=== PATIENT | male | born 1960 | race Caucasian/White ===

== ENCOUNTER 2017-01-03 15:52 | Inpatient (IN) | payer BC ==
[~2017-01-03] VITALS: Ht 182.9 cm; Wt 108.5 kg
[~2017-01-03 15:52] MED LIST: LORT5TAB PO; PHEN12.5 PO; TAMS0.4C67 PO; VITAMINS
[2017-01-03 15:54] VITALS: BP 134/86; PULSE 118; RESP 20; TEMP 98.6; O2SAT 96
--- NOTE | 2017-01-03 16:21 | PD ---
Physical Exam Date Seen by Provider: Jan 03, 2017 Time Seen by Provider: 16:19 Narrative 56 y/o male with Hx anxiety and panic attacks with Hx of severe attack today with reported Syncopy with hitting back of head after passing out. Patient has mild SPENCER and feels fine otherwise now. Vital signs reviewed. Patient stable. Awaiting Bed placement. Data Data Last Documented VS Vital Signs Date Time Temp Pulse Resp B/P Pulse Ox O2 Delivery O2 Flow Rate FiO2 01/03/17 15:54 98.6 118 20 134/86 96 MDM Medical Record Reviewed: Yes Supervised Visit with MIRIAM: Yes Condition: Stable Gavin Smith Jan 03, 2017 16:21
--- NOTE | 2017-01-03 20:49 | PD ---
HPI Chief Complaint: Syncope/Near-Syncope Time Seen by Provider: 20:46 Travel History International Travel<30 days: No Contact w/Intl Traveler<30days: No Traveled to known affect area: No History of Present Illness HPI 56-year-old male with history of anxiety presents to the ED for evaluation of syncopal episode. This occurred 8 hours ago. Patient states that he was coming back from taking out the trash when he had an episode of dizziness and palpitations of the heart. He bent over and took a few deep breaths and woke up an unknown period of time later on the ground. On presentation he denies headache, dizziness, vision changes, speech difficulties, weakness. He denies chest pain, shortness of breath, nausea, vomiting, diaphoresis. He endorses history of similar episodes of palpitations and dizziness which she associates with his anxiety. He sees Dr. Mora regularly, last visit that within the last month. He is never had a cardiac workup. He is an active smoker since the age of 14. PFSH Past Medical History Diminished Hearing: No Past Surgical History Appendectomy: Yes Tonsillectomy: Yes Tympanostomy Tube: Yes Social History Alcohol Use: Yes (2-3 vodka daily) Tobacco Use: Yes Substance Use: No Allergies-Medications (Allergen,Severity, Reaction): Coded Allergies: No Known Allergies (Verified , 01/03/17) Reported Meds & Prescriptions Reported Meds & Active Scripts Active Reported Alprazolam 0.25 Mg Tab 0 PO Q4H PRN [Vitamins] DAILY Review of Systems Except as stated in HPI: all other systems reviewed are Neg Physical Exam Narrative GENERAL: Well-nourished, well-developed white male in no acute distress. SKIN: Focused skin assessment warm/dry. Tender ecchymosis on the right occiput. HEAD: Normocephalic. No tenderness to palpation of the skull bones. EYES: No scleral icterus. No injection or drainage. NECK: Supple, trachea midline. No JVD or lymphadenopathy. CARDIOVASCULAR: Regular rate and rhythm without murmurs, gallops, or rubs. RESPIRATORY: Breath sounds there and I'll sounds. Equal bilaterally. No accessory muscle use. GASTROINTESTINAL: Abdomen soft, non-tender, nondistended. MUSCULOSKELETAL: No cyanosis, or edema. NEUROLOGICAL: Awake and alert. Cranial nerves II through XII intact. Motor and sensory grossly within normal limits. 5/5 muscle strength in all muscle groups. Normal speech. BACK: Nontender without obvious deformity. No CVA tenderness. Data Data Last Documented VS Vital Signs Date Time Temp Pulse Resp B/P Pulse Ox O2 Delivery O2 Flow Rate FiO2 01/03/17 22:50 75 18 111/74 99 Room Air 01/03/17 15:54 98.6 Orders Electrocardiogram (01/03/17 ) Complete Blood Count With Diff (01/03/17 20:48) Comprehensive Metabolic Panel (01/03/17 20:48) Troponin I (01/03/17 20:48) Chest, Single Ap (01/03/17 ) Admit Order (Ed Use Only) (01/03/17 ) Labs Laboratory Tests Test 01/03/17 21:05 White Blood Count 11.5 TH/MM3 Red Blood Count 4.71 MIL/MM3 Hemoglobin 14.8 GM/DL Hematocrit 45.0 % Mean Corpuscular Volume 95.4 FL Mean Corpuscular Hemoglobin 31.5 PG Mean Corpuscular Hemoglobin 33.0 % Concent Red Cell Distribution Width 14.0 % Platelet Count 207 TH/MM3 Mean Platelet Volume 8.7 FL Neutrophils (%) (Auto) 62.5 % Lymphocytes (%) (Auto) 27.0 % Monocytes (%) (Auto) 6.5 % Eosinophils (%) (Auto) 3.4 % Basophils (%) (Auto) 0.6 % Neutrophils # (Auto) 7.2 TH/MM3 Lymphocytes # (Auto) 3.1 TH/MM3 Monocytes # (Auto) 0.7 TH/MM3 Eosinophils # (Auto) 0.4 TH/MM3 Basophils # (Auto) 0.1 TH/MM3 CBC Comment DIFF FINAL Differential Comment Sodium Level 138 MEQ/L Potassium Level 4.1 MEQ/L Chloride Level 106 MEQ/L Carbon Dioxide Level 24.7 MEQ/L Anion Gap 7 MEQ/L Blood Urea Nitrogen 17 MG/DL Creatinine 1.11 MG/DL Estimat Glomerular Filtration 68 ML/MIN Rate Random Glucose 89 MG/DL Calcium Level 8.4 MG/DL Total Bilirubin 1.1 MG/DL Aspartate Amino Transf 27 U/L (AST/SGOT) Alanine Aminotransferase 52 U/L (ALT/SGPT) Alkaline Phosphatase 66 U/L Troponin I 0.03 NG/ML Total Protein 6.8 GM/DL Albumin 3.7 GM/DL Magnesium Level 2.3 MG/DL MDM Medical Decision Making Medical Screen Exam Complete: Yes Emergency Medical Condition: Yes Differential Diagnosis Cardiogenic syncope versus arrhythmia versus anxiety versus contusion versus less likely skull fracture versus less likely ICH versus other Narrative Course 56-year-old male with PMH of anxiety presents to the ED 8 hours after an episode of syncope. Patient states he was taking out the garbage, had a few seconds of palpitations and shortness of breath, woke up on the ground. Reports history of similar episodes of palpitations and SOB which she attributes to anxiety. He's never had a cardiac workup. Asymptomatic on presentation. Physical exam is unremarkable. No focal neuro deficits. Lab work is pending. Disposition per Dr. Maxwell. Condition: Stable Dania Cordero Jan 03, 2017 20:49
[2017-01-03] MEDS ORDERED: ALPR0.25 PO (20:52)
[2017-01-03 20:53] VITALS: BP 116/86; PULSE 84; RESP 20
--- NOTE | 2017-01-03 21:02 | RADRPT ---
EXAM DATE/TIME: 01/03/2017 20:59 [facility] COMPARISON: No previous studies available for comparison. INDICATIONS : Syncope MEDICAL HISTORY : None. SURGICAL HISTORY : None. ENCOUNTER: Initial ACUITY: 1 day PAIN SCORE: 0/10 LOCATION: chest FINDINGS: Lungs are focally clear. Cardiac silhouette is mildly enlarged. Pulmonary vascularity is satisfactory . There is nothing to suggest effusion. CONCLUSION: Mild cardiomegaly Jorge Bucio MD on January 03, 2017 at 21:00 Board Certified Radiologist. This report was verified electronically.
[2017-01-03 21:30] LABS: AUTOMATED NEUTROPHIL # 7.2 TH/MM3 (1.8-7.7); BASOPHIL # 0.1 TH/MM3 (0-0.2); BASOPHIL % 0.6 % (0.0-2.0); EOSINOPHIL # 0.4 TH/MM3 (0-0.4); EOSINOPHIL % 3.4 % (0.0-4.0); HEMO FLAGS DIFF FINAL; LYMPHOCYTE # 3.1 TH/MM3 (1.0-4.8); MEAN CELL VOLUME 95.4 FL (80.0-100.0); MEAN CORPUSCULAR HEMOGLOBIN 31.5 PG (27.0-34.0); MONO % 6.5 % (0.0-8.0); NEUT % 62.5 % (16.0-70.0); PLATELET COUNT 207 TH/MM3 (150-450); RED BLOOD COUNT 4.71 MIL/MM3 (4.50-5.90); WHITE BLOOD COUNT 11.5 TH/MM3 (4.0-11.0)
[2017-01-03 21:43] LABS: ALT (GPT) 52 U/L (12-78)
[2017-01-03 21:47] LABS: ALKALINE PHOSPHATASE 66 U/L (45-117); TOTAL BILIRUBIN ADULT 1.1 MG/DL (0.2-1.0)
[2017-01-03 21:54] LABS: ANION GAP 7 MEQ/L (5-15); AST (GOT) 27 U/L (15-37); BICARBONATE 24.7 MEQ/L (21.0-32.0); BLOOD UREA NITROGEN 17 MG/DL (7-18); CHLORIDE 106 MEQ/L (98-107); GLOMERULAR FILTRATION RATE 68 ML/MIN (>89); POTASSIUM 4.1 MEQ/L (3.5-5.1); SODIUM (NA) 138 MEQ/L (136-145)
--- NOTE | 2017-01-03 22:35 | PD ---
Data Data Last Documented VS Vital Signs Date Time Temp Pulse Resp B/P Pulse Ox O2 Delivery O2 Flow Rate FiO2 01/03/17 22:50 75 18 111/74 99 Room Air 01/03/17 15:54 98.6 Orders Electrocardiogram (01/03/17 ) Complete Blood Count With Diff (01/03/17 20:48) Comprehensive Metabolic Panel (01/03/17 20:48) Troponin I (01/03/17 20:48) Chest, Single Ap (01/03/17 ) Admit Order (Ed Use Only) (01/03/17 ) Labs Laboratory Tests Test 01/03/17 21:05 White Blood Count 11.5 TH/MM3 Red Blood Count 4.71 MIL/MM3 Hemoglobin 14.8 GM/DL Hematocrit 45.0 % Mean Corpuscular Volume 95.4 FL Mean Corpuscular Hemoglobin 31.5 PG Mean Corpuscular Hemoglobin 33.0 % Concent Red Cell Distribution Width 14.0 % Platelet Count 207 TH/MM3 Mean Platelet Volume 8.7 FL Neutrophils (%) (Auto) 62.5 % Lymphocytes (%) (Auto) 27.0 % Monocytes (%) (Auto) 6.5 % Eosinophils (%) (Auto) 3.4 % Basophils (%) (Auto) 0.6 % Neutrophils # (Auto) 7.2 TH/MM3 Lymphocytes # (Auto) 3.1 TH/MM3 Monocytes # (Auto) 0.7 TH/MM3 Eosinophils # (Auto) 0.4 TH/MM3 Basophils # (Auto) 0.1 TH/MM3 CBC Comment DIFF FINAL Differential Comment Sodium Level 138 MEQ/L Potassium Level 4.1 MEQ/L Chloride Level 106 MEQ/L Carbon Dioxide Level 24.7 MEQ/L Anion Gap 7 MEQ/L Blood Urea Nitrogen 17 MG/DL Creatinine 1.11 MG/DL Estimat Glomerular Filtration 68 ML/MIN Rate Random Glucose 89 MG/DL Calcium Level 8.4 MG/DL Total Bilirubin 1.1 MG/DL Aspartate Amino Transf 27 U/L (AST/SGOT) Alanine Aminotransferase 52 U/L (ALT/SGPT) Alkaline Phosphatase 66 U/L Troponin I 0.03 NG/ML Total Protein 6.8 GM/DL Albumin 3.7 GM/DL MDM Supervised Visit with MIRIAM: Yes Narrative Course The history, exam, and medical decision-making in the associated mid-level provider note were completed with my assistance. I reviewed and agree with the findings presented. I attest that I had a [id number] encounter with the patient on the same day, and personally performed and documented my assessment and findings in the medical record. *My assessment and Findings: 56 year-old woman who presents emergency department complaining of palpitations and a syncopal episode. He's had multiple episodes of palpitations in the past , ongoing for the past year or 2, usually once every month or 2. He is a so she with exertion outside, and exposure to heat. Today he had similar episode, squatted down to deep breath secondary normal he does but then woke up on the ground. His a bump on the back of his head. This happened about 8 hours ago or so. He has had some long flights recently but no other risk factors for DVT or PE. He looks well. EKG shows right bundle branch block with a left posterior fascicular block. No old for comparison. He looks well. He's been asymptomatic since the episode. He has a history of tobacco use. Labs and chest x-ray with mild cardiomegaly. Taken altogether, history is a little bit suspicious for arrhythmia, he has an abnormal EKG, he is multiple risk factors, he also some cardiomegaly on his chest x-ray that could predispose him to a dangerous arrhythmia, given this, we' ll plan on admission for observation for cardiac monitoring. Diagnosis Primary Impression: Syncope Admitting Information Admitting Physician Requests: Observation Condition: Stable Nate Maxwell MD Jan 03, 2017 22:35
[2017-01-03 22:50] VITALS: BP_SYST 11; BP_SYST 111; BP_DIAS 74; PULSE 70; PULSE 75; RESP 18; O2SAT 99
[2017-01-03] MEDS ORDERED: NALOXONE HCL 0.4 MG/ML AMP IV PRN (23:15)
[2017-01-03] MEDS ORDERED: SODIUM CHLORIDE 0.9% FLUSH 10 ML FLUSH IV FLUSH PRN (23:15)
--- NOTE | 2017-01-03 23:54 | HHI.HP ---
[facility] Unknown Admission Diagnosis syncope Diagnoses: (1) Syncope Chief Complaint: "I passed out and hit my head" Travel History International Travel<30 Days: No Contact w/Intl Traveler <30 Da: No Traveled to Known Affected Are: No History of Present Illness Written by aRdha Wang, acting as scribe for Dr. Ashford on 01/03/17 at 23:54. Walked out from office to [employer]; felt palpitations and dizziness and then passed out and hit his head on concrete when he fell. The next thing he remembers is waking up and looking at the prudence. The patient reports diaphoresis but states it was hot outside. Denies paresthesias; denies any unilateral weakness. He has had similar episodes that are nearly syncopal in nature - palpitations and dizziness - sits down and relaxes, drinks water and this relieves the symptoms. Last episode of near syncope occurred 2 months ago. Reports some accompanying shortness of breath. Symptoms (near syncope) have been going on intermittently for the past 2 - 3 years. Reports shortness of breath during hotter days. Reports bilateral knee pains and reports left calf "cramps". - 25 of December, he traveled to [place]. Denies nausea, vomiting, or diarrhea. Denies black or red stool, hematuria, dysuria. Denies cough or fever. Had a colonoscopy 6 months ago - polyps found. Review of Systems Except as stated in HPI: all other systems reviewed are Neg Past Family Social History Past Medical History Colon polyps Nephrolithiasis Denies hypertension, diabetes, CAD, CHF, breathing problems, liver problems, kidney problems, DVT, PE, CVA, seizures, or cancer . Past Surgical History Hernia repair as child Tympanostomy tubes as a child Appendectomy Colonoscopy 6 months ago Reported Medications takes several otc meds and supplements prescribed by his chiropractor . Allergies: Coded Allergies: No Known Allergies (Verified , 01/03/17) Active Ordered Medications Current Medications Sodium Chloride (NS Flush) 2 ml UNSCH PRN IV FLUSH FLUSH AFTER USING IV ACCESS ; Start 01/03/17 at 23:15 Sodium Chloride (NS Flush) 2 ml BID IV FLUSH ; Start 01/04/17 at 09:00 Naloxone HCl (Narcan Inj) 0.4 mg UNSCH PRN IV SEE LABEL COMMENTS; Start at 23:15 . Family History Mother with atrial fibrillation and lung problems (had only one lung) Brother with lactose intolerance . Social History Tobacco: smokes cigarettes 1 to 2 PPD Alcohol: drinks a couple of mixed drinks mostly on weekends Illicit Drugs: denies IVD use, denies cocaine Originally from [place] . Physical Exam Vital Signs Vital Signs Date Time Temp Pulse Resp B/P Pulse Ox O2 Delivery O2 Flow Rate FiO2 01/03/17 22:50 75 18 111/74 99 Room Air 01/03/17 20:53 84 20 116/86 Room Air 01/03/17 20:45 Room Air 01/03/17 15:54 98.6 118 20 134/86 96 Physical Exam GENERAL: This is a well-nourished, well-developed patient, in no apparent distress. SKIN: No rashes, ecchymoses or lesions. Cool and dry. HEAD: Atraumatic. Normocephalic. EYES: No scleral icterus. No injection or drainage. ENT: Nose without bleeding, purulent drainage. NECK: Trachea midline. No JVD. CARDIOVASCULAR: Irregular rate and rhythm without murmurs, gallops, or rubs. RESPIRATORY: Clear to auscultation. Breath sounds equal bilaterally. No wheezes , rales, or rhonchi. GASTROINTESTINAL: Abdomen soft, non-tender, nondistended. No guarding. MUSCULOSKELETAL: Extremities without clubbing, cyanosis, or edema. No calf tenderness. NEUROLOGICAL: Awake and alert. Motor and sensory grossly within normal limits. Normal speech. . Laboratory Laboratory Tests Test 01/03/17 21:05 White Blood Count 11.5 Red Blood Count 4.71 Hemoglobin 14.8 Hematocrit 45.0 Mean Corpuscular Volume 95.4 Mean Corpuscular Hemoglobin 31.5 Mean Corpuscular Hemoglobin 33.0 Concent Red Cell Distribution Width 14.0 Platelet Count 207 Mean Platelet Volume 8.7 Neutrophils (%) (Auto) 62.5 Lymphocytes (%) (Auto) 27.0 Monocytes (%) (Auto) 6.5 Eosinophils (%) (Auto) 3.4 Basophils (%) (Auto) 0.6 Neutrophils # (Auto) 7.2 Lymphocytes # (Auto) 3.1 Monocytes # (Auto) 0.7 Eosinophils # (Auto) 0.4 Basophils # (Auto) 0.1 CBC Comment DIFF FINAL Differential Comment Sodium Level 138 Potassium Level 4.1 Chloride Level 106 Carbon Dioxide Level 24.7 Anion Gap 7 Blood Urea Nitrogen 17 Creatinine 1.11 Estimat Glomerular Filtration 68 Rate Random Glucose 89 Calcium Level 8.4 Total Bilirubin 1.1 Aspartate Amino Transf 27 (AST/SGOT) Alanine Aminotransferase 52 (ALT/SGPT) Alkaline Phosphatase 66 Troponin I 0.03 Total Protein 6.8 Albumin 3.7 Result Diagram: 01/03/17210401/03/172104 Imaging Last Impressions Chest X-Ray 01/03/17 0000 Signed Impressions: Service Date/Time: Tuesday, January 03, 2017 20:59 - CONCLUSION: Mild cardiomegaly Jorge Bucio MD . Assessment and Plan Problem List: (1) Syncope ICD Code: R55 Status: Acute Assessment and Plan Syncope - 12 lead EKG personally reviewed and shows first-degree AV block, right bundle branch block, left anterior fascicular block along with frequent PVCs - no prior EKGs are available for comparison - check 2D echocardiogram to evaluate cardiac structure and function - carotid ultrasound to evaluate for carotid stenosis - check D-dimer - serial EKGs and cardiac enzymes to r/o ACS - continuous cardiac telemetry to monitor for cardiac arrhythmia - Cardiology consultation - given that pt has had few episodes of near syncope- and today's episode of true syncope preceded by palpitations, and EKG showing RBBB with LAFB (ppm indication vs loop recorder?) - Check magnesium level to r/o hypomagnesemia as contributing factor to cardiac irritability DVT prophylaxis - Lovenox 40 mg subq [id number] This note was transcribed by [email or web address] [Radha Wang]. I, Dr. Casandra Ashford personally performed the history, physical exam, and medical decision making; and confirmed the accuracy of the information in the transcribed note. Authenticated by Dr. Casandra Ashford on 01/03/17 at 23:54. Discussed Condition With ER physician, patient . Radha Wang Jan 03, 2017 23:54 Casandra Ashford MD Jan 04, 2017 03:16
[2017-01-03 23:55] VITALS: BP 103/67; PULSE 75; RESP 18; O2SAT 97
[2017-01-04] VITALS (8 sets, daily range): BP systolic 89–135; BP diastolic 58–79; PULSE 65–86; RESP 14–19; TEMP 97.8–98.6; O2SAT 94–99
[2017-01-04] MEDS: ENOXAPARIN SODIUM 40 MG/0.4 ML SYRINGE SQ SCH (01:07)
[2017-01-04] MEDS: SODIUM CHLORIDE 0.9% FLUSH 10 ML FLUSH IV FLUSH SCH ×2 (08:01→19:45)
--- NOTE | 2017-01-04 08:45 | PD.CONS ---
HPI Service CV Consult Requested By Reason for Consult syncope Primary Care Physician Unknown History of Present Illness Here with a syncopal episode. He does not have any significant past medical history. He has had afternoon episodes of near syncope. These he has been able to recognize symptoms, lightheadedness and tachycardia, and then calm himself and the symptoms abort. This episode happened in the morning. He was taking office trash out to a dumpster and on the way back began having lightheadedness and tachycardia. He bent over to try to stop it and the next thing he knew he was staring up at the prudence. He states he drinks 4 to 5 bottles of water per day. He smoke one to two packs of cigarettes per day. Review of telemetry shows multiple PVC's in singlets and triplets and they are multifocal. (Clem Aranda) Review of Systems Consitutional: DENIES: Fatigue, Fever, Chills, Weight gain, Weight loss Eyes: DENIES: Amaurosis Fugax, Change in vision HEENT: COMPLAINS OF: Lightheadedness Respiratory: DENIES: See HPI, Cough, Snoring, Shortness of breath, Wheezing, Sputum production Cardiovascular: COMPLAINS OF: Tachycardia Gastrointestinal: DENIES: Nausea, Vomiting, Change in bowel habits, Reflux, Bloody stools, Melena Genitourinary: DENIES: Urinary incontinence, Difficulty voiding Integumentary: DENIES: Rash Neurologic: DENIES: Tingling or numbness, Memory problems, Poor Balance, Stroke symptoms Musculoskeletal: DENIES: Joint pain, Muscle pain, Limited range of motion, Back pain Psychiatric: COMPLAINS OF: Anxiety, Depression, Sleep disturbances Hematologic: DENIES: Bruising tendencies, Bleeding tendencies Endocrine: DENIES: Weight gain, Weight loss, Thyroid disease (Clem Aranda ) Past Family Social History Allergies: Coded Allergies: No Known Allergies (Verified , 01/03/17) Past Medical History Colon polyps Nephrolithiasis Reported Medications Reported Meds & Active Scripts Active Reported Alprazolam 0.25 Mg Tab 0 PO Q4H PRN [Vitamins] DAILY Active Ordered Medications Current Medications Medications (Trade) Dose Ordered Sig/Mohan Route Start Time Stop Time Status Last Admin (NS Flush) 2 ml UNSCH PRN IV FLUSH 01/03/17 23:15 (NS Flush) 2 ml BID IV FLUSH 01/04/17 09:00 01/04/17 08:01 (Narcan Inj) 0.4 mg UNSCH PRN IV 01/03/17 23:15 (Lovenox Inj) 40 mg Q24H SQ 01/04/17 01:00 01/04/17 01:07 Family History Mother with atrial fibrillation and lung problems (had only one lung) Social History see HPI occasional EtOH denies substance abuse (Clem Aranda) Physical Exam Vital Signs Vital Signs Date Time Temp Pulse Resp B/P Pulse Ox O2 Delivery O2 Flow Rate FiO2 01/04/17 07:24 97.8 84 14 89/58 95 106/67 108/68 01/04/17 03:23 98.6 76 19 135/67 94 01/04/17 02:16 65 01/04/17 00:58 97.9 86 18 108/70 99 01/03/17 23:55 75 18 103/67 97 Room Air 01/03/17 22:50 75 18 111/74 99 Room Air 01/03/17 20:53 84 20 116/86 Room Air 01/03/17 20:45 Room Air 01/03/17 15:54 98.6 118 20 134/86 96 Physical Exam GENERAL: Well-nourished, well-developed patient in no apparent distress. NECK: No JVD. No carotid bruit. CARDIOVASCULAR: Regular rate and rhythm. S1/S2 no murmur, rub, or gallop. RESPIRATORY: No accessory muscle use. Clear to auscultation. Breath sounds equal bilaterally. GASTROINTESTINAL: Abdomen soft, non-tender, nondistended. MUSCULOSKELETAL: Extremities without clubbing, cyanosis, or edema. Laboratory Laboratory Tests Test 01/03/17 01/04/17 01/04/17 21:05 00:40 03:54 White Blood Count 11.5 Red Blood Count 4.71 Hemoglobin 14.8 Hematocrit 45.0 Mean Corpuscular Volume 95.4 Mean Corpuscular Hemoglobin 31.5 Mean Corpuscular Hemoglobin 33.0 Concent Red Cell Distribution Width 14.0 Platelet Count 207 Mean Platelet Volume 8.7 Neutrophils (%) (Auto) 62.5 Lymphocytes (%) (Auto) 27.0 Monocytes (%) (Auto) 6.5 Eosinophils (%) (Auto) 3.4 Basophils (%) (Auto) 0.6 Neutrophils # (Auto) 7.2 Lymphocytes # (Auto) 3.1 Monocytes # (Auto) 0.7 Eosinophils # (Auto) 0.4 Basophils # (Auto) 0.1 CBC Comment DIFF FINAL Differential Comment Sodium Level 138 Potassium Level 4.1 Chloride Level 106 Carbon Dioxide Level 24.7 Anion Gap 7 Blood Urea Nitrogen 17 Creatinine 1.11 Estimat Glomerular Filtration 68 Rate Random Glucose 89 Calcium Level 8.4 Total Bilirubin 1.1 Aspartate Amino Transf 27 (AST/SGOT) Alanine Aminotransferase 52 (ALT/SGPT) Alkaline Phosphatase 66 Troponin I 0.03 0.02 Total Protein 6.8 Albumin 3.7 Magnesium Level 2.3 D-Dimer Quantitative (PE/DVT) 0.29 Total Creatine Kinase 75 (Clem Aranda) Result Diagram: 01/03/17210401/03/172104 Assessment and Plan Problem List: (1) Syncope Assessment and Plan multiple ectopy on telemetry is concerning. Cardiac workup shows negative troponin and RBBB on ECG. Will await 2D results. Will plan Lexiscan SPECT to r/ o ischemia. Continue telemetry monitoring (Clem Aranda) Assessment and Plan I suspect syncope was orthostatic secondary to positional change, but he is having PVCs and 3 beat NSVT, asymptomatic. no CP. trop neg. + systolic murmur, prob MR or TR plan 2d echo lexiscan if EF normal and no ischemia, plan for BB and outpatient holter. if EF abn, valve dz, or ischemia, will need admission and further workup. (Nate Trujillo MD) Clem Aranda Jan 04, 2017 8:45 am Nate Trujillo MD Jan 04, 2017 10:00 am
[2017-01-04 10:06] LABS: AUTOMATED NEUTROPHIL # 5.6 TH/MM3 (1.8-7.7); BASOPHIL # 0.1 TH/MM3 (0-0.2); BASOPHIL % 0.6 % (0.0-2.0); EOSINOPHIL # 0.2 TH/MM3 (0-0.4); EOSINOPHIL % 2.6 % (0.0-4.0); HEMO FLAGS DIFF FINAL; LYMPH % 22.5 % (9.0-44.0); LYMPHOCYTE # 1.9 TH/MM3 (1.0-4.8); MEAN CELL VOLUME 94.1 FL (80.0-100.0); MEAN CORPUSCULAR HEMOGLOBIN 32.1 PG (27.0-34.0); MEAN CORPUSCULAR HGB CONC 34.1 % (32.0-36.0); MONO % 6.9 % (0.0-8.0); NEUT % 67.4 % (16.0-70.0); PLATELET COUNT 196 TH/MM3 (150-450); RED BLOOD COUNT 4.35 MIL/MM3 (4.50-5.90); RED CELL DISTRIBUTION WIDTH 13.8 % (11.6-17.2); WHITE BLOOD COUNT 8.3 TH/MM3 (4.0-11.0)
[2017-01-04 10:39] LABS: BICARBONATE 28.2 MEQ/L (21.0-32.0); POTASSIUM 4.9 MEQ/L (3.5-5.1)
--- NOTE | 2017-01-04 11:59 | RADRPT ---
EXAM DATE/TIME: 01/04/2017 11:21 [facility] COMPARISON: No previous studies available for comparison. INDICATIONS : Syncope. MEDICAL HISTORY : Kidney stones. SURGICAL HISTORY : Tonsillectomy. Tympanostomy tube. Appendectomy. ENCOUNTER: Initial ACUITY: 1 day PAIN SCORE: 0/10 LOCATION: Bilateral neck PEAK SYSTOLIC VELOCITIES (cm/sec): ICA/CCA RATIO: Right: 0.6 Left: 1.0 ICA: Right: 67 Left: 91 CCA: Right: 108 Left: 95 ECA: Right: 102 Left: 82 VERTEBRAL: Right: 39 antegrade Left: 37 antegrade Elevated flow velocities and ICA/CCA ratios have been found to correlate with increased degrees of vessel stenosis, calculated as percentage of diameter relative to a normal segment of distal ICA/CCA FINDINGS: RIGHT CAROTID: No significant stenosis is visualized. The waveforms are within normal limits. LEFT CAROTID: There is focal mild atherosclerotic plaquing at the origin of the left internal carotid artery. No si gnificant stenosis is visualized. The waveforms are within normal limits. VERTEBRAL ARTERIES: Antegrade flow is seen in both vertebral arteries. MISCELLANEOUS: None. CONCLUSION: 1. Mild atherosclerotic plaquing at the origin of the left internal carotid artery. 2. Otherwise, unremarkable examination. No focal high grade or hemodynamically significant stenosis i s demonstrated. Caesar Kaiser MD on January 04, 2017 at 11:57 Board Certified Radiologist. This report was verified electronically.
--- NOTE | 2017-01-04 12:19 | HHI.PR ---
Subjective Remarks Follow-up for syncope. Patient with SO at bedside. No further palpitations, dizziness, or feelings like he cannot pass out overnight. Going for stress test at this time. No other acute complaints or concerns at this time, just wants to find out what is causing these episodes. Objective Vitals Vital Signs Date Time Temp Pulse Resp B/P Pulse Ox O2 Delivery O2 Flow Rate FiO2 01/04/17 07:24 97.8 84 14 89/58 95 106/67 108/68 01/04/17 03:23 98.6 76 19 135/67 94 01/04/17 02:16 65 01/04/17 00:58 97.9 86 18 108/70 99 01/03/17 23:55 75 18 103/67 97 Room Air 01/03/17 22:50 75 18 111/74 99 Room Air 01/03/17 20:53 84 20 116/86 Room Air 01/03/17 20:45 Room Air 01/03/17 15:54 98.6 118 20 134/86 96 Result Diagram: 01/04/17 0929 01/04/17 0929 Imaging Last Impressions Chest X-Ray 01/03/17 0000 Signed Impressions: Service Date/Time: Tuesday, January 03, 2017 20:59 - CONCLUSION: Mild cardiomegaly Jorge Bucio MD Objective Remarks GENERAL: Well-developed well-nourished. In no acute distress. SKIN: Warm and dry. No lesions noted. HEENT: Normocephalic. Pupils equal and round. Mucous membranes pink and moist. CARDIOVASCULAR: Regular rate and rhythm. No murmur appreciated. RESPIRATORY: No accessory muscle use. Clear to auscultation. Breath sounds equal bilaterally. GASTROINTESTINAL: Abdomen soft, non-tender, nondistended. Bowel sounds x4. MUSCULOSKELETAL: No obvious deformities. No clubbing or cyanosis. No edema. NEUROLOGICAL: Awake and alert. No focal neurological deficits. Moves upper and lower extremities spontaneously. Normal speech. PSYCHIATRIC: Appropriate mood and affect; insight and judgment normal. A/P Problem List: (1) Syncope ICD Code: R55 Status: Acute Assessment and Plan 56-year-old male who presented for palpitations, dizziness, and syncope Syncope Reviewed: EKG showed first-degree AV block, right bundle branch block, left anterior fascicular block along with frequent PVCs - no prior EKGs available for comparison. Carotid ultrasound with no focal or hemodynamically significant stenosis. D-dimer within normal limits. Troponin within normal limits 3. Non-orthostatic. Labs essentially within normal limits. - check 2D echocardiogram to evaluate cardiac structure and function - continuous cardiac telemetry to monitor for cardiac arrhythmia - Cardiology consulted, planning on stress test and agree with echocardiogram - IVF - Follow up BMP and TSH DVT prophylaxis - Lovenox 40 mg subq [id number] Discharge Planning Follow-up results with syncope workup as well as cardiology recommendations. Arturo Lao Jan 04, 2017 12:19
[2017-01-04] MEDS ORDERED: SODIUM CHLOR 0.9% 1000 ML INJ 1,000 ML IV SCH (13:00)
[2017-01-04] MEDS ORDERED: REGADENOSON INJ 0.4 MG/5 ML SYR ONE (13:06)
--- NOTE | 2017-01-04 14:45 | RADRPT ---
EXAM DATE/TIME: 01/04/2017 12:25 [facility] COMPARISON: No previous studies available for comparison. INDICATIONS : Syncope episode. Right bundle branch block. DOSE: 30.7 mCi Tc99m Myoview at stress. 10.0 mCi Tc99m Myoview at rest. 0.4 mg Lexiscan STRESS SYMPTOMS: Stomach pressure. EJECTION FRACTION: 32% MEDICAL HISTORY : None SURGICAL HISTORY : Appendectomy. ENCOUNTER: Initial ACUITY: 1 day PAIN SCALE: 0/10 LOCATION: Bilateral chest TECHNIQUE: The patient underwent pharmacologic stress with infusion of prescribed dose. Continuous ECG tracing was monitored during stress. Gated SPECT imaging was performed after stress and conventional SPECT i maging was performed at rest. The examination was performed on a SPECT/CT scanner, both attenuation and non-corrected datasets were reviewed. FINDINGS: DISTRIBUTION: The maximum perfused segment at stress is in the septal wall. PERFUSION STUDY: There is some diminished perfusion along the inferior wall. However, this remains fixed on the rest i mages. Otherwise there is good uptake of tracer activity throughout the rest of the left ventricle GATED STUDY: There is diffuse global hypokinesis. CONCLUSION: 1. Fixed defect along the inferior wall on the stress and rest images. 2. No evidence to suggest ischemic myocardial changes are seen on today's exam. 3. Diffuse global hypokinesis with an ejection fraction of 32%. RISK CATEGORY: low Caesar Kaiser MD on January 04, 2017 at 14:41 Board Certified Radiologist. This report was verified electronically.
--- NOTE | 2017-01-04 15:37 | EKG ---
Date Performed: 01/03/2017 Time Performed: 21:26:18 PTAGE: 56 years EKG: Sinus rhythm WITH FIRST DEGREE AV BLOCK WITH FREQUENT VENTRICULAR PREMATURE COMPLEXES RIGHT BUNDLE BRANCH BLOCK L EFT POSTERIOR FASCICULAR BLOCK ABNORMAL ECG NO PREVIOUS TRACING DOCTOR: Polina Morgan Interpretating Date/Time 01/04/2017 15:36:12
[2017-01-04] MEDS ORDERED: DEFIB EXTERNAL (16:45)
--- NOTE | 2017-01-04 16:52 | ECHRPT ---
Indication: SYNCOPE CONCLUSIONS Moderately to severelywall thickness is normal. The left ventricular systolic function is severely reduced with an estimated ejection fraction in th e range of 20-25%. There is diffuse global hypokinesis with distinct regional wall motion abnormalities. dilated left ventricle. The right ventricle is moderately dilated. The right ventricular systoilc function is mildly decreased. The right atrial size is moderately dilated. Moderate mitral valve regurgitation. Aortic valve sclerosis is present. Mild aortic valve regurgitation. Mild aortic valve stenosis. There is moderate tricuspid regurgitation. Normal estimated pulmonary pressures. The pulmonary valve is not well visualized. Trivial pulmonary valve regurgitation. BP: 108 / 68 HR: 84 Rhythm: Sinus, PVCs, PACs MEASUREMENTS (Male / Female) Normal Values Technical Quality:Fair 2D ECHO LV Diastolic Diameter PLAX 7.0 cm 4.2 - 5.9 / 3.9 - 5.3 cm LV Systolic Diameter PLAX 6.4 cm IVS Diastolic Thickness 1.0 cm 0.6 - 1.0 / 0.6 - 0.9 cm LVPW Diastolic Thickness 1.0 cm 0.6 - 1.0 / 0.6 - 0.9 cm LV Relative Wall Thickness 0.3 LVOT Diameter 2.9 cm Aortic Root Diameter 3.8 cm LA Systolic Diameter LX 3.8 cm 3.0 - 4.0 / 2.7 - 3.8 cm M-MODE AV Cusp Separation MM 1.7 cm DOPPLER AV Peak Velocity 210.0 cm/s AV Peak Gradient 17.6 mmHg AV Mean Gradient 12.0 mmHg AV Velocity Time Integral 43.3 cm LVOT Peak Velocity 62.4 cm/s LVOT Peak Gradient 1.6 mmHg LVOT Velocity Time Integral 13.1 cm LVOT Cardiac Index 3036.5 cm/minm AV Area Cont Eq vti 2.0 cm AV Area Cont Eq pk 2.0 cm Mitral E Point Velocity 112.0 cm/s Mitral A Point Velocity 79.5 cm/s Mitral E to A Ratio 1.4 LV E' Lateral Velocity 5.9 cm/s Mitral E to LV E' Lateral Ratio 18.8 LV E' Septal Velocity 5.9 cm/s Mitral E to LV E' Septal Ratio 18.8 TR Peak Velocity 265.0 cm/s TR Peak Gradient 28.1 mmHg PV Peak Velocity 43.6 cm/s PV Peak Gradient 0.8 mmHg FINDINGS LEFT VENTRICLE Moderately to severelywall thickness is normal. The left ventricular systolic function is severely reduced with an estimated ejection fraction in th e range of 20-25%. There is diffuse global hypokinesis with distinct regional wall motion abnormalities. dilated left ventricle. RIGHT VENTRICLE The right ventricle is moderately dilated. The right ventricular systoilc function is mildly decreased. LEFT ATRIUM The left atrial size is normal. RIGHT ATRIUM The right atrial size is moderately dilated. ATRIAL SEPTUM Normal atrial septal thickness without atrial level shunting by limited color doppler interrogation. AORTA The aortic root and proximal ascending aorta are normal in size on limited imaging. MITRAL VALVE Structurally normal mitral valve. Moderate mitral valve regurgitation. AORTIC VALVE Trileaflet aortic valve. Aortic valve sclerosis is present. Mild aortic valve regurgitation. Mild aortic valve stenosis. TRICUSPID VALVE Structurally normal tricuspid valve. There is moderate tricuspid regurgitation. Normal estimated pulmonary pressures. PULMONARY VALVE The pulmonary valve is not well visualized. Trivial pulmonary valve regurgitation. VESSELS The inferior vena cava is normal in size. PERICARDIUM No pericardial effusion. Nate Trujillo MD, FACC (Electronically Signed) Final Date:04 January 2017 16:52
[2017-01-05] VITALS (14 sets, daily range): BP systolic 101–118; BP diastolic 61–78; PULSE 67–103; RESP 14–21; TEMP 97.4–98.1; O2SAT 95–100
[2017-01-05] MEDS: ENOXAPARIN SODIUM 40 MG/0.4 ML SYRINGE SQ SCH (02:04)
[2017-01-05] MEDS: SODIUM CHLORIDE 0.9% FLUSH 10 ML FLUSH IV FLUSH SCH ×2 (08:10→22:01)
--- NOTE | 2017-01-05 08:15 | PD.CARD.PN ---
Subjective Subjective Remarks SOB improved + PVCs on tele Objective Medications Active Medications Regadenoson (Lexiscan Inj) 0.4 mg STK-MED ONCE .ROUTE Last administered on 13:06; Admin Dose 0.4 MG; Start 01/04/17 at 13:06; Stop 01/04/17 at 13:07; Status DC Sodium Chloride (NS 1000 ml Inj) 1,000 ml @ 84 mls/hr [id number] IV Last administered on 01/04/17 14:37; Admin Dose 84 MLS/HR; Start 01/04/17 at 13:00; Stop 01/04/17 at 19:58; Status DC Sodium Chloride 2 ml 2 ml BID IV FLUSH Last administered on 01/05/17 08:10; Admin Dose 2 ML; Start 01/04/17 at 09:00 Vital Signs / I&O Vital Signs Date Time Temp Pulse Resp B/P Pulse Ox O2 Delivery O2 Flow Rate FiO2 01/05/17 05:23 98.1 74 18 101/65 98 01/05/17 00:59 98.1 73 21 106/61 100 01/04/17 20:40 98.4 80 18 104/67 95 01/04/17 16:28 97.8 79 16 115/79 95 Physical Exam GENERAL: SKIN: Warm and dry. HEAD: Normocephalic. EYES: No scleral icterus. No injection or drainage. NECK: Supple, trachea midline. No JVD or lymphadenopathy. CARDIOVASCULAR: Regular rate and rhythm 2/6 SM. RESPIRATORY: Breath sounds equal bilaterally. No accessory muscle use. GASTROINTESTINAL: Abdomen soft, non-tender, nondistended. MUSCULOSKELETAL: No cyanosis, or edema. BACK: Nontender without obvious deformity. No CVA tenderness. Laboratory Laboratory Tests Test 01/04/17 09:29 White Blood Count 8.3 TH/MM3 Red Blood Count 4.35 MIL/MM3 Hemoglobin 14.0 GM/DL Hematocrit 41.0 % Mean Corpuscular Volume 94.1 FL Mean Corpuscular Hemoglobin 32.1 PG Mean Corpuscular Hemoglobin 34.1 % Concent Red Cell Distribution Width 13.8 % Platelet Count 196 TH/MM3 Mean Platelet Volume 9.0 FL Neutrophils (%) (Auto) 67.4 % Lymphocytes (%) (Auto) 22.5 % Monocytes (%) (Auto) 6.9 % Eosinophils (%) (Auto) 2.6 % Basophils (%) (Auto) 0.6 % Neutrophils # (Auto) 5.6 TH/MM3 Lymphocytes # (Auto) 1.9 TH/MM3 Monocytes # (Auto) 0.6 TH/MM3 Eosinophils # (Auto) 0.2 TH/MM3 Basophils # (Auto) 0.1 TH/MM3 CBC Comment DIFF FINAL Differential Comment Sodium Level 141 MEQ/L Potassium Level 4.9 MEQ/L Chloride Level 107 MEQ/L Carbon Dioxide Level 28.2 MEQ/L Anion Gap 6 MEQ/L Blood Urea Nitrogen 17 MG/DL Creatinine 1.13 MG/DL Estimat Glomerular Filtration 67 ML/MIN Rate Random Glucose 99 MG/DL Calcium Level 8.6 MG/DL Total Creatine Kinase 71 U/L Troponin I 0.03 NG/ML Imaging Last Impressions Myocardial Perfusion Scan Nuc Med 01/04/17 0000 Signed Impressions: Service Date/Time: Wednesday, January 04, 2017 12:25 - CONCLUSION: 1. Fixed defect along the inferior wall on the stress and rest images. 2. No evidence to suggest ischemic myocardial changes are seen on today's exam. 3. Diffuse global hypokinesis with an ejection fraction of 32%%. RISK CATEGORY: low Caesar Kaiser MD Carotid Artery Ultrasound 01/04/17 0000 Signed Impressions: Service Date/Time: Wednesday, January 04, 2017 11:21 - CONCLUSION: 1. Mild atherosclerotic plaquing at the origin of the left internal carotid artery. 2. Otherwise, unremarkable examination. No focal high grade or hemodynamically significant stenosis is demonstrated. Caesar Kaiser MD Chest X-Ray 01/03/17 0000 Signed Impressions: Service Date/Time: Tuesday, January 03, 2017 20:59 - CONCLUSION: Mild cardiomegaly Jorge Bucio MD Assessment and Plan Problem List: (1) Syncope Assessment and Plan syncope - concern for arrhythmia given tele with NSVT and cardiomyopathy EF 25%. lexiscan high risk needs C needs probable lifevest vs eps will ask EP opinion bp unable to tolerate BB or ACEi. Nate Trujillo MD Jan 05, 2017 08:15
[2017-01-05 09:11] LABS: BICARBONATE 27.7 MEQ/L (21.0-32.0); POTASSIUM 4.2 MEQ/L (3.5-5.1)
--- NOTE | 2017-01-05 09:25 | HHI.PR ---
Subjective Remarks Follow up for syncope, new CHF. The patient reports feeling well today. Denies any specific medical complaints including no headache, lightheadedness, dizziness, chest pain, palpitations, shortness of breath, or abdominal complaints. He is going for cardiac catheterization today. Objective Vitals Vital Signs Date Time Temp Pulse Resp B/P Pulse Ox O2 Delivery O2 Flow Rate FiO2 01/05/17 08:27 97.8 82 16 102/73 98 01/05/17 05:23 98.1 74 18 101/65 98 01/05/17 04:05 68 01/05/17 00:59 98.1 73 21 106/61 100 01/05/17 00:00 69 01/04/17 20:40 98.4 80 18 104/67 95 01/04/17 20:09 77 01/04/17 16:28 97.8 79 16 115/79 95 Result Diagram: 01/04/17 0929 01/05/17 0804 Imaging Last Impressions Myocardial Perfusion Scan Nuc Med 01/04/17 0000 Signed Impressions: Service Date/Time: Wednesday, January 04, 2017 12:25 - CONCLUSION: 1. Fixed defect along the inferior wall on the stress and rest images. 2. No evidence to suggest ischemic myocardial changes are seen on today's exam. 3. Diffuse global hypokinesis with an ejection fraction of 32%%. RISK CATEGORY: low Caesar Kaiser MD Carotid Artery Ultrasound 01/04/17 0000 Signed Impressions: Service Date/Time: Wednesday, January 04, 2017 11:21 - CONCLUSION: 1. Mild atherosclerotic plaquing at the origin of the left internal carotid artery. 2. Otherwise, unremarkable examination. No focal high grade or hemodynamically significant stenosis is demonstrated. Caesar Kaiser MD Chest X-Ray 01/03/17 0000 Signed Impressions: Service Date/Time: Tuesday, January 03, 2017 20:59 - CONCLUSION: Mild cardiomegaly Jorge Bucio MD Objective Remarks GENERAL: Well-nourished, well-developed middle aged male patient in [facility]. SKIN: Warm and dry. No rash. HEENT: Normocephalic. Atraumatic.Pupils equal and round. Mucous membranes pink and moist. NECK: Supple. Trachea midline. CARDIOVASCULAR: Regular rate and rhythm. S1, S2 noted. 2/6 systolic murmur noted. RESPIRATORY: No accessory muscle use. Clear to auscultation. Breath sounds equal bilaterally. GASTROINTESTINAL: Abdomen soft, non-tender, nondistended. Normoactive bowel sounds x4. MUSCULOSKELETAL: No obvious deformities. Extremities without clubbing, cyanosis , or edema. NEUROLOGICAL: Awake and alert. No obvious cranial nerve deficits. Motor grossly within normal limits. Normal speech. PSYCHIATRIC: Appropriate mood and affect; insight and judgment normal. Medications and IVs Current Medications Medications (Trade) Dose Ordered Sig/Mohan Route Start Time Stop Time Status Last Admin (NS Flush) 2 ml UNSCH PRN IV FLUSH 01/03/17 23:15 (NS Flush) 2 ml BID IV FLUSH 01/04/17 09:00 01/05/17 08:10 (Narcan Inj) 0.4 mg UNSCH PRN IV 01/03/17 23:15 (Lovenox Inj) 40 mg Q24H SQ 01/04/17 01:00 01/05/17 02:04 A/P Problem List: (1) Syncope ICD Code: R55 Status: Acute Assessment and Plan 56-year-old male with no significant PMH, presents with palpitations, dizziness , and syncope Syncope: suspect arrhythmia, telemetry with NSVT and new diagnosis of cardiomyopathy Reviewed: EKG showed first-degree AV block, RBBB, LAFB along with frequent PVCs - no prior EKGs available for comparison. Carotid ultrasound with no focal or hemodynamically significant stenosis. D-dimer wnl. ACS ruled out with negative serial cardiac enzymes x3. Non-orthostatic. Labs essentially wnl. - Nuclear stress test shows fixed defect inferior wall; no ishcmic myocardial changes; diffuse global hypokinesis with EF 32% - Echocardiogram with EF 20-25% and mod MR, mod TR - continuous cardiac telemetry to monitor for arrhythmia - Cardiology consulted, plan for cardiac catheterization today - Given IVF, now discontinued with diagnosis of cardiomyopathy Cardiomyopathy/Systolic CHF: diagnosed this admission on echo as above - undergoing C today - Unable to start BB or ACEi secondary to low BP with episodes of hypotension - Check lipid profile, no diabetes with glucose < 100 - Dr. Morgan consulted to consider life vest vs EPS DVT prophylaxis- Lovenox 40 mg subq [id number] Discharge Planning Not yet ready for discharge. Pending [facility] today by Dr. Trujillo and evaluation by Dr. Morgan. Belen Solano PA-C Jan 05, 2017 9:25 am Not yet ready for discharge. Pending [facility] today by Dr. Trujillo and evaluation by Dr. Morgan. Belen Solano PA-C Jan 05, 2017 9:25 am
[2017-01-05 10:38] LABS: HDL CHOLESTEROL 42.9 MG/DL (40.0-60.0)
[2017-01-05] MEDS ORDERED: MIDAZOLAM HCL 2 MG/2 ML VIAL ONE (13:26)
[2017-01-05] MEDS ORDERED: HEPARIN-NS/PF INJ 500 ML ONE (13:26)
[2017-01-05] MEDS ORDERED: HEPARIN SODIUM - IV 10,000 UNITS/10 ML VIAL ONE (13:27)
[2017-01-05] MEDS ORDERED: IOHEXOL 350 MG/ML 50 ML BTL (for Cath Lab) OTHER ONE (13:33)
[2017-01-05] MEDS ORDERED: BACITRACIN OINT 0.9 GM PKT TOP ONE (14:30)
[2017-01-05] MEDS ORDERED: MISC INFORMATION XX ONE (14:30)
--- NOTE | 2017-01-05 14:32 | CATHPROC ---
[facility] HIS Report Study Information Study Number Admission Scheduled Start Study Start [id number] Jan 03 2017 11:11PM 01/05/2017 Jan 05 2017 1:31PM [place] Service Cardiac Catheterization Admit Source Facility Department Emergency department [facility] - Design Quality Engineer Physician and Clinical Staff Initial Nate Cannon [facility] Naheed Oconnell,RN [facility] Kenna Cox,BREANN Recorder Celestine Harrison RCIS(BS) Scrub Zana Mendez RCIS(BS) Procedures Performed Procedure Location (Site) Vessel Name Coronary Angiograms LCA Left Coronary Coronary Angiograms RCA Right Coronary L Heart Cath Equipment Time Second Operator Description Size Mfg Part Number Used/Scraped TRANSDUCER, TRUWAVE [id number] 13:58 MURPHY COX * Used W/STOCKCOCK *[id number] *[id number] *[id number] 13:58 [employer] INDUSTRIES PACK, CCL CUSTOM * Used *[id number] 13:58 [email or web address] SUPPORT, ARTERIAL ADULT [id number] Used [id number] 13:58 [employer] PACER PEN, SKIN DUAL W/ RULER * Used *[id number] BAND, RADIAL COMPRESSION TR [id number] 14:09 [employer] (Former[employer] MEDICAL 29CM Used LARGE 29 *[id number] SHEATH, FR6 RADIAL PRELUDE 13:58 Linguastat FR 6 [id number] Used EASE 11CM [id number] 13:58 Linguastat WIRE, EXCHANGE 260CM 3MMJ 260CM Used *[id number] 13:58 [employer] OMNIPAQUE, 350 MG, 150ML 150ML [id number] Used [id number] 13:58 [employer] MEDICAL BLANKET,WARM AIR CCL * Used *[id number] Equipment Model, Serial, Lot Number and Expiration Data Description Model Number Serial Number Lot Number Expiration Date BAND, RADIAL COMPRESSION TR [id number] 08-28-2019 LARGE 29 History: Allergies Allergy Reaction No Known Allergies History: Risk Factors Family History of Hypertension Dyslipidemia Previous [place] Previous Heart Failure Premature CAD No No No No No Prior Valve Prior PCI Prior CABG Surgery No No No Cerebrovascular Peripheral Artery Chronic Lung On Dialysis Diabetes Disease Disease Disease No No No No No History: Stress Tests Stress or Imaging Studies Performed Yes Standard Exercise Stress Test No Stress Echo No Stress Test SPECT Stress Test SPECT Result Stress Test SPECT Ischemia Risk/Extent Yes Positive High Stress Test CMR No Cardiac CTA Coronary Calcium Score No No History: Other Current Smoker Method Packs a Day Years Used Pack Years Yes Cigarettes 1 40 40 Labs Hgb (g/dl) Hct (%) WBC (l/cumm) Platelets (thousands) 11.60-17.00 35.00-51.00 4.00-11.00 150.00-450.00 14.0 41 8.3 196 Glucose (mg/dl) BUN (mg/dl) Creatinine (mg/dl) BUN:Creatinine (1:x) 74.00-106.00 7.00-18.00 0.50-1.30 10.00-20.00 99 17 1.1 15.5 Na (meq/l) K (meq/l) 136.00-145.00 3.50-5.10 141 4.9 Troponin I (ng/ml) 0.02-0.05 0.03 Medication Medication Total Dose (Bolus/Oral) Medication Total Dosage/Unit 1% XYLOCAINE 20 mL FENTANYL 50 mcg HEPARIN 2000 units RADIAL COCKTAIL 5 mL (Bolus) VERSED 1 mg Medications (Bolus/Oral) Medication Time Given Dosage/Unit Administered By Reason VERSED 01/05/2017 1:53:00 PM 1 mg Naheed Oconnell 1 mg VERSED given in lab by Naheed Oconnell RN in Left Wrist via Peripheral IV. Ordered by St jun Trujillo. FENTANYL 01/05/2017 1:53:00 PM 50 mcg Naheed Oconnell 50 mcg FENTANYL given in lab by Naheed Oconnell RN in Left Wrist via Peripheral IV. Ordered by Nate Trujillo. 1% XYLOCAINE 01/05/2017 2:00:56 PM 20 mL Patient arrived on 20 mL 1% XYLOCAINE via Subcutaneous. Ordered by Nate Trujillo. Ntg 200mcg Verapamil 2.5mg Heparin RADIAL COCKTAIL 01/05/2017 2:04:43 PM 5 mL (Bolus) Nate Trujillo 2000U 5 mL (Bolus) RADIAL COCKTAIL given via Radial. Using [Solution Name]. Reason: Ntg 200mcg. HEPARIN 01/05/2017 2:06:00 PM 2000 units Naheed Oconnell 2000 units HEPARIN given in lab by Naheed Oconnell RN in Left Wrist via Peripheral IV. Ordered by Nate Ferraro. Medication (Drip) Medication Time Given Dosage/Unit Concentration/Unit Diluent (ml) Solution IV Solutions 01/05/2017 1:42:29 PM 0 mL (IV) 500 NaCl .9 Patient arrived on IV Solutions in Left Wrist via Peripheral IV. Pump/Drip Flow = 20 ml/hr using NaCl .9. Ordered by Nate Trujillo. Initial Case Assessment Cardiovascular HR Rhythm NIBP Chest Pain 62 SR W TRIGEMINY 122/73 0 Edema Present Skin color Skin None Normal Warm Dry Circulatory - Right Pulses Dorsalis Pedis Femoral Radial 1 1 1 Scale (0,1,2,3,4,d) Circulatory - Left Pulses Dorsalis Pedis Femoral Radial 1 1 Scale (0,1,2,3,4,d) Circulatory - Lower Extremities Color Lower Right Color Lower Left Normal Normal Neurological State Oriented to time-place- Alert Moves all extremities person Respiration - General Respiration Rate SpO2 (%) (B/min) 14 97 Final Case Assessment Cardiovascular HR Rhythm NIBP Chest Pain 62 SR W TRIGEMINY 122/73 0 Edema Present Skin color Skin None Normal Warm Dry Circulatory - Right Pulses Dorsalis Pedis Femoral Radial 1 1 1 Scale (0,1,2,3,4,d) Circulatory - Left Pulses Dorsalis Pedis Femoral Radial 1 1 Scale (0,1,2,3,4,d) Circulatory - Lower Extremities Color Lower Right Color Lower Left Normal Normal Neurological State Oriented to time-place- Alert Moves all extremities person Respiration - General Respiration Rate SpO2 (%) (B/min) 14 97 Chronological Log Time Study Chronological Log 13:33:55 Patient arrived via Bed. 13:33:56 Patient Name, D.O.B, / Armband Verified By R.N. 13:33:56 Consent signed by the physician and the patient and verified by the Design Quality Engineer staff. 13:33:57 Pre-op and post- op instructions given; patient acknowledges understanding of instructions. 13:33:59 Verbal Stimulation=2 Physical Stimulation=2 Airway=2 Respiration=2 TOTAL=8. (0=absent, 1=li mited, 2=present) 13:34:10 Allens test performed on the right radial and ulnar artery. 13:34:13 Patient has been NPO for Less than 6Hrs. 13:34:13 Skin Breakdown- 13:34:16 Patient Warmer Placed on the Table. 13:42:28 A # 20 IV was noted in the Wrist (left). Grade = 0 Patient arrived on IV Solutions in Left Wrist via Peripheral IV. Pump/Drip Flow = 20 ml/hr usin g NaCl .9. Ordered by 13:42:29 Nate Trujillo. 13:42:30 History and physical on the chart or being dictated. Assessment: Initial Case, HR=62 BPM, Rhythm=SR W TRIGEMINY, ENOA=123/73 mmhg, Chest Pain=0, Johan ma=None, Color=Normal, Skin = Warm, Dry Right Pulses: Brent Ped=1, Femoral=1, Radial=1 Left Pulses: Brent Ped=1, Femoral=1 13:42:31 Lower Right Extremities: Color=Normal Lower Left Extremities: Color=Normal Neurological: State=Alert, Ox3, PORTER Respiration: Resp=14 B/min, SpO2=97 % 13:42:56 Disposable Defibrillator Pads Placed On Patient. Vitals capture started with the following parameters, Patient=Adult, Interval=5 min, Initial Pr piqsjq=092 mmHg, 13:43:40 Deflation Rate=5 mmHg, Cuff placed on Right Arm 13:44:19 HR=71 bpm, XORN=599/73 mmhg, SpO2=95.0 %, Resp=18 B/min, Pain=0, Ferdinand=10, Sweet=2 13:49:13 HR=68 bpm, ZLFH=034/83 mmhg, SpO2=96 %, Resp=18 B/min, Pain=0, Ferdinand=10, Sweet=2 13:49:34 MD arrived. 13:53:00 1 mg VERSED given in lab by Naheed Oconnell, RN in Left Wrist via Peripheral IV. Ordered by Nate Trujillo. 13:53:00 50 mcg FENTANYL given in lab by Naheed Oconnell, BREANN in Left Wrist via Peripheral IV. Ordere d by Nate Trujillo. 13:54:13 HR=79 bpm, BXGK=210/79 mmhg, Resp=14 B/min, Pain=0, Ferdinand=10, Sweet=2 13:56:00 Pressure channel 1 zeroed. 13:59:12 HR=64 bpm, JDIV=845/81 mmhg, SpO2=97 %, Resp=11 B/min, Pain=0, Ferdinand=10, Sweet=2 Time Out. Correct patient, correct procedure,correct physician, power injector not loaded with contrast with surgical 14:00:48 team present. Time Out Concurred by , individual staff in procedure 14:00:53 Case Start 14:00:56 Patient arrived on 20 mL 1% XYLOCAINE via Subcutaneous. Ordered by Nate Trujillo. 14:02:02 Access site was RIGHT Radial Artery. A SHEATH, FR6 RADIAL PRELUDE EASE 11CM FR 6 was advanced into the Radial (right) using the Perc utaneous 14:03:38 technique. 14:04:13 HR=57 bpm, OCCE=602/83 mmhg, Resp=15 B/min, Pain=0, Ferdinand=10, Sweet=2 14:04:43 5 mL (Bolus) RADIAL COCKTAIL given via Radial. Using [Solution Name]. Reason: Ntg 200mcg. A JR 5.0 INFINITI CATHETER FR 6 was advanced over a wire. OMNIPAQUE, 350 MG, 150ML 150ML was us ed for 14:04:50 injections. Recorded Pressure: LV, HR=75, Condition=Condition 1 14:05:24 (Left Ventricle) LV 115/16/26 Recorded Pressure: LV, Ao, HR=76, Condition=Condition 1 14:05:29 (Left Ventricle) LV 111/18/25, (Aorta) Ao 103/71/87 14:06:00 2000 units HEPARIN given in lab by Naheed Oconnell RN in Left Wrist via Peripheral IV. Ord ered by Nate Trujillo. 14:07:33 The RCA was injected and visualized at various angles. OMNIPAQUE, 350 MG, 150ML 150ML used . After removing the current catheter a JL 3.5 INFINITI CATHETER FR 6 was advanced over a WIRE, E XCHANGE 260CM 14:08:02 3MMJ 260CM. 14:08:15 The LCA was injected and visualized at various angles. OMNIPAQUE, 350 MG, 150ML 150ML used . 14:08:34 Catheter was removed 14:09:00 Case End 14:09:14 HR=56 bpm, AWKM=142/84 mmhg, SpO2=92.0 %, Resp=14 B/min, Pain=0, Ferdinand=10, Sweet=2 Assessment: Final Case, HR=62 BPM, Rhythm=SR W TRIGEMINY, WPYI=038/73 mmhg, Chest Pain=0, Edema =None, Color=Normal, Skin = Warm, Dry Right Pulses: Brent Ped=1, Femoral=1, Radial=1 Left Pulses: Brent Ped=1, Femoral=1 14:10:27 Lower Right Extremities: Color=Normal Lower Left Extremities: Color=Normal Neurological: State=Alert, Ox3, PORTER Respiration: Resp=14 B/min, SpO2=97 % Radial Compression Device Used. 13 mLs of air placed in BAND, RADIAL COMPRESSION TR LARGE 29 2 9CM. Affected 14:11:14 hand 97 % O2 saturation. 14:12:19 No case complications noted. 14:12:20 Cine recording checked. 14:21:56 Bedside Report will be given. 14:21:59 Contrast Scanned 14:22:02 Defibrillator and ground pads removed. Skin intact. 14:22:04 A Left Heart Cath was performed. 14:22:05 Patient moved to stretcher End Study - Contrast Media Used In Study Contrast Total Opened (mL) Total Used (mL) Total Wasted (mL) Omnipaque 40 40 0 End Study - Maximum Contrast Load Max Contrast Load (mL) 500.0 End Study - Radiation Exposure Fluoro Time (minutes) 0.9 End Study - Patient Disposition Complications Transferred To Telemetry Bed
[2017-01-05] MEDS ORDERED: NITROGLYCERIN INJ 5 ML ONE (14:36)
--- NOTE | 2017-01-05 15:01 | MA ---
cc: IGOR WALTER MD DATE 01/05/17 INDICATION Cardiomyopathy. PROCEDURE PERFORMED 1. Fluoroscopy with interpretation. 2. Coronary angiography. 3. Left heart catheterization. METHOD The risks, benefits and alternatives discussed with the patient. The patient understood and consented for the procedure. The patient brought to the catheterization lab and placed on the catheterization table. Right wrist was prepped and draped in sterile fashion. The right wrist was anesthetized with 2% lidocaine. Right radial artery is cannulated and a 6-Belizean 7 cm sheath was placed without difficulty. 200 micrograms ___ nitroglycerin and 2000 units of intravenous heparin was administered. LEFT HEART CATHETERIZATION 6-Belizean JR-5 catheter advanced across the aortic valve without difficulty. Intraoperative hemodynamics measured 111/__ mmHg. CORONARY ANGIOGRAPHY 1. Left main coronary is angiographically normal. 2. Left anterior descending coronary is a large caliber size, angiographically normal. 3. Left circumflex is a large caliber size, angiographically normal. 4. The right coronary is a dominant vessel. Giving rise to a posterior descending coronary. Right coronary is angiographically normal. CONCLUSION 1. Angiographically normal coronary arteries. 2. Normal left-sided filling pressures. PLAN Discussed the case with Dr. Morgan. He is going to see the patient in consultation for consideration of possible EP study given syncope and cardiomyopathy. MD RYDER Lauren/LAURY /2:22 PM /2:43 PM
[2017-01-05] MEDS: CARVEDILOL 3.125 MG TAB PO SCH (22:01)
--- NOTE | 2017-01-05 23:06 | MB ---
cc: ERAN GARCIA M.D. DATE OF CONSULTATION: 01/05/2017 REASON FOR CONSULTATION: Syncopal episode. HISTORY OF PRESENT ILLNESS: Mr. Guevara is a 56 year-old gentleman with cardiomyopathy, ejection fraction around 20%, admitted to the emergency room due to syncopal episode. Left heart catheterization by Dr. Trujillo indicated nonocclusive disease, severe left ventricular dysfunction. I was consulted for further evaluation and management. The chart was reviewed. The patient was evaluated. ALLERGIES None. SOCIAL HISTORY The patient smokes a pack to two packs of cigarettes a day. FAMILY HISTORY Noncontributory to his current medical condition. MEDICATIONS He is currently on: 1. Lovenox subcu. 2. Heparin. At home, the gentleman was only on alprazolam. REVIEW OF SYSTEMS The gentleman refers no chest pain, no chest discomfort, no shortness of breath, no fever. PHYSICAL EXAMINATION: Alert, fully oriented. VITAL SIGNS: Blood pressure 112/74. Pulse 89, respiratory rate around 18. LUNGS: Ventilated. CARDIOVASCULAR: S1-S2, regular, no gallop, no murmur. ABDOMEN: Soft, obese. No masses, no bruits. EXTREMITIES: No edema. EKG: Sinus rhythm, right axis, long first degree A-V block. intraventricular conduction delay, right bundle-branch block, recurrent PVCs. LABORATORY DATA Hemoglobin 14, white blood cell 8.3, potassium 4.2, creatinine 1.08, HDL 42, total cholesterol 166, troponin 0.03, D-dimer 0.29. ASSESSMENT AND RECOMMENDATIONS Mr. Guevara has congestive heart failure. He has an ejection fraction around 20%. He had multiple PVCs. He had syncopal episode. Tachyarrhythmia should be suspected as the primary cause. Apparently a defibrillatory vest was ordered by Dr. Trujillo. I am going to perform electrophysiology study to evaluate possible tachyarrhythmia. Even if ventricular tachyarrhythmia is not induced, he is suspicious of ventricular tachyarrhythmia as the main reason for the syncopal episode. The case discussed extensively with the patient and his family. I will keep him n.p.o. after midnight for the procedure in the morning. Beta-kennedy will be initiated as well as MOHAN inhibitor. MD AMANDA Partida/ALBERTO /7:55 PM /10:48 PM
[2017-01-06] VITALS (16 sets, daily range): BP systolic 95–115; BP diastolic 47–78; PULSE 60–95; RESP 14–20; TEMP 97.4–98.5; O2SAT 91–96
[2017-01-06 06:57] LABS: AUTOMATED NEUTROPHIL # 5.5 TH/MM3 (1.8-7.7); BASOPHIL % 0.4 % (0.0-2.0); EOSINOPHIL # 0.3 TH/MM3 (0-0.4); EOSINOPHIL % 3.3 % (0.0-4.0); HEMATOCRIT 38.8 % (39.0-51.0); HEMO FLAGS DIFF FINAL; MEAN CELL VOLUME 94.4 FL (80.0-100.0); MEAN CORPUSCULAR HEMOGLOBIN 32.4 PG (27.0-34.0); MEAN CORPUSCULAR HGB CONC 34.3 % (32.0-36.0); MONO % 7.3 % (0.0-8.0); PLATELET COUNT 170 TH/MM3 (150-450); RED BLOOD COUNT 4.11 MIL/MM3 (4.50-5.90); RED CELL DISTRIBUTION WIDTH 13.8 % (11.6-17.2); WHITE BLOOD COUNT 8.5 TH/MM3 (4.0-11.0)
[2017-01-06 07:29] LABS: POTASSIUM 4.1 MEQ/L (3.5-5.1)
--- NOTE | 2017-01-06 08:12 | PD.CARD.PN ---
Subjective Subjective Remarks denies any CV complaints Objective Vital Signs / I&O Vital Signs Date Time Temp Pulse Resp B/P Pulse Ox O2 Delivery O2 Flow Rate FiO2 01/06/17 06:00 72 01/06/17 05:00 60 01/06/17 04:00 97.5 63 14 105/70 91 01/06/17 04:00 70 01/06/17 03:00 68 01/06/17 02:00 68 01/06/17 01:00 68 01/06/17 00:00 98.5 79 14 105/64 92 01/06/17 00:00 77 01/05/17 23:00 76 01/05/17 22:00 90 01/05/17 21:00 86 01/05/17 20:00 97.7 95 14 118/78 95 01/05/17 20:00 103 01/05/17 19:45 99 Nasal Cannula 4.00 01/05/17 18:22 89 01/05/17 18:00 97.4 89 18 112/74 96 01/05/17 16:29 98 Room Air 01/05/17 12:00 97.8 81 18 105/72 98 01/05/17 08:27 97.8 82 16 102/73 98 I/O 01/05/17 01/05/17 01/05/17 01/06/17 01/06/17 01/06/17 07:00 15:00 23:00 07:00 15:00 23:00 Intake Total 240 ml Balance 240 ml Intake Oral 240 ml # Voids 3 Physical Exam GENERAL: Well-nourished, well-developed patient in no apparent distress. NECK: No JVD. No carotid bruit. CARDIOVASCULAR: Regular rate and rhythm. S1/S2 no murmur, rub, or gallop. RESPIRATORY: No accessory muscle use. Clear to auscultation. Breath sounds equal bilaterally. GASTROINTESTINAL: Abdomen soft, non-tender, nondistended. MUSCULOSKELETAL: Extremities without clubbing, cyanosis, or edema. Laboratory Laboratory Tests Test 01/06/17 05:35 White Blood Count 8.5 TH/MM3 Red Blood Count 4.11 MIL/MM3 Hemoglobin 13.3 GM/DL Hematocrit 38.8 % Mean Corpuscular Volume 94.4 FL Mean Corpuscular Hemoglobin 32.4 PG Mean Corpuscular Hemoglobin 34.3 % Concent Red Cell Distribution Width 13.8 % Platelet Count 170 TH/MM3 Mean Platelet Volume 9.2 FL Neutrophils (%) (Auto) 65.0 % Lymphocytes (%) (Auto) 24.0 % Monocytes (%) (Auto) 7.3 % Eosinophils (%) (Auto) 3.3 % Basophils (%) (Auto) 0.4 % Neutrophils # (Auto) 5.5 TH/MM3 Lymphocytes # (Auto) 2.0 TH/MM3 Monocytes # (Auto) 0.6 TH/MM3 Eosinophils # (Auto) 0.3 TH/MM3 Basophils # (Auto) 0.0 TH/MM3 CBC Comment DIFF FINAL Differential Comment Sodium Level 140 MEQ/L Potassium Level 4.1 MEQ/L Chloride Level 106 MEQ/L Carbon Dioxide Level 27.0 MEQ/L Anion Gap 7 MEQ/L Blood Urea Nitrogen 18 MG/DL Creatinine 1.07 MG/DL Estimat Glomerular Filtration 71 ML/MIN Rate Random Glucose 90 MG/DL Calcium Level 8.2 MG/DL Assessment and Plan Problem List: (1) Syncope (2) NICM (nonischemic cardiomyopathy) Assessment and Plan Pt with Life Vest now and is scheduled fo EP study. Further recommendation will depend on that outcome. Continue MOHAN-I and BB Cholesterol is well controlled Blood pressure is well controlled Clem Aranda Jan 06, 2017 08:12
[2017-01-06] MEDS: CARVEDILOL 3.125 MG TAB PO SCH ×2 (08:51→21:01)
[2017-01-06] MEDS: SODIUM CHLORIDE 0.9% FLUSH 10 ML FLUSH IV FLUSH SCH ×2 (08:51→21:03)
[2017-01-06] MEDS: RAMIPRIL 1.25 MG CAP PO SCH (08:51)
[2017-01-06] MEDS ORDERED: VANCOMYCIN 500 MG VIAL ONE (11:55)
[2017-01-06] MEDS ORDERED: ceFAZolin INJ 1,000 MG VIAL ONE (11:56)
[2017-01-06] MEDS ORDERED: LIDOCAINE HCL 2% 50 ML VIAL ONE (11:56)
[2017-01-06] MEDS ORDERED: VANCOMYCIN HCL 1000 MG VIAL ONE (11:56)
[2017-01-06] MEDS ORDERED: PROPOFOL 200 MG/20 ML AMP IV ONE (11:58)
[2017-01-06] MEDS ORDERED: ISOPROTERENOL HCL 1 MG/5 ML AMP ONE (12:37)
[2017-01-06] MEDS ORDERED: MIDAZOLAM HCL 2 MG/2 ML VIAL ONE (12:37)
[2017-01-06] MEDS ORDERED: KETAMINE HCL 500 MG/5 ML VIAL ONE (12:37)
--- NOTE | 2017-01-06 13:29 | HHI.PR ---
Subjective Remarks patient back from procedure- tolerated well Objective Vitals Vital Signs Date Time Temp Pulse Resp B/P Pulse Ox O2 Delivery O2 Flow Rate FiO2 01/06/17 11:00 74 01/06/17 10:19 74 01/06/17 08:00 97.4 71 18 95/47 95 01/06/17 07:00 73 01/06/17 06:00 72 01/06/17 05:00 60 01/06/17 04:00 97.5 63 14 105/70 91 01/06/17 04:00 70 01/06/17 03:00 68 01/06/17 02:00 68 01/06/17 01:00 68 01/06/17 00:00 98.5 79 14 105/64 92 01/06/17 00:00 77 01/05/17 23:00 76 01/05/17 22:00 90 01/05/17 21:00 86 01/05/17 20:00 97.7 95 14 118/78 95 01/05/17 20:00 103 01/05/17 19:45 99 Nasal Cannula 4.00 01/05/17 18:22 89 01/05/17 18:00 97.4 89 18 112/74 96 01/05/17 16:29 98 Room Air I/O 01/05/17 01/05/17 01/05/17 01/06/17 01/06/17 01/06/17 07:00 15:00 23:00 07:00 15:00 23:00 Intake Total 240 ml Balance 240 ml Intake Oral 240 ml # Voids 3 Result Diagram: 01/06/17 0535 01/06/17 0535 Imaging Last Impressions Myocardial Perfusion Scan Nuc Med 01/04/17 0000 Signed Impressions: Service Date/Time: Wednesday, January 04, 2017 12:25 - CONCLUSION: 1. Fixed defect along the inferior wall on the stress and rest images. 2. No evidence to suggest ischemic myocardial changes are seen on today's exam. 3. Diffuse global hypokinesis with an ejection fraction of 32%%. RISK CATEGORY: low Caesar Kaiser MD Carotid Artery Ultrasound 01/04/17 0000 Signed Impressions: Service Date/Time: Wednesday, January 04, 2017 11:21 - CONCLUSION: 1. Mild atherosclerotic plaquing at the origin of the left internal carotid artery. 2. Otherwise, unremarkable examination. No focal high grade or hemodynamically significant stenosis is demonstrated. Caesar Kaiser MD Chest X-Ray 01/03/17 0000 Signed Impressions: Service Date/Time: Tuesday, January 03, 2017 20:59 - CONCLUSION: Mild cardiomegaly Jorge Bucio MD Objective Remarks awake and alert, oriented x 3 anicteric lungs no rales or wheezes irregular rhythm abdomen soft, nontender extremities no edema Procedures 01/05- cardiac cath- normal coronaries 01/06- AICD A/P Problem List: (1) Syncope ICD Code: R55 Status: Acute Assessment and Plan 56-year-old male with no significant PMH, presents with palpitations, dizziness , and syncope Syncope: secondary to arrhythmia, telemetry with NSVT, Cardiomyopathy S/P AICD Reviewed: EKG showed first-degree AV block, RBBB, LAFB along with frequent PVCs - no prior EKGs available for comparison. Carotid ultrasound with no focal or hemodynamically significant stenosis. D-dimer wnl. ACS ruled out with negative serial cardiac enzymes x3. Non-orthostatic. Labs essentially wnl. - Nuclear stress test shows fixed defect inferior wall; no ischemic myocardial changes; diffuse global hypokinesis with EF 32% - Echocardiogram with EF 20-25% and mod MR, mod TR - continuous cardiac telemetry to monitor for arrhythmia Cardiomyopathy/Systolic CHF: S/P cath- normal coronaries S/P AICD 01/06 - Unable to start BB or ACEi secondary to low BP with episodes of hypotension - Check lipid profile, no diabetes with glucose < 100 - for AICD DVT prophylaxis- Lovenox 40 mg subq [id number] David Moore MD Jan 06, 2017 13:29
--- NOTE | 2017-01-06 13:34 | CATHPROC ---
591wed HIS Report Study Information Study Number Admission Scheduled Start Study Start [id number] Jan 03 2017 11:11PM 01/06/2017 Jan 06 2017 11:47AM [place] Service Cardiac Pacer/ICD Admit Source Facility Department Other [facility] - Residential Property Tax Appraiser Physician and Clinical Staff Initial Polina Christianson Fine Wire Drawer Bing Calvo,RT(R) TECH2 Other Anesthesia, PIECE JOBBER Recorder Charlene Avery,RN Recorder Emily Adler,BSRN Scrub Geri Mendez,PALM AND BACK FORGER TECH2 Equipment Time Flooring Professional Description Size Mfg Part Number Used/Scraped [id number] 12:06 [employer] PACK, CCL CUSTOM * Used *[id number] 12:06 [employer] PACER NGUYEN, LIMB * 2530 *[id number] Used [id number] 12:06 [employer] BLANKET,WARM AIR CCL * Used *[id number] 12:07 [employer] CATHE[employer], JSN, QUAD FR 5 Used *[id number] 12:07 [employer] CAT[employer], JSN, QUAD FR 5 Used *[id number] 12:08 [employer] CAT[employer], JSN, QUAD FR 5 Used *[id number] 12:08 [employer] CAT[employer]TER, JSN, QUAD FR 5 Used *[id number] 12:07 [employer] SHEATH, EPS, FR5 FAST CATH FR 5 Used *[id number] 12:07 [employer], EPS, FR5 FAST CATH FR 5 Used *[id number] 12:07 [employer], EPS, FR5 FAST CATH FR 5 Used *[id number] 12:07 [employer], EPS, FR6 FAST CATH FR 6 [id number] Used History: Allergies Allergy Reaction No Known Allergies NKDA History: Risk Factors Family History of Hypertension Dyslipidemia Previous GA Previous Heart Failure Premature CAD No No No No Yes Prior Valve Prior PCI Prior CABG Surgery No No No Cerebrovascular Peripheral Artery Chronic Lung On Dialysis Diabetes Disease Disease Disease No No No Yes No History: Symptoms/Diagnosis Selection Items Syncope History: CV Disease Selection Items Cardiomyopathy nonischemic History: Other Disease Selection Items CHF COPD Labs Hgb (g/dl) Hct (%) RBC (MIL/MM3) WBC (l/cumm) Platelets (thousands) 11.60-17.00 35.00-51.00 4.00-5.90 4.00-11.00 150.00-450.00 13.3 38.8 4.1 8.5 170 Glucose (mg/dl) BUN (mg/dl) Creatinine (mg/dl) BUN:Creatinine (1:x) 74.00-106.00 7.00-18.00 0.50-1.30 10.00-20.00 90 18 1.0 18 Na (meq/l) K (meq/l) Cl (meq/l) CO2 (mmol/L) Ca (mg/dl) 136.00-145.00 3.50-5.10 98.00-107.00 21.00-32.00 8.50-10.10 140 4.1 106 27 8.2 Medication Medication Total Dose (Bolus/Oral) Medication Total Dosage/Unit 1% XYLOCAINE 20 mL Medications (Bolus/Oral) Medication Time Given Dosage/Unit Administered By Reason 1% XYLOCAINE 01/06/2017 12:55:32 PM 20 mL Polina Morgan For pain 20 mL 1% XYLOCAINE given in lab by Polina Morgan in Left Groin via Subcutaneous. Ordered by [employer] Morgan. Reason: For pain. Medication (Drip) Medication Time Given Dosage/Unit Concentration/Unit Diluent (ml) Solution ISUPREL 01/06/2017 1:15:48 PM 4 mcg/min 1 mg 250 NaCl .9 4 mcg/min ISUPREL given in lab by SUSIE Drake in Left Wrist via Peripheral IV. Pump/Drip Flow = 60 ml/hr using NaCl .9 with a concentration of 1 mg in 250 ml. Ordered by Polina Morgan. Reason: As per physicians verbal order. IV Solutions 01/06/2017 12:01:55 PM 0 mL (IV) NaCl .9 IV Solutions given in lab by Charlene Avery RN in Left Wrist via Peripheral IV. Pump/Drip Flow = 5 0 ml/hr using NaCl .9. Ordered by Polina Morgan. Initial Case Assessment Cardiovascular HR NIBP Chest Pain 76 113/75 0 Edema Present Skin color Skin None Normal Warm Dry Neurological State Oriented to time-place- Alert Moves all extremities person Respiration - General Respiration Rate SpO2 (%) (B/min) 18 98 Chronological Log Time Study Chronological Log 11:58:43 Patient arrived via Bed. 11:58:45 Patient Name, D.O.B, / Armband Verified By R.N. 11:58:47 Consent signed by the physician and the patient and verified by the Residential Property Tax Appraiser staff. 12:00:10 Pre-op and post- op instructions given; patient acknowledges understanding of instruction s. 12:00:13 Verbal Stimulation=2 Physical Stimulation=2 Airway=2 Respiration=2 TOTAL=10. (0=absent, 1 =limited, 2=present) 12:00:30 Patient has been NPO for More than 6Hrs. 12:00:34 Skin Breakdown- none 12:00:44 Patient Warmer Placed on the Table. 12:00:48 Disposable Defibrillator Pads Placed On Patient. 12:00:51 Adrianne Prominences Protected 12:00:55 A # 20 IV was noted in the Wrist (left). Grade = ~GRADE~ IV Solutions given in lab by Charlene Avery RN in Left Wrist via Peripheral IV. Pump/Drip Flow = 50 ml/hr using NaCl 12:01:55 .9. Ordered by Polina Morgan. 12:01:56 IV right wrist non functioning . No infiltration or swelling at site. 12:02:00 Right groin prepped with 2% chlorhexidine, and with a 3 min. waiting time. 12:02:10 Left groin prepped with 2% chlorhexidine, and with a 3 min. waiting time. 12:02:17 History and physical on the chart or being dictated. 12:02:21 Table restraints applied according to hospital policy 12:02:26 Left Upper Chest Prepped Times Two. Assessment: Initial Case, HR=76 BPM, MNTS=743/75 mmhg, Chest Pain=0, Edema=None, Color=Normal, Skin = Warm, Dry 12:05:00 Neurological: State=Alert, Ox3, PORTER Respiration: Resp=18 B/min, SpO2=98 % 12:25:00 Anesthesia at bedside. Assumes care of patient. Mookie RICHARDS 12:40:18 Reference ECG taken 12:52:03 MD arrived. 12:54:02 Immediate Presedation assesment performed by physician. Time Out. Correct patient, procedure, procedure equipment, site and side verified with physicia n present. Time 12:54:04 concurred by MD, individual staff and PIECE JOBBER. Time Out #2 - Consents verified, patient in correct position, all results are labled and displa yed, safety precautions 12:54:43 taken, antibiotics administered. Time out concurred by MD, individual staff and PIECE JOBBER in procedu re 12:54:46 Case Start 20 mL 1% XYLOCAINE given in lab by Polina Morgan in Left Groin via Subcutaneous. Ordered by Polina Hunter. 12:55:32 Reason: For pain. 12:55:46 Vascular access was obtained in the Fem Vein (left). 12:55:50 Vascular access was obtained in the Fem Vein (left). 12:55:51 Vascular access was obtained in the Fem Vein (left). 12:55:52 Vascular access was obtained in the Fem Vein (left). 12:55:58 A SHEATH, EPS, FR5 FAST CATH FR 5 was advanced into the Fem Vein (left) using the Percutane ous technique. 12:56:11 A SHEATH, EPS, FR5 FAST CATH FR 5 was advanced into the Fem Vein (left) using the Percutane ous technique. 12:56:12 A SHEATH, EPS, FR5 FAST CATH FR 5 was advanced into the Fem Vein (left) using the Percutane ous technique. 12:56:15 A SHEATH, EPS, FR6 FAST CATH FR 6 was advanced into the Fem Vein (left) using the Percutane ous technique. A CATHETER, JSN, QUAD FR 5 was advanced vis Fem Vein (left) and placed in the HRA. Placement wa s visually 12:56:26 confirmed under fluoroscopy. A CATHETER, JSN, QUAD FR 5 was advanced vis Fem Vein (left) and placed in the HIS. Placement wa s visually 12:56:35 confirmed under fluoroscopy. A CATHETER, JSN, QUAD FR 5 was advanced vis Fem Vein (left) and placed in the RVA. Placement wa s visually 12:56:45 confirmed under fluoroscopy. A CATHETER, JSN, QUAD FR 5 was advanced vis Fem Vein (left) and placed in the CS. Placement was visually 12:56:56 confirmed under fluoroscopy. 12:57:12 EP study in progress. 13:05:33 EP Procedure was performed. 4 mcg/min ISUPREL given in lab by Anesthesia, PIECE JOBBER in Left Wrist via Peripheral IV. Pump/Drip F low = 60 ml/hr using 13:15:48 NaCl .9 with a concentration of 1 mg in 250 ml. Ordered by Polina Morgan. Reason: As per physic ians verbal order. 13:24:56 Isuprel gtt dcd 13:25:24 EP study completed. 13:27:24 Catheter(s) removed without difficulty 13:27:27 Sheaths removed; pressure applied to access site by Emily Mendez. Hemostasis achieved. 13:28:13 Sterile dressing applied to site 13:28:16 No case complications noted. 13:28:18 Cine recording checked. 13:28:21 Holding Area notified of successful intervention. 13:28:25 Bedside Report will be given. 13:28:27 Defibrillator and ground pads removed. Skin intact. 13:29:00 Right wrist IV removed. 13:30:00 Case End 13:33:52 Patient moved to stretcher and transported to [facility] in stable condition. End Study - Contrast Media Used In Study Contrast Total Opened (mL) Total Used (mL) Total Wasted (mL) Unspecified 0 0 0 End Study - Maximum Contrast Load Max Contrast Load (mL) 540.0 End Study - Radiation Exposure Fluoro Time (minutes) 0.8 End Study - Patient Disposition Complications Transferred To Interventional Outcome No Telemetry Bed successful
--- NOTE | 2017-01-06 15:58 | MA ---
cc: ERAN GARCIA M.D. DATE: 01/06/2017 PROCEDURES PERFORMED: Electrophysiology study, CS cannulation, repeat electrophysiology study, Isuprel infusion. INDICATIONS FOR THE PROCEDURE: Mr. Guevara is a 56-year-old gentleman with syncopal episode, cardiomyopathy, has a defibrillator that was ordered yesterday by Dr. Trujillo referred for electrophysiology study and possible device insertion. The risks, the nature and the benefits of the procedure were clearly stated to him and his family. The risks include pneumothorax, cardiac perforation, stroke, need for at bedtime and even . The patient understood and agreed to proceed. DESCRIPTION OF THE PROCEDURE IN DETAIL: After written informed consent was obtained, the patient was brought to the EP lab where he was prepped and draped in the usual sterile fashion. Conscious sedation was initiated and throughout the procedure by anesthesiologist. Once sedation verified, the right inguinal area was anesthetized with 2% Xylocaine. Using modified Seldinger technique, the right femoral vein was cannulated on four occasion and four guidewires were advanced. Over the wire, a 3.5 and a 6-Northern Irish Hemaquet were advanced. Then under fluoroscopic guidance, using a 5-[place] Hemaquet, a 4.5-Northern Irish Rolando curved quadripolar electrophysiology catheter advanced and placed along the His, upper right atrium, coronary sinus and right ventricular apex. Basic intervals were measured and they were all within normal limits. At this point atrial pacing protocol was performed atrial pacing protocol course of incremental atrial pacing as well as program stimulation with 110 cycle length and up to one extra stimuli delivered. No tachyarrhythmia was induced. Then ventricular pacing protocol was performed. There was VA conduction. Ventricular pacing protocol course of incremental ventricular pacing as well as program stimulation with 110 cycle length and up to three extra stimuli delivered. No tachyarrhythmia was induced. Isuprel infusion was initiated. Ventricular pacing protocol was repeated and again no tachyarrhythmia was induced. At that point procedure was complete. All catheters were removed. The patient is going to be transferred to the recovery room. Continue the defibrillatory vest. No incident report. The patient tolerated the procedure. Blood loss minimal. FINDINGS: I. ELECTROCARDIOGRAM: At baseline, the patient was in sinus electrocardiogram . II: BASIC INTERVAL: Base cycle length was around 680 milliseconds. AH was 90. HV was around 50 milliseconds. III. ATRIAL PACING PROTOCOL: Wenckebach of the node was around was 300. ERP of 600-100 milliseconds. No tachyarrhythmia was induced ventricular pacing protocol there was VA conduction. No tachyarrhythmia was induced. CONCLUSION: Negative electrophysiology study for supraventricular tachyarrhythmia. COMMENTS AND RECOMMENDATIONS: This is a gentleman with low ejection fraction and syncopal episodes, malignant arrhythmia is highly suspected but the patient has a defibrillatory vest that was placed by Dr. Trujillo and there is no ventricular tachycardia on the electrophysiology study. At this point, I advised him to continue the defibrillatory rest and initiate beta kennedy and MOHAN inhibitor and repeat the echocardiogram in three months. The patient is going to be discharged home whenever it is okay with the managing team. MD AMANDA Partida/RAIMUNDO /2:30 PM /3:30 PM
[2017-01-07] VITALS (11 sets, daily range): BP systolic 82–122; BP diastolic 51–77; PULSE 44–96; RESP 18–20; TEMP 98.2–98.6; O2SAT 94–97
--- NOTE | 2017-01-07 08:07 | PD.CARD.PN ---
Subjective Subjective Remarks feeling well. No chest pain, SOB or palpitations. No lightheadedness. Objective Medications Current Medications Medications (Trade) Dose Ordered Sig/Mohan Route Start Time Stop Time Status Last Admin (NS Flush) 2 ml UNSCH PRN IV FLUSH 01/03/17 23:15 (NS Flush) 2 ml BID IV FLUSH 01/04/17 09:00 01/06/17 21:03 (Narcan Inj) 0.4 mg UNSCH PRN IV 01/03/17 23:15 (Coreg) 3.125 mg Q12HR PO 01/05/17 21:00 01/06/17 21:01 (Altace) 1.25 mg DAILY PO 01/06/17 09:00 01/06/17 08:51 Vital Signs / I&O Vital Signs Date Time Temp Pulse Resp B/P Pulse Ox O2 Delivery O2 Flow Rate FiO2 01/07/17 05:10 72 01/07/17 04:00 98.4 72 20 84/57 94 01/07/17 04:00 72 01/07/17 02:00 72 01/07/17 00:00 98.2 96 20 82/51 95 01/06/17 20:00 98.0 90 20 115/77 94 01/06/17 20:00 98.0 90 20 115/77 94 01/06/17 18:04 95 01/06/17 17:00 74 01/06/17 16:00 62 01/06/17 16:00 98.3 70 18 109/78 96 01/06/17 15:00 69 01/06/17 15:00 77 01/06/17 11:00 74 01/06/17 10:19 74 I/O 01/06/17 01/06/17 01/06/17 01/07/17 01/07/17 01/07/17 06:59 14:59 22:59 06:59 14:59 22:59 Intake Total 240 ml 610 ml 420 ml Output Total 450 ml 500 ml Balance 240 ml 160 ml -80 ml Intake Oral 240 ml 260 ml 420 ml IV Total 350 ml Output Urine Total 450 ml 500 ml # Voids 3 Physical Exam EYES: Pupils equal and round. No scleral icterus. ENT: No nasal bleeding or discharge. Mucous membranes pink and moist. NECK: Trachea midline. No JVD. CARDIOVASCULAR: Regular rate and rhythm. systolic murmur RESPIRATORY: No accessory muscle use. Clear to auscultation. Breath sounds equal bilaterally. GASTROINTESTINAL: Abdomen soft, non-tender, nondistended. Hepatic and splenic margins not palpable. MUSCULOSKELETAL: Extremities without clubbing, cyanosis, or edema. No obvious deformities. NEUROLOGICAL: Awake and alert. No obvious cranial nerve deficits. Normal speech. PSYCHIATRIC: Appropriate mood and affect; insight and judgment normal. Assessment and Plan Problem List: (1) Syncope (2) NICM (nonischemic cardiomyopathy) Assessment and Plan 56 yo WM with no prior cardiac history admitted for syncope found to have cardiomyopathy, no obstructive CAD seen on cardiac catheterization, neg EPS study. cardiomyopathy- non-ischemic, EF 20-25%, wearing LifeVest. EPS study yesterday negative. he has been initiated on ACEi and bb; SBP low overnight but improving , patient feeling well. Will need repeat echo in 3 months, consideration for ICD. Arianna Tapia Jan 07, 2017 08:07
[2017-01-07] MEDS: CARVEDILOL 3.125 MG TAB PO SCH (08:59)
[2017-01-07] MEDS: RAMIPRIL 1.25 MG CAP PO SCH (08:59)
[2017-01-07] MEDS: SODIUM CHLORIDE 0.9% FLUSH 10 ML FLUSH IV FLUSH SCH (09:01)
--- NOTE | 2017-01-07 12:56 | HHI.PR ---
Subjective Remarks doing very well, up and ambulating no dizziness Objective Vitals Vital Signs Date Time Temp Pulse Resp B/P Pulse Ox O2 Delivery O2 Flow Rate FiO2 01/07/17 11:19 98.6 69 18 122/77 97 01/07/17 11:11 69 01/07/17 09:00 44 01/07/17 08:00 80 01/07/17 07:00 80 01/07/17 07:00 98.3 62 18 101/66 97 01/07/17 05:10 72 01/07/17 04:00 98.4 72 20 84/57 94 01/07/17 04:00 72 01/07/17 02:00 72 01/07/17 00:00 98.2 96 20 82/51 95 01/06/17 20:00 98.0 90 20 115/77 94 01/06/17 20:00 98.0 90 20 115/77 94 01/06/17 18:04 95 01/06/17 17:00 74 01/06/17 16:00 62 01/06/17 16:00 98.3 70 18 109/78 96 01/06/17 15:00 69 01/06/17 15:00 77 I/O 01/06/17 01/06/17 01/06/17 01/07/17 01/07/17 01/07/17 07:00 15:00 23:00 07:00 15:00 23:00 Intake Total 240 ml 610 ml 420 ml Output Total 450 ml 500 ml Balance 240 ml 160 ml -80 ml Intake Oral 240 ml 260 ml 420 ml IV Total 350 ml Output Urine Total 450 ml 500 ml # Voids 3 Result Diagram: 01/06/17 0535 01/06/17 0535 Imaging Last Impressions Myocardial Perfusion Scan Nuc Med 01/04/17 0000 Signed Impressions: Service Date/Time: Wednesday, January 04, 2017 12:25 - CONCLUSION: 1. Fixed defect along the inferior wall on the stress and rest images. 2. No evidence to suggest ischemic myocardial changes are seen on today's exam. 3. Diffuse global hypokinesis with an ejection fraction of 32%%. RISK CATEGORY: low Caesar Kaiser MD Carotid Artery Ultrasound 01/04/17 0000 Signed Impressions: Service Date/Time: Wednesday, January 04, 2017 11:21 - CONCLUSION: 1. Mild atherosclerotic plaquing at the origin of the left internal carotid artery. 2. Otherwise, unremarkable examination. No focal high grade or hemodynamically significant stenosis is demonstrated. Caesar Kaiser MD Chest X-Ray 01/03/17 0000 Signed Impressions: Service Date/Time: Tuesday, January 03, 2017 20:59 - CONCLUSION: Mild cardiomegaly Jorge Bucio MD Objective Remarks awake and alert, oriented x 3 anicteric lungs no rales or wheezes irregular rhythm abdomen soft, nontender extremities no edema Procedures 01/05- cardiac cath- normal coronaries 01/06- AICD- EPs study negative A/P Problem List: (1) Syncope ICD Code: R55 Status: Acute Assessment and Plan 56-year-old male with no significant PMH, presents with palpitations, dizziness , and syncope Syncope: secondary to arrhythmia, telemetry with NSVT, Cardiomyopathy S/P AICD Reviewed: EKG showed first-degree AV block, RBBB, LAFB along with frequent PVCs - no prior EKGs available for comparison. Carotid ultrasound with no focal or hemodynamically significant stenosis. D-dimer wnl. ACS ruled out with negative serial cardiac enzymes x3. Non-orthostatic. Labs essentially wnl. - Nuclear stress test shows fixed defect inferior wall; no ischemic myocardial changes; diffuse global hypokinesis with EF 32% - Echocardiogram with EF 20-25% and mod MR, mod TR - continuous cardiac telemetry to monitor for arrhythmia Cardiomyopathy/Systolic CHF: S/P cath- normal coronaries S/P AICD 01/06 continue on coreg 3.125 mg po bid and Ramipril 1.25 mg po daily -life vest in place - repeat Echo as OP in 3 months DChome today FF up with cardiology as OP CM to arrange for home health care nursing visits David Moore MD Jan 07, 2017 12:56
[2017-01-07] MEDS ORDERED: CARV3.125 PO (13:01)
[2017-01-07] MEDS ORDERED: ALTA1.256 PO (13:01)
--- NOTE | 2017-01-07 13:02 | HHI.FF ---
Face to Face Verification Diagnosis: (1) NICM (nonischemic cardiomyopathy) Home Health Nursing Order: Medical education Signs/symptoms of disease process CHF education Nursing assessment with vital signs I have seen patient Zain Guevara on 01/07/17. My clinical findings support the need for the requested home health care services because: Ltd mobility - disease progression I certify that my clinical findings support that this patient is homebound because: Poor cardiac reserve David Moore MD Jan 07, 2017 13:02
== END 2017-01-07 13:33 | disposition home or self-care (01) | DRG 274 ==
LOC: NEPD 15:52 → NEDA 23:11 → NEPFCDU 01-04 00:46 → HCIS 01-05 14:05 → OBSVTOIN 01-06 11:05
PROVIDERS: ADMIT Internal Medicine; ATTEND Internal Medicine
PROC: 4A023N7 Measurement of Cardiac Sampling and Pressure, Left Heart, Percutaneous Approach (ICD-10-PCS; 2017-01-05)
PROC: B2111ZZ Fluoroscopy of Multiple Coronary Arteries using Low Osmolar Contrast (ICD-10-PCS; 2017-01-05)
PROC: 4A0234Z Measurement of Cardiac Electrical Activity, Percutaneous Approach (ICD-10-PCS; 2017-01-06)
PROC: 4A023FZ Measurement of Cardiac Rhythm, Percutaneous Approach (ICD-10-PCS; principal; 2017-01-06 12:00)
DX: I47.2 Ventricular tachycardia (principal); I42.9 Cardiomyopathy, unspecified; I50.20 Unspecified systolic (congestive) heart failure; I45.2 Bifascicular block; I44.0 Atrioventricular block, first degree; R55 Syncope and collapse; F17.210 Nicotine dependence, cigarettes, uncomplicated; F41.0 Panic disorder [episodic paroxysmal anxiety]; F41.9 Anxiety disorder, unspecified
CPT/HCPCS: 71010; 78452; 80048; 80053; 80061; 82550; 83735; 84443; 84484; 85025; 85379; 93005; 93017; 93306; 93454; 93620; 93623; 93880; 96360; 96361; 96372; A9502; C1730; C1769; C1893; G0378; J0690; J1644; J1650; J2250; J2785; J3010; J3370; J7030; Q9967

== ENCOUNTER 2017-01-10 22:58 | Observation (INO) | payer BC ==
[~2017-01-10] VITALS: Ht 182.9 cm; Wt 85.6 kg
[~2017-01-10 22:58] MED LIST changes: +ALPR0.25 PO; +ALTA1.256 PO; +CARV3.125 PO; +DEFIB EXTERNAL; -LORT5TAB PO; -PHEN12.5 PO; -TAMS0.4C67 PO
[2017-01-10 23:00] VITALS: BP 131/64; PULSE 112; RESP 17; TEMP 97.8; O2SAT 97
[2017-01-10] MEDS ORDERED: SODIUM CHLORIDE 0.9% FLUSH 10 ML FLUSH IVF PRN (23:30)
[2017-01-10] MEDS ORDERED: ASPIRIN 81 MG CHEW TAB PO ONE (23:30)
[2017-01-10] MEDS ORDERED: SODIUM CHLORID 0.9% 500 ML INJ 500 ML IV ONE (23:30)
[2017-01-10 23:32] VITALS: RESP 18
[2017-01-10 23:52] LABS: BASOPHIL # 0.1 TH/MM3 (0-0.2); BASOPHIL % 0.7 % (0.0-2.0); EOSINOPHIL # 0.4 TH/MM3 (0-0.4); EOSINOPHIL % 3.4 % (0.0-4.0); HEMATOCRIT 45.2 % (39.0-51.0); HEMO FLAGS DIFF FINAL; LYMPH % 20.7 % (9.0-44.0); LYMPHOCYTE # 2.2 TH/MM3 (1.0-4.8); MEAN CELL VOLUME 94.1 FL (80.0-100.0); MEAN CORPUSCULAR HEMOGLOBIN 31.5 PG (27.0-34.0); MEAN CORPUSCULAR HGB CONC 33.5 % (32.0-36.0); MONO % 8.1 % (0.0-8.0); NEUT % 67.1 % (16.0-70.0); PLATELET COUNT 228 TH/MM3 (150-450); RED BLOOD COUNT 4.81 MIL/MM3 (4.50-5.90); RED CELL DISTRIBUTION WIDTH 13.3 % (11.6-17.2); WHITE BLOOD COUNT 10.5 TH/MM3 (4.0-11.0)
--- NOTE | 2017-01-10 23:54 | PD ---
HPI Chief Complaint: Cardiac Complaint Time Seen by Provider: 23:04 Travel History International Travel<30 days: No Contact w/Intl Traveler<30days: No Traveled to known affect area: No History of Present Illness HPI The patient is a 56 year old male who presents to the [facility] emergency department with a history of reportedly having his life vest go off this afternoon when he was attempting to wash his dog and the dog ran out of the shower. The patient reports that he was just discharged on Tuesday after being diagnosed with a nonischemic cardiomyopathy with episodes of nonsustained V. tach. The patient underwent EPS studies as well as a cardiac catheterization. The patient was noted to have an ejection fraction that was 20-25%. The EPS study was reportedly negative. The patient was started on Ramipril and Coreg. When he was discharged she was able to continue on the Coreg, however he was not able to fill the prescription for the ramipril up until today. The patient reports that after the LifeVest went off he had no chest pain or shortness of breath. He reports that he felt well. He ate and drank. He reports that he also checked his pulse. He noted his pulse was elevated in the 1 teens. He repeatedly checked it throughout the evening and noted that it was sustained up into the 130s. The patient then decided to call ambulance services. The patient was last admitted to the hospital related to palpitations and dizziness with a syncopal event thus prompting a workup and identification of the nonischemic cardiomyopathy, right bundle branch block with a left anterior fascicular block and frequent PVCs. The patient arrives in atrial fibrillation with RVR, heart rate in the 1 teens. He reports that he is taking low-dose aspirin daily. The patient did take his nighttime Coreg. On review of systems , the patient denies any recent fevers, cough, congestion, neck pain, chest pain , shortness of breath, abdominal pain, vomiting, diarrhea, urinary symptoms, or neurologic symptoms. [facility], [facility] Past Medical History Narrative Medical The patient's past medical history is significant for nonischemic cardiomyopathy , history of colon polyps, history of nephrolithiasis, history of anxiety and depression, hyperlipidemia, right bundle branch block with a left anterior fascicular block with frequent PVCs. Hx Anticoagulant Therapy: Yes (ASPIRIN 81MG) Blood Disorders: No Anxiety: Yes Depression: No Heart Rhythm Problems: No Cancer: No Cardiovascular Problems: Yes High Cholesterol: No Chest Pain: No Congestive Heart Failure: No Diminished Hearing: No Gastrointestinal Disorders: No Genitourinary: No Hypertension: No Immune Disorder: No Implanted Vascular Access Dvce: No Kidney Stones: Yes (KIDNEY STONES REMOVED) Musculoskeletal: No Neurologic: No Psychiatric: Yes Reproductive: No Respiratory: No Immunizations Current: Yes Sleep Apnea: No Tetanus Vaccination: > 5 Years Influenza Vaccination: Yes Past Surgical History Narrative Surgical The patient's past surgical history is significant for cardiac catheterization recently without any stent placement, EPS study recently that was reportedly negative, history of hernia repair, tympanostomy tubes as a child, appendectomy , colonoscopy. Appendectomy: Yes Tonsillectomy: Yes Tympanostomy Tube: Yes Other Surgery: No (APPENDECTOMY) Social History Alcohol Use: Yes (2-3 A drinks usually on Tuesday and Tuesday. No alcohol over the last week) Tobacco Use: Yes (quit smoking approximately a week ago when he was admitted. He is using Nicorette) Substance Use: No Allergies-Medications (Allergen,Severity, Reaction): Coded Allergies: No Known Allergies (Verified , 01/10/17) Reported Meds & Prescriptions Reported Meds & Active Scripts Active Altace (Ramipril) 1.25 Mg Cap 1.25 Mg PO DAILY 30 Days Coreg (Carvedilol) 3.125 Mg Tab 3.125 Mg PO Q12HR 30 Days Defibrillator Jacket (Device) 1 Ea Device 1 Ea EXTERNAL ONCE Energy = 150 Joules; VT Threshold = 150 BPM; VF Threshold = 200 BPM Use up to 90 days only Reported Alprazolam 0.25 Mg Tab 0 PO Q4H PRN [Vitamins] DAILY Review of Systems Except as stated in HPI: all other systems reviewed are Neg General / Constitutional: No: Fever Eyes: No: Visual changes HENT: No: Headaches Cardiovascular: Positive: Palpitations, Tachycardia, No: Chest Pain or Discomfort Respiratory: No: Shortness of Breath Gastrointestinal: No: Abdominal Pain Genitourinary: No: Dysuria Musculoskeletal: No: Pain Skin: No Rash Neurologic: No: Weakness Psychiatric: No: Depression Endocrine: No: Polydipsia Hematologic/Lymphatic: No: Easy Bruising Physical Exam Narrative General: The patient is a well-developed well-nourished male in no acute distress. Head and Neck exam: Head is normocephalic atraumatic. Eyes: EOMI, pupils are equal round and reactive to light. Nose: Midline septum with pink mucous membranes Mouth: Dentition unremarkable. Moist mucus membranes. Posterior oropharynx is not erythematous. No tonsillar hypertrophy. Uvula midline. Airway patent. Neck: No palpable lymphadenopathy. No nuchal rigidity. No thyromegaly. Cardiovascular: Irregularly irregular with a rate in the low 100s without murmurs, gallops, or rubs. Lungs: Clear to auscultation bilaterally. No wheezes, rhonchi, or rales. Abdomen: Soft, without tenderness to palpation in all 4 quadrants of the abdomen. No guarding, rebound, or rigidity. Normal bowel sounds are audible. No tenderness on palpation of McBurney's point. Extremities: No clubbing, cyanosis, or edema. 2+ pulses in all 4 extremities. No calf tenderness on palpation. Back: No costovertebral angle tenderness to palpation. Neurologic Exam: Grossly nonfocal. Skin Exam: No rash noted. Intact skin that is warm and dry. Data Data Last Documented VS Vital Signs Date Time Temp Pulse Resp B/P Pulse Ox O2 Delivery O2 Flow Rate FiO2 01/11/17 00:51 87 18 115/68 99 Nasal Cannula 2 01/10/17 23:00 97.8 Orders Electrocardiogram (01/10/17 23:30) Basic Metabolic Panel (Bmp) (01/10/17 23:30) B-Type Natriuretic Peptide (01/10/17 23:30) Ckmb (Isoenzyme) Profile (01/10/17 23:30) Complete Blood Count With Diff (01/10/17 23:30) Magnesium (Mg) (01/10/17 23:30) Prothrombin Time / Inr (Pt) (01/10/17 23:30) Act Partial Throm Time (Ptt) (01/10/17 23:30) Troponin I (01/10/17 23:30) Chest, Single Ap (01/10/17 23:30) Ecg Monitoring (01/10/17 23:30) Bilateral Bp Monitoring (01/10/17 23:30) Iv Access Insert/Monitor (01/10/17 23:30) Oximetry (01/10/17 23:30) Oxygen Administration (01/10/17 23:30) Aspirin Chew (Aspirin Chew) (01/10/17 23:30) Sodium Chloride 0.9% Flush (Ns Flush) (01/10/17 23:30) Sodium Chlorid 0.9% 500 Ml Inj (Ns 500 M (01/10/17 23:30) Place In Observation (01/11/17 ) Vital Signs (Adult) Q4H (01/11/17 01:09) Activity Oob With Assistance (01/11/17 01:09) Middle [employer] Counselor / Telemetry .CONTINUOUS (01/11/17 01:09) Diet Heart Healthy (01/11/17 Breakfast) Sodium Chloride 0.9% Flush (Ns Flush) (01/11/17 01:15) Sodium Chloride 0.9% Flush (Ns Flush) (01/11/17 09:00) Creatine Kinase (Cpk) (01/11/17 05:40) Creatine Kinase (Cpk) (01/11/17 11:40) Troponin I (01/11/17 05:40) Troponin I (01/11/17 11:40) Electrocardiogram (01/11/17 05:40) Electrocardiogram (01/11/17 11:40) Case Management Consult (01/11/17 01:09) Naloxone Inj (Narcan Inj) (01/11/17 01:15) Enoxaparin Inj (Lovenox Inj) (01/11/17 09:00) Admit Order (Ed Use Only) (01/11/17 01:18) Labs Laboratory Tests Test 01/10/17 23:40 White Blood Count 10.5 TH/MM3 Red Blood Count 4.81 MIL/MM3 Hemoglobin 15.2 GM/DL Hematocrit 45.2 % Mean Corpuscular Volume 94.1 FL Mean Corpuscular Hemoglobin 31.5 PG Mean Corpuscular Hemoglobin 33.5 % Concent Red Cell Distribution Width 13.3 % Platelet Count 228 TH/MM3 Mean Platelet Volume 8.5 FL Neutrophils (%) (Auto) 67.1 % Lymphocytes (%) (Auto) 20.7 % Monocytes (%) (Auto) 8.1 % Eosinophils (%) (Auto) 3.4 % Basophils (%) (Auto) 0.7 % Neutrophils # (Auto) 7.0 TH/MM3 Lymphocytes # (Auto) 2.2 TH/MM3 Monocytes # (Auto) 0.8 TH/MM3 Eosinophils # (Auto) 0.4 TH/MM3 Basophils # (Auto) 0.1 TH/MM3 CBC Comment DIFF FINAL Differential Comment Prothrombin Time 11.1 SEC Prothromb Time International 1.0 RATIO Ratio Activated Partial 27.8 SEC Thromboplast Time Sodium Level 140 MEQ/L Potassium Level 4.5 MEQ/L Chloride Level 107 MEQ/L Carbon Dioxide Level 25.1 MEQ/L Anion Gap 8 MEQ/L Blood Urea Nitrogen 26 MG/DL Creatinine 1.29 MG/DL Estimat Glomerular Filtration 57 ML/MIN Rate Random Glucose 95 MG/DL Calcium Level 8.2 MG/DL Magnesium Level 2.2 MG/DL Total Creatine Kinase 62 U/L Troponin I 0.02 NG/ML B-Type Natriuretic Peptide 199 PG/ML MDM Medical Decision Making Medical Screen Exam Complete: Yes Emergency Medical Condition: Yes Medical Record Reviewed: Yes Interpretation(s) Last Impressions Chest X-Ray 01/10/17 2330 Signed Impressions: Service Date/Time: Tuesday, January 10, 2017 23:56 - CONCLUSION: No acute findings. Cardiomegaly with. Jose Angel Alcazar MD Differential Diagnosis New-onset atrial fibrillation with RVR, versus SVT, versus other cardiac arrhythmia Narrative Course During the course of the patients emergency department visit, the patients history, examination, and differential diagnosis were reviewed with the patient. The patient had IV access obtained and blood work sent for analysis. The patient was placed on a instructor flying with oximetry and blood pressure monitoring. An ECG was done on arrival. The patient's ECG reveals atrial fibrillation with RVR, heart rate of 103, right bundle branch noted with a left posterior fascicular block which the patient does have a history of from prior notes in our electronic medical record. The patient has no acute ST segment elevation. QRS duration is 166 ms, QTC 447 ms. The patient was initially provided aspirin 243 mg by mouth 1, as he reports that he did take low-dose aspirin earlier today. The patients laboratory studies were reviewed and remarkable for a white count of 10.5, hemoglobin 15.2, platelets 228 with 8.1 monocytes. Basic metabolic profile is remarkable for a BUN of 26, GFR 57, calcium 8.2, CPK 62, troponin I 0.02, BNP is 199, PT 11.1, PTT 27.8 Radiology studies were reviewed and remarkable for a chest x-ray that shows no acute cardiopulmonary disease, cardiomegaly is noted which is stable. The patients results were discussed with the patient, including the plan of care. I explained that further testing and/ or monitoring is indicated based on the patients history, examination, and/ or laboratory findings. Therefore, I recommended admission for additional evaluation. The patient expressed understanding and was agreeable with this plan. The patient was admitted to the hospital in stable condition and [facility] Physician Communication Physician Communication The patient's case was discussed with Dr. Ashford who did agree to admit the patient for further evaluation and treatment at this time. Diagnosis Primary Impression: Atrial fibrillation with RVR Admitting Information Admitting Physician Requests: Admit Roxie Bautista MD Jan 10, 2017 23:54
[2017-01-11] VITALS (10 sets, daily range): BP systolic 94–130; BP diastolic 59–84; PULSE 65–94; RESP 16–20; TEMP 97.4–97.7; O2SAT 95–99
[2017-01-11 00:11] LABS: APTT (PATIENT) 27.8 SEC (24.3-30.1); PROTHROMBIN TIME - PATIENT 11.1 SEC (9.8-11.6)
--- NOTE | 2017-01-11 00:25 | RADRPT ---
EXAM DATE/TIME: 01/10/2017 23:56 [facility] COMPARISON: CHEST SINGLE AP, January 03, 2017, 20:59. INDICATIONS : Chest pain. MEDICAL HISTORY : None. SURGICAL HISTORY : Appendectomy. ENCOUNTER: Initial ACUITY: 1 day PAIN SCORE: 6/10 LOCATION: Bilateral chest FINDINGS: The heart is enlarged, similar to prior exam. The central bronchopulmonary markings well delineated. Mild elevation left hemidiaphragm, stable. The lungs are symmetrically aerated and clear. No infi ltrate seen. CONCLUSION: No acute findings. Cardiomegaly with. Jose Angel Alcazar MD on January 11, 2017 at 0:22 Board Certified Radiologist. This report was verified electronically.
[2017-01-11 00:46] LABS: BICARBONATE 25.1 MEQ/L (21.0-32.0); MAGNESIUM 2.2 MG/DL (1.5-2.5); POTASSIUM 4.5 MEQ/L (3.5-5.1)
[2017-01-11] MEDS ORDERED: NALOXONE HCL 0.4 MG/ML AMP IV PRN (01:15)
[2017-01-11] MEDS ORDERED: SODIUM CHLORIDE 0.9% FLUSH 10 ML FLUSH IV FLUSH PRN (01:15)
--- NOTE | 2017-01-11 04:36 | HHI.HP ---
HPI Service [facility] Primary [facility] Physician No Primary Care Physician Admission Diagnosis New onset afib with RVR Diagnoses: Chief Complaint: heart palpitations Travel History International Travel<30 Days: No Contact w/Intl Traveler <30 Da: No Traveled to Known Affected Are: No History of Present Illness Written by KINGA Foster acting as scribe for [Dejon] on 01/11/17 at 04: 33. 56 y/o male with a history of CHF and nephrolithiasis presented to the ED via EVAC because he was wearing his life vest and it fired. He states he was washing his dog when the life vest fired, but no shock delivered. He states he checked his blood pressure and it was 140/115 and he had palpitations and HR was in the 130s. Patient was recently discharged 01/07/2017 with the life vest and was going to be followed out patient with cardiology. Dr. Morgan wanted to medically manage the patient and recheck echo in 3 months. Denies any chest pain , sob, bloody or black stools, nausea or vomiting. Review of Systems Except as stated in HPI: all other systems reviewed are Neg Past Family Social History Past Medical History Colon polyps Nephrolithiasis Past Surgical History Hernia repair as child Tympanostomy tubes as a child Appendectomy Colonoscopy 6 months ago Reported Medications Reported Meds & Active Scripts Active Altace (Ramipril) 1.25 Mg Cap 1.25 Mg PO DAILY 30 Days Coreg (Carvedilol) 3.125 Mg Tab 3.125 Mg PO Q12HR 30 Days Defibrillator Jacket (Device) 1 Ea Device 1 Ea EXTERNAL ONCE Energy = 150 Joules; VT Threshold = 150 BPM; VF Threshold = 200 BPM Use up to 90 days only Reported Alprazolam 0.25 Mg Tab 0 PO Q4H PRN [Vitamins] DAILY Allergies: Coded Allergies: No Known Allergies (Verified , 01/10/17) Active Ordered Medications Current Medications Medications (Trade) Dose Ordered Sig/Mohan Route Start Time Stop Time Status Last Admin (NS Flush) 2 ml UNSCH PRN IVF 01/10/17 23:30 (NS Flush) 2 ml UNSCH PRN IV FLUSH 01/11/17 01:15 (NS Flush) 2 ml BID IV FLUSH 01/11/17 09:00 (Narcan Inj) 0.4 mg UNSCH PRN IV 01/11/17 01:15 (Lovenox Inj) 100 mg Q12HR SQ 01/11/17 09:00 Family History Mother with atrial fibrillation and lung problems (had only one lung) Brother with lactose intolerance Social History Tobacco: smokes cigarettes 1 to 2 PPD Alcohol: drinks a couple of mixed drinks mostly on weekends Illicit Drugs: denies IVD use, denies cocaine Originally from [place] Physical Exam Vital Signs Vital Signs Date Time Temp Pulse Resp B/P Pulse Ox O2 Delivery O2 Flow Rate FiO2 01/11/17 04:04 68 16 130/84 99 Nasal Cannula 2 01/11/17 02:07 79 18 122/64 99 Nasal Cannula 2 01/11/17 00:51 87 18 115/68 99 Nasal Cannula 2 01/10/17 23:32 99 Nasal Cannula 2 01/10/17 23:32 18 01/10/17 23:00 97.8 112 17 131/64 97 Physical Exam GENERAL: This is a well-nourished, well-developed patient, in no apparent distress. SKIN: No rashes, ecchymoses or lesions. Cool and dry. HEAD: Atraumatic. Normocephalic. EYES: Pupils equal round and reactive. ENT: Nose without bleeding, purulent drainage or septal hematoma. Airway patent. NECK: Trachea midline. No JVD or lymphadenopathy. CARDIOVASCULAR: Regular rate and rhythm without murmurs, gallops, or rubs. RESPIRATORY: Clear to auscultation. Breath sounds equal bilaterally. No wheezes , rales, or rhonchi. GASTROINTESTINAL: Abdomen soft, non-tender, nondistended. No hepato-splenomegaly , or palpable masses. No guarding. MUSCULOSKELETAL: Extremities without clubbing, cyanosis, or edema. No joint tenderness, effusion, or edema noted. No calf tenderness. NEUROLOGICAL: Awake and alert. Motor and sensory grossly within normal limits. Normal speech. Laboratory Laboratory Tests Test 01/10/17 23:40 White Blood Count 10.5 Red Blood Count 4.81 Hemoglobin 15.2 Hematocrit 45.2 Mean Corpuscular Volume 94.1 Mean Corpuscular Hemoglobin 31.5 Mean Corpuscular Hemoglobin 33.5 Concent Red Cell Distribution Width 13.3 Platelet Count 228 Mean Platelet Volume 8.5 Neutrophils (%) (Auto) 67.1 Lymphocytes (%) (Auto) 20.7 Monocytes (%) (Auto) 8.1 Eosinophils (%) (Auto) 3.4 Basophils (%) (Auto) 0.7 Neutrophils # (Auto) 7.0 Lymphocytes # (Auto) 2.2 Monocytes # (Auto) 0.8 Eosinophils # (Auto) 0.4 Basophils # (Auto) 0.1 CBC Comment DIFF FINAL Differential Comment Prothrombin Time 11.1 Prothromb Time International 1.0 Ratio Activated Partial 27.8 Thromboplast Time Sodium Level 140 Potassium Level 4.5 Chloride Level 107 Carbon Dioxide Level 25.1 Anion Gap 8 Blood Urea Nitrogen 26 Creatinine 1.29 Estimat Glomerular Filtration 57 Rate Random Glucose 95 Calcium Level 8.2 Magnesium Level 2.2 Total Creatine Kinase 62 Troponin I 0.02 B-Type Natriuretic Peptide 199 Result Diagram: 01/10/17 2340 01/10/17 2340 Imaging Last Impressions Chest X-Ray 01/10/17 2330 Signed Impressions: Service Date/Time: Tuesday, January 10, 2017 23:56 - CONCLUSION: No acute findings. Cardiomegaly with. Jose Angel Alcazar MD Assessment and Plan Problem List: (1) Atrial fibrillation with RVR ICD Code: I48.91 Status: Acute (2) CHF (congestive heart failure) ICD Code: I50.9 Status: Chronic Assessment and Plan 56 y/o male with a history of CHF and nephrolithiasis presented to the ED via EVAC because he was wearing his life vest and it fired. A. fib with RVR, new onset EKG reviewed shows A. fib with RVR -Start Lovenox every 12h -Serial troponin and EKGs -Consult cardiology for recommendations CHF, chronic, recent diagnosis, BNP 199 Recent echocardiogram shows EF 20-25% -Await cardiology recommendations -Monitor fluid intake -Patient states a new life vest is supposed to be delivered today by the [employer] rep DVT prophylaxis: Lovenox This note was transcribed by leana []. I, Dr. Casandra Ashford personally performed the history, physical exam, and medical decision making; and confirmed the accuracy of the information in the transcribed note. Authenticated by Dr. Casandra Ashford on 01/11/17 at 04:33. Problem Qualifiers (1) CHF (congestive heart failure): Qualified Code: I50.22 - Chronic systolic congestive heart failure Patt Maria Jan 11, 2017 04:36 Casandra Ashford MD Jan 11, 2017 06:30
[2017-01-11 06:38] LABS: CREATINE KINASE 53 U/L (39-308)
--- NOTE | 2017-01-11 07:37 | EKG ---
Date Performed: 01/10/2017 Time Performed: 23:02:13 PTAGE: 56 years EKG: ATRIAL FIBRILLATION WITH RAPID VENTRICULAR RESPONSE WITH ABERRANT CONDUCTION OR VENTRICULAR PREMATURE COMPLEXES RIGHT BUNDLE BRANCH BLOCK LEFT POSTERIOR FASCICULAR BLOCK ABNORMAL ECG Compared to the PREVIOUS TRACING Rapid atrial fibrillation is now present. DOCTOR: Tucker Mccord Interpretating Date/Time 01/11/2017 07:35:07
[2017-01-11] MEDS ORDERED: AMIODARONE INJ 150 MG in DEXTROSE 5% IN WATER 100ML INJ 97 ML IV ONE ×2 (07:45)
[2017-01-11] MEDS: SODIUM CHLORIDE 0.9% FLUSH 10 ML FLUSH IV FLUSH SCH ×2 (07:50→21:00)
--- NOTE | 2017-01-11 07:54 | PD.CONS ---
HPI Service CV Consult Requested By Reason for Consult a-fib Primary Care Physician No Primary Care Physician History of Present Illness Here with nonischemic cardiomyopathy EF 20% to 25%, h/o CHF and NSVT admitted now for new onset a-fib. He states yesterday afternoon his Life Vest began to alarm and he called the company. They told him that it was functioning normally / Later that day it alarmed again for tachycardia. He then began to monitor his pulse and it went up to 160 at one time. He denies chest pain or shortness of breath. Review of Systems Consitutional: DENIES: Fatigue, Fever, Chills, Weight gain, Weight loss Eyes: DENIES: Amaurosis Fugax, Change in vision HEENT: DENIES: Lightheadedness, Change in hearing Respiratory: DENIES: See HPI, Cough, Snoring, Shortness of breath, Wheezing, Sputum production Cardiovascular: COMPLAINS OF: See HPI Gastrointestinal: DENIES: Nausea, Vomiting, Change in bowel habits, Reflux, Bloody stools, Melena Genitourinary: DENIES: Urinary incontinence, Difficulty voiding Integumentary: COMPLAINS OF: Rash Neurologic: DENIES: Tingling or numbness, Memory problems, Poor Balance, Stroke symptoms Musculoskeletal: DENIES: Joint pain, Muscle pain, Limited range of motion, Back pain Psychiatric: DENIES: Anxiety, Depression, Sleep disturbances Hematologic: DENIES: Bruising tendencies, Bleeding tendencies Endocrine: DENIES: Weight gain, Weight loss, Thyroid disease Past Family Social History Allergies: Coded Allergies: No Known Allergies (Verified , 01/10/17) Past Medical History see HPI Colon polyps Nephrolithiasis Past Surgical History coronary angiogram Reported Medications Reported Meds & Active Scripts Active Altace (Ramipril) 1.25 Mg Cap 1.25 Mg PO DAILY 30 Days Coreg (Carvedilol) 3.125 Mg Tab 3.125 Mg PO Q12HR 30 Days Defibrillator Jacket (Device) 1 Ea Device 1 Ea EXTERNAL ONCE Energy = 150 Joules; VT Threshold = 150 BPM; VF Threshold = 200 BPM Use up to 90 days only Reported Alprazolam 0.25 Mg Tab 0 PO Q4H PRN [Vitamins] DAILY Active Ordered Medications Current Medications Medications (Trade) Dose Ordered Sig/Mohan Route Start Time Stop Time Status Last Admin (NS Flush) 2 ml UNSCH PRN IVF 01/10/17 23:30 (NS Flush) 2 ml UNSCH PRN IV FLUSH 01/11/17 01:15 (NS Flush) 2 ml BID IV FLUSH 01/11/17 09:00 (Narcan Inj) 0.4 mg UNSCH PRN IV 01/11/17 01:15 (Lovenox Inj) 100 mg Q12HR SQ 01/11/17 09:00 Family History noncontributory Social History 2 PPD smoker occasional EtOH denies substance abuse Physical Exam Vital Signs Vital Signs Date Time Temp Pulse Resp B/P Pulse Ox O2 Delivery O2 Flow Rate FiO2 01/11/17 05:30 97.4 66 16 107/64 97 01/11/17 04:04 68 16 130/84 99 Nasal Cannula 2 01/11/17 02:07 79 18 122/64 99 Nasal Cannula 2 01/11/17 00:51 87 18 115/68 99 Nasal Cannula 2 01/10/17 23:32 99 Nasal Cannula 2 01/10/17 23:32 18 01/10/17 23:00 97.8 112 17 131/64 97 Physical Exam GENERAL: Well-nourished, well-developed patient in no apparent distress. NECK: No JVD. No carotid bruit. CARDIOVASCULAR: IR IR S1/S2 no murmur, rub, or gallop. RESPIRATORY: No accessory muscle use. Clear to auscultation. Breath sounds equal bilaterally. GASTROINTESTINAL: Abdomen soft, non-tender, nondistended. MUSCULOSKELETAL: Extremities without clubbing, cyanosis, or edema. Laboratory Laboratory Tests Test 01/10/17 01/11/17 23:40 06:05 White Blood Count 10.5 Red Blood Count 4.81 Hemoglobin 15.2 Hematocrit 45.2 Mean Corpuscular Volume 94.1 Mean Corpuscular Hemoglobin 31.5 Mean Corpuscular Hemoglobin 33.5 Concent Red Cell Distribution Width 13.3 Platelet Count 228 Mean Platelet Volume 8.5 Neutrophils (%) (Auto) 67.1 Lymphocytes (%) (Auto) 20.7 Monocytes (%) (Auto) 8.1 Eosinophils (%) (Auto) 3.4 Basophils (%) (Auto) 0.7 Neutrophils # (Auto) 7.0 Lymphocytes # (Auto) 2.2 Monocytes # (Auto) 0.8 Eosinophils # (Auto) 0.4 Basophils # (Auto) 0.1 CBC Comment DIFF FINAL Differential Comment Prothrombin Time 11.1 Prothromb Time International 1.0 Ratio Activated Partial 27.8 Thromboplast Time Sodium Level 140 Potassium Level 4.5 Chloride Level 107 Carbon Dioxide Level 25.1 Anion Gap 8 Blood Urea Nitrogen 26 Creatinine 1.29 Estimat Glomerular Filtration 57 Rate Random Glucose 95 Calcium Level 8.2 Magnesium Level 2.2 Total Creatine Kinase 62 53 Troponin I 0.02 LESS THAN 0.02 B-Type Natriuretic Peptide 199 Result Diagram: 01/10/17233901/10/172339 Assessment and Plan Problem List: (1) NICM (nonischemic cardiomyopathy) (2) Atrial fibrillation with RVR Assessment and Plan A-fib now rate controlled, will initiate amiodarone protocol to try to medically convert to SR. Due to hypotension we will hold MOHAN-I and BB and anticipate restarting when he returns to SR. We will also initiate digoxin 125 mcg. We will also plan 30 days of anticoagulation as outpatient There is no clinical evidence for CHF Clem Aranda Jan 11, 2017 07:54
[2017-01-11] MEDS: DIGOXIN 0.125 MG TAB PO SCH (08:41)
[2017-01-11] MEDS ORDERED: ENOXAPARIN SODIUM 100 MG/ML SYRINGE SQ SCH (09:00)
--- NOTE | 2017-01-11 09:49 | EKG ---
Date Performed: 01/11/2017 Time Performed: 05:43:52 PTAGE: 56 years EKG: Atrial fibrillation with frequent PVCs or aberrant ventricular conduction Right axis deviat ion Right bundle branch block Abnormal ECG Compared to the PREVIOUS TRACING Rate has slowed and PVCs are now present. PREVIOUS TRACIN01/10/2017 23.02 DOCTOR: Tucker Mccord Interpretating Date/Time 01/11/2017 09:48:14
[2017-01-11] MEDS: AMIODARONE INJ 450 MG in DEXTROSE 5% IN WATE(EXCEL) INJ 250 ML IV SCH ×2 (11:17)
[2017-01-11] MEDS: DABIGATRAN ETEXILATE 150 MG CAP PO SCH ×2 (12:19→22:00)
--- NOTE | 2017-01-11 13:34 | EKG ---
Date Performed: 01/11/2017 Time Performed: 11:04:38 PTAGE: 56 years EKG: ATRIAL FIBRILLATION WITH ABERRANT CONDUCTION OR VENTRICULAR PREMATURE COMPLEXES RIGHT BUNDL E BRANCH BLOCK LEFT POSTERIOR FASCICULAR BLOCK ABNORMAL ECG Compared to prior tracing no significant change PREVIOUS TRACING : 01/11/2017 05.43 DOCTOR: Tucker Mccord Interpretating Date/Time 01/11/2017 13:33:54
[2017-01-11 18:08] LABS: CREATINE KINASE 44 U/L (39-308)
[2017-01-12 04:20] VITALS: BP_SYST 92; BP_DIAS 54; BP_DIAS 72; PULSE 64; RESP 16; TEMP 97.5; O2SAT 97
[2017-01-12 07:35] VITALS: PULSE 64
[2017-01-12 08:00] VITALS: BP 91/78; PULSE 66; RESP 16; TEMP 97.4; O2SAT 96
[2017-01-12] MEDS: SODIUM CHLORIDE 0.9% FLUSH 10 ML FLUSH IV FLUSH SCH (08:15)
[2017-01-12] MEDS: DABIGATRAN ETEXILATE 150 MG CAP PO SCH (08:15)
[2017-01-12] MEDS: DIGOXIN 0.125 MG TAB PO SCH (08:15)
[2017-01-12] MEDS: AMIODARONE INJ 450 MG in DEXTROSE 5% IN WATE(EXCEL) INJ 250 ML IV SCH ×2 (09:46)
--- NOTE | 2017-01-12 09:54 | HHI.PR ---
Subjective Remarks up and ambulating slowly around room- no chest pains or shortness of breath telemetry- in SR with occasional PVCs Objective Vitals Vital Signs Date Time Temp Pulse Resp B/P Pulse Ox O2 Delivery O2 Flow Rate FiO2 01/12/17 08:18 Nasal Cannula 2.00 01/12/17 08:00 97.4 66 16 91/78 96 01/12/17 07:35 64 01/12/17 04:20 97.5 64 16 92/54 97 92/72 01/11/17 23:32 97.7 72 16 94/64 97 01/11/17 20:00 Nasal Cannula 2.00 01/11/17 20:00 94 01/11/17 19:53 97.6 65 16 94/66 97 01/11/17 16:00 97.6 75 20 102/64 95 01/11/17 12:00 97.4 80 20 103/59 98 I/O 01/11/17 01/11/17 01/11/17 01/12/17 01/12/17 01/12/17 06:59 14:59 22:59 06:59 14:59 22:59 Intake Total 0 ml 895 ml 0 ml Output Total 0 ml 625 ml 800 ml 750 ml Balance 0 ml -625 ml 95 ml -750 ml Intake Oral 0 ml 480 ml 0 ml IV Total 415 ml Output Urine Total 0 ml 625 ml 800 ml 750 ml # Bowel Movements 0 0 0 Result Diagram: 01/10/17 2340 01/10/17 2340 Imaging Last Impressions Chest X-Ray 01/10/17 2330 Signed Impressions: Service Date/Time: Tuesday, January 10, 2017 23:56 - CONCLUSION: No acute findings. Cardiomegaly with. Jose Angel Alcazar MD Objective Remarks awake and alert, NAD anicteric lungs no rales or wheezes regular rhythm, occasional PVcs abdomen- globularly soft, nontender extremiteis no edema, no calf tenderness or swelling A/P Problem List: (1) Atrial fibrillation with RVR ICD Code: I48.91 Status: Acute (2) CHF (congestive heart failure) ICD Code: I50.9 Status: Chronic Assessment and Plan 56 y/o male with a history of CMP S/P AICD- came in because he was wearing his life vest and it fired. A. fib with RVR, new onset- now in SR - on amiodarone drip per Dr. Trujillo - started on digoxiin 0,125 mg po daily- check level - started on Pradaxa Non ischemic Cardiomyopathy- not in clinical failure S/P AICD 01/06 EF 32%, normal coronaries -cardiology ff - BB and MOHAN held due to relatively low SBP- in the 90s 6 pm - cleared by cardiology for DC seen with at bedside Life vest placed Diet- heart healthy Activity- no strenuous activity Medication. Pradaxa 150 mg po bid Amiodarone 200 mg po daily Digoxin 0,125 mg po daily HOld MOHAN because of low borderline SBP- patient will be reevaluated and ff by Dr. Trujillo on Tuesday d/w patient and at bedside Problem Qualifiers (1) CHF (congestive heart failure): Qualified Code: I50.22 - Chronic systolic congestive heart failure David Moore MD Jan 12, 2017 09:54
[2017-01-12 12:00] VITALS: BP 104/70; PULSE 79; RESP 16; TEMP 97.5; O2SAT 95
[2017-01-12 12:27] LABS: POTASSIUM 4.3 MEQ/L (3.5-5.1)
[2017-01-12 16:00] VITALS: BP 98/62; PULSE 87; RESP 18; TEMP 97.6; O2SAT 95
[2017-01-12] MEDS ORDERED: PRAD150C PO (18:30)
[2017-01-12] MEDS ORDERED: AMIO200T PO (18:30)
[2017-01-12] MEDS ORDERED: DIGO0.12 PO (18:30)
[2017-01-13] MEDS ORDERED: AMIODARONE 200 MG TAB PO SCH (09:00)
== END 2017-01-12 19:09 | disposition home or self-care (01) ==
LOC: NEPC 22:58 → INTOOBSV 01-11 01:20 → NEDA 01-11 01:20 → N04B 01-11 05:25
PROVIDERS: ADMIT Family Medicine; ATTEND Family Medicine
DX: I48.91 Unspecified atrial fibrillation (principal); I47.2 Ventricular tachycardia; I44.5 Left posterior fascicular block; I50.22 Chronic systolic (congestive) heart failure; I42.9 Cardiomyopathy, unspecified; E78.5 Hyperlipidemia, unspecified; F17.210 Nicotine dependence, cigarettes, uncomplicated; Z79.01 Long term (current) use of anticoagulants; Z79.82 Long term (current) use of aspirin; Z86.010 Personal history of colon polyps; Z87.442 Personal history of urinary calculi; Z95.810 Presence of automatic (implantable) cardiac defibrillator
CPT/HCPCS: 71010; 80048; 80162; 82550; 83735; 83880; 84484; 85025; 85610; 85730; 93005; 96361; 96365; 96366; 99285; G0378; J0282; J7040; J7060

== ENCOUNTER 2017-02-03 10:57 | Day surgery (SDC) | payer BC ==
[2017-02-03] VITALS (8 sets, daily range): BP systolic 96–120; BP diastolic 62–72; PULSE 67–79; RESP 16; TEMP 97.5–97.9; O2SAT 94–95
[~2017-02-03] VITALS: Ht 182.9 cm; Wt 104.1 kg
[~2017-02-03 10:57] MED LIST changes: -ALPR0.25 PO; -ALTA1.256 PO; +AMIO200T PO; -CARV3.125 PO; +DIGO0.12 PO; +PRAD150C PO
[2017-02-03] MEDS ORDERED: SODIUM CHLORID 0.9% 500 ML IV PRN (11:30)
[2017-02-03] MEDS ORDERED: LACTATED RINGER'S 1000 ML IV PRN (11:30)
[2017-02-03] MEDS ORDERED: INSULIN HUMAN REGULAR 1,000 UNITS/10 ML VIAL SQ PRN (11:30)
[2017-02-03] MEDS ORDERED: POVIDONE IODINE 5% (ANTISEPSIS KIT) 4 APPLICATIONS EACH NARE PRN (11:30)
[2017-02-03] MEDS ORDERED: CHLORHEXIDINE GLUCONATE 2 % 1 PACK (2 CLOTHS) TOPICAL PRN (11:30)
[2017-02-03] MEDS ORDERED: METOPROLOL TARTRATE 25 MG TAB PO PRN (11:30)
[2017-02-03] MEDS ORDERED: LORazepam 1 MG TAB SL SCH (11:30)
[2017-02-03] MEDS ORDERED: SODIUM CHLORID 0.9% 500 ML INJ 500 ML IV SCH (12:00)
[2017-02-03 12:08] LABS: AUTOMATED NEUTROPHIL # 7.5 TH/MM3 (1.8-7.7); BASOPHIL # 0.1 TH/MM3 (0-0.2); BASOPHIL % 0.8 % (0.0-2.0); EOSINOPHIL # 0.2 TH/MM3 (0-0.4); EOSINOPHIL % 2.2 % (0.0-4.0); HEMATOCRIT 42.6 % (39.0-51.0); HEMO FLAGS DIFF FINAL; LYMPH % 23.3 % (9.0-44.0); LYMPHOCYTE # 2.6 TH/MM3 (1.0-4.8); MEAN CELL VOLUME 92.3 FL (80.0-100.0); MEAN CORPUSCULAR HGB CONC 33.6 % (32.0-36.0); MONO % 7.4 % (0.0-8.0); NEUT % 66.3 % (16.0-70.0); PLATELET COUNT 274 TH/MM3 (150-450); RED BLOOD COUNT 4.62 MIL/MM3 (4.50-5.90); RED CELL DISTRIBUTION WIDTH 12.9 % (11.6-17.2); WHITE BLOOD COUNT 11.3 TH/MM3 (4.0-11.0)
[2017-02-03 12:13] LABS: APTT (PATIENT) 33.7 SEC (24.3-30.1); INTERNATIONAL NORMALIZED RATIO 1.1 RATIO; PROTHROMBIN TIME - PATIENT 11.9 SEC (9.8-11.6)
[2017-02-03 12:28] LABS: BICARBONATE 23.9 MEQ/L (21.0-32.0); POTASSIUM 4.8 MEQ/L (3.5-5.1)
[2017-02-03] MEDS ORDERED: MIDAZOLAM HCL 5 MG/5 ML VIAL ONE (15:11)
[2017-02-03] MEDS ORDERED: ISOPROTERENOL HCL 1 MG/5 ML AMP ONE (15:11)
[2017-02-03] MEDS ORDERED: KETAMINE HCL 500 MG/5 ML VIAL ONE (15:11)
[2017-02-03] MEDS ORDERED: HEPARIN SODIUM - IV 10,000 UNITS/10 ML VIAL ONE ×2 (15:11→16:14)
[2017-02-03] MEDS ORDERED: HEPARIN-NS/PF INJ 1,000 ML ONE (15:25)
[2017-02-03] MEDS ORDERED: HEPARIN-D5W 25,000 U/250 ML 250 ML ONE (16:13)
[2017-02-03] MEDS ORDERED: PROTAMINE SULFATE 50 MG/5 ML VIAL ONE ×2 (16:55→17:20)
[2017-02-03] MEDS ORDERED: LORazepam 2 MG/ML VIAL IV PUSH PRN (17:15)
[2017-02-03] MEDS ORDERED: METOCLOPRAMIDE HCL 10 MG/2 ML VIAL IV PUSH PRN (17:15)
[2017-02-03] MEDS ORDERED: ONDANSETRON HCL 4 MG/2 ML VIAL IV PUSH PRN (17:15)
[2017-02-03] MEDS ORDERED: oxyCODONE/ACETAMINOPHEN 5 MG/325 MG TAB PO PRN ×2 (17:15)
[2017-02-03] MEDS ORDERED: LIDOCAINE HCL 1% 50 ML VIAL INFIL PRN (17:15)
[2017-02-03] MEDS ORDERED: SODIUM CHLOR 0.9% 250 ML INJ 250 ML IV PRN (17:15)
[2017-02-03] MEDS ORDERED: BACITRACIN OINT 0.9 GM PKT TOP ONE (17:15)
[2017-02-03] MEDS ORDERED: ATROPINE SULFATE 1 MG/ML VIAL IV PUSH PRN (17:15)
--- NOTE | 2017-02-03 17:36 | CATHPROC ---
[place] HIS Report Study Information Study Number Admission Scheduled Start Study Start [id number] Feb 03 2017 10:57AM 02/03/2017 Feb 03 2017 2:46PM [place] Service Electrophysiology Study Admit Source Facility Department Other [facility] - Softball Player Physician and Clinical Staff Initial Polina Christianson Director Customer Bing Clavo,RT(R) TECH2 Director Customer CamBlanca cain,MASSAGE COORDINATOR Other Anesthesia, POLITICAL RESEARCH SCIENTIST Other Charlene Avery,BREANN Recorder Emily AdlerBSRN Scrub Marcel Ellis,RT(R) Procedures Performed Procedure Location (Site) Vessel Name Ablation Procedure ICE CATHETER INSERT RA Atruim RF Ablation LT. ATRIUM LT. ATRIUM Equipment Time City Assessor Description Size Mfg Part Number Used/Scraped NEEDLE, TRANSSEPTAL NRG 98 15:51 [facility] [id number] Used C1 BIOS[employer]in[employer] Women's HealthTER [id number] 15:50 CATHETER, ACUNAV FR10 ICE FR 10 Used INC. *[id number] [employer]/ EP 15:51 KIT, TRANSDUCER / AFIB [id number] Used PACER [id number] CATHETER, TACTICATH ABLAT BUNDLE 16:20 [facility] [place] Used 65 BUNDLE *[id number]- BUNDLE [id number] CATHETER, FR7 OPTIMA SPIRAL 15:51 [facility] [place] FR7 *[id number] Used BUNDLE BUNDLE [id number] 15:51 [facility] [place] CATHETER, JSN, QUAD BUNDLE FR 5 *[id number]- Used BUNDLE SHEATH, FR8.5 STEERABLE SM 15:51 [facility] [place] 71CM [id number] Used 71CM BUNDLE COVER, TRANSDUCER CABLE 15:51 [employer] 612-113 Used ACUNAV 15:51 CORDIS/PACER SHEATH, FR10 ARMANDO 11CM FR 10 [id number] Used 15:43 CORDIS/PACER SHEATH, FR10 ARMANDO 11CM FR 10 [id number] Used 15:51 CORDIS/PACER SHEATH, FR9 ARMANDO 11CM FR 9 [id number] Used [id number] 15:51 [employer] INDUSTRIES PACK, CCL CUSTOM * Used *[id number] 15:51 [employer] PACER NGUYEN, LIMB * 9860 *[id number] Used [id number] 15:51 [employer] MEDICAL SHEATH, FR4.5 PRELUDE 11CM FR 4.5 Used [id number] 16:57 [employer] MEDICAL PACER SHEATH, FR8.5 MERIT 11CM FR 8.5 [id number] Used [id number] 15:51 NAM[employer] TUBING, HIGH PRESSURE 48" 48" Used *[id number] 15:41 NAMIC TUBING, HIGH PRESSURE 48" 48" Used *[id number] 15:09 [employer],WARM AIR CCL * Used *[id number] 15:51 [employer],WARM AIR CCL * Used *[id number] 15:50 [facility] [place] MEDICAL CATHETER, FR7 OPTIMA SPIRAL FR7 [id number] *[id number] Used [id number] 15:10 [facility] [place] MEDICAL CATHETER, JSN, QUAD FR 5 Used *[id number] 15:10 [facility] [place] MEDICAL CATHETER, JSN, QUAD FR 5 Used *[id number] 15:10 [facility] [place] MEDICAL CATHETER, JSN, QUAD FR 5 Used *[id number] 15:44 [facility] MEDICAL SHEATH, EPS, FR4 FAST CATH FR 4 [id number] Used 538183 15:44 [facility] [place] MEDICAL SHEATH, EPS, FR6 FAST CATH FR 6 Used *[id number] 357369 15:11 [facility] MEDICAL SHEATH, EPS, FR6 FAST CATH FR 6 Used *[id number] 690264 15:45 [facility] MEDICAL SHEATH, EPS, FR6 FAST CATH FR 6 Used *[id number] 15:51 [facility] MEDICAL SHEATH, EPS, FR7 FAST CATH FR 7 [id number] Used 150303 15:51 [facility] MEDICAL SHEATH, EPS, FR8 FAST CATH FR 8 Used *[id number] 184873 15:11 [facility] MEDICAL SHEATH, EPS, FR8 FAST CATH FR 8 Used *[id number] 010230 15:45 [facility] MEDICAL SHEATH, EPS, FR8 FAST CATH FR 8 Used *[id number] SHEATH, FR8.5 STEERABLE SM 15:50 [facility] MEDICAL 71CM [id number] Used 71CM [facility] PAD, ELECTROSURGICAL 15:09 * [id number] *[id number] Used SURGICAL GROUNDING (BLUE) [facility] PAD, ELECTROSURGICAL 15:51 * [id number] *[id number] Used SURGICAL GROUNDING (BLUE) History: Allergies Allergy Reaction No Known Allergies NKDA History: Risk Factors Family History of Hypertension Dyslipidemia Previous [place] Previous Heart Failure Premature CAD No No No No Yes Prior Valve Prior PCI Prior CABG Surgery No No No Cerebrovascular Peripheral Artery Chronic Lung On Dialysis Diabetes Disease Disease Disease No No No Yes No History: Symptoms/Diagnosis Selection Items Syncope History: CV Disease Selection Items Cardiomyopathy nonischemic History: Other Disease Selection Items CHF COPD Labs Hgb (g/dl) Hct (%) RBC (MIL/MM3) WBC (l/cumm) Platelets (thousands) 11.60-17.00 35.00-51.00 4.00-5.90 4.00-11.00 150.00-450.00 14.3 42.6 4.6 11.3 274 Glucose (mg/dl) BUN (mg/dl) Creatinine (mg/dl) BUN:Creatinine (1:x) 74.00-106.00 7.00-18.00 0.50-1.30 10.00-20.00 95 22 1.3 16.9 Na (meq/l) K (meq/l) 136.00-145.00 3.50-5.10 138 4.8 INR (PTT:PT) 0.90-1.10 1.1 Medication Medication Total Dose (Bolus/Oral) Medication Total Dosage/Unit 1% XYLOCAINE 40 mL HEPARIN 72569 units PROTAMINE 60 mg Medications (Bolus/Oral) Medication Time Given Dosage/Unit Administered By Reason 1% XYLOCAINE 02/03/2017 3:39:16 PM 20 mL Emily Adler As per physicians v erbal order 20 mL 1% XYLOCAINE given in lab by Emily Adler BSRN in Left Groin via Subcutaneous. Ordered by Polina Morgan. Reason: As per physicians verbal order. 1% XYLOCAINE 02/03/2017 3:44:50 PM 20 mL Emily Adler As per physicians v erbal order 20 mL 1% XYLOCAINE given in lab by Emily Adler BSRN in Right Groin via Subcutaneous. Ordered by Polina Morgan. Reason: As per physicians verbal order. HEPARIN 02/03/2017 4:04:42 PM 48451 units Anesthesia, POLITICAL RESEARCH SCIENTIST As per physicians v erbal order 87913 units HEPARIN given in lab by Anesthesia, POLITICAL RESEARCH SCIENTIST in Right Forearm via Peripheral IV. Ordered by Polina Mcbride. Reason: As per physicians verbal order. HEPARIN 02/03/2017 4:17:36 PM 3000 units Anesthesia, POLITICAL RESEARCH SCIENTIST As per physicians ve rbal order 3000 units HEPARIN given in lab by Anesthesia, POLITICAL RESEARCH SCIENTIST via Peripheral IV. Ordered by Polina Morgan. Reas on: As per physicians verbal order. HEPARIN 02/03/2017 4:37:48 PM 2000 units Anesthesia, POLITICAL RESEARCH SCIENTIST As per physicians ve rbal order 2000 units HEPARIN given in lab by Anesthesia, POLITICAL RESEARCH SCIENTIST in Right Forearm via Peripheral IV. Ordered by Polina Duff. Reason: As per physicians verbal order. HEPARIN 02/03/2017 4:54:13 PM 2000 units Anesthesia, POLITICAL RESEARCH SCIENTIST As per physicians ve rbal order 2000 units HEPARIN given in lab by Anesthesia, POLITICAL RESEARCH SCIENTIST in Right Forearm via Peripheral IV. Ordered by Polina Duff. Reason: As per physicians verbal order. PROTAMINE 02/03/2017 4:58:24 PM 40 mg Anesthesia, POLITICAL RESEARCH SCIENTIST As per physicians dru bal order 40 mg PROTAMINE given in lab by Anesthesia, POLITICAL RESEARCH SCIENTIST in Right Forearm via Peripheral IV. Ordered by Polina Morgan. Reason: As per physicians verbal order. PROTAMINE 02/03/2017 5:17:17 PM 20 mg Anesthesia, POLITICAL RESEARCH SCIENTIST As per physicians dru bal order 20 mg PROTAMINE given in lab by Anesthesia, POLITICAL RESEARCH SCIENTIST in Right Forearm via Peripheral IV. Ordered by Polina Morgan. Reason: As per physicians verbal order. Medication (Drip) Medication Time Given Dosage/Unit Concentration/Unit Diluent (ml) Solution HEPARIN DRIP 02/03/2017 4:16:00 PM 1000 units/hr 32522 units 250 D5W 1000 units/hr HEPARIN DRIP given in lab by Anesthesia, POLITICAL RESEARCH SCIENTIST via Peripheral IV. Pump/Drip Flow = 10 ml /hr [place] [address] units in 250 ml. Ordered by Polina Morgan. HEPARIN DRIP 02/03/2017 4:16:10 PM 1000 units/hr 22679 units 250 D5W 1000 units/hr HEPARIN DRIP given in lab by Anesthesia, POLITICAL RESEARCH SCIENTIST in Right Forearm via Peripheral IV. Pump/ Drip Flow = 10 ml/hr [place] [address] units in 250 ml. Ordered by Polina Morgan. Reason: As per physicians verbal or jordan. IV Solutions 02/03/2017 3:18:34 PM 0 mL (IV) NaCl .9 IV Solutions given in lab by Emily Adler BSRN in Left Forearm via Peripheral IV. Pump/Drip Flow = 50 ml/hr using NaCl .9. Reason: As per physicians verbal order. IV Solutions 02/03/2017 3:19:04 PM 0 mL (IV) NaCl .9 IV Solutions given in lab by Emily Adler BSRN in Left Forearm via Peripheral IV. Pump/Drip Flow = 50 ml/hr using NaCl .9. Ordered by Polina Morgan. Reason: As per physicians verbal order. Initial Case Assessment Cardiovascular HR NIBP Chest Pain 69 100/70 0 Edema Present Skin color Skin None Normal Warm Dry Neurological State Oriented to time-place- Alert Moves all extremities person Respiration - General Respiration Rate SpO2 (%) (B/min) 20 100 Final Case Assessment Cardiovascular HR NIBP 76 110/72 Edema Present Skin color Skin None Normal Warm Dry Neurological State Oriented to time-place- Alert Moves all extremities person Respiration - General Respiration Rate SpO2 (%) (B/min) 20 98 Chronological Log Time Study Chronological Log 15:10:10 Patient arrived via Bed. 15:11:17 Patient Name, D.O.B, / Armband Verified By R.N. 15:11:18 Consent signed by the physician and the patient and verified by the Softball Player staff. 15:11:18 Pre-op and post- op instructions given; patient acknowledges understanding of instructions. 15:11:20 Verbal Stimulation=2 Physical Stimulation=2 Airway=2 Respiration=2 TOTAL=8. (0=absent, 1=li mited, 2=present) 15:11:30 Anesthesia at bedside. Assumes care of patient. Toshia RICHARDS 15:11:31 Presedation assessment performed by Softball Player RN. 15:11:33 Patient has been NPO for More than 6Hrs. 15:11:37 Patient Warmer Placed on the Table. 15:11:39 Disposable Defibrillator Pads Placed On Patient. 15:11:40 Adrianne Prominences Protected 15:18:09 A # 20 IV was noted in the Forearm (left). Grade = ~GRADE~ 15:18:23 A # 20 IV was noted in the Forearm (right). Grade = ~GRADE~ IV Solutions given in lab by Emily Adler BSRN in Left Forearm via Peripheral IV. Pump/Dri p Flow = 50 ml/hr using 15:18:34 NaCl .9. Reason: As per physicians verbal order. IV Solutions given in lab by Emily Adler BSRN in Left Forearm via Peripheral IV. Pump/Dri p Flow = 50 ml/hr using 15:19:04 NaCl .9. Ordered by Polina Morgan. Reason: As per physicians verbal order. 15:19:30 History and physical on the chart or being dictated. Assessment: Initial Case, HR=69 BPM, HOTD=729/70 mmhg, Chest Pain=0, Edema=None, Color=Normal, Skin = Warm, Dry 15:19:32 Neurological: State=Alert, Ox3, PORTER Respiration: Resp=20 B/min, RcQ0=812 % 15:20:35 Table restraints applied according to hospital policy 15:20:37 Right groin prepped with 2% chlorhexidine, and with a 3 min. waiting time. 15:20:40 Left groin prepped with 2% chlorhexidine, and with a 3 min. waiting time. 15:31:30 Reference ECG taken Time Out. Correct patient, procedure, procedure equipment, site and side verified with physicia n present. Time 15:38:00 concurred by MD, individual staff and POLITICAL RESEARCH SCIENTIST. Time Out #2 - Consents verified, patient in correct position, all results are labled and displa yed, safety precautions 15:38:16 taken, antibiotics administered. Time out concurred by MD, individual staff and POLITICAL RESEARCH SCIENTIST in procedu re 15:38:58 Case Start 20 mL 1% XYLOCAINE given in lab by Emily Adler BSRN in Left Groin via Subcutaneous. Order ed by Eddie, 15:39:16 Polina. Reason: As per physicians verbal order. 15:39:53 Vascular access was obtained in the Fem Vein (left). 15:40:00 Vascular access was obtained in the Fem Vein (left). 15:40:00 Vascular access was obtained in the Fem Vein (left). 15:40:06 Vascular access was obtained in the Fem Art (left). 15:43:49 A SHEATH, EPS, FR6 FAST CATH FR 6 was advanced into the Fem Vein (left) using the Percutane ous technique. 15:44:04 A SHEATH, FR10 ARMANDO 11CM FR 10 was advanced into the Fem Vein (left) using the Percutaneo us technique. 15:44:20 A SHEATH, EPS, FR6 FAST CATH FR 6 was advanced into the Fem Vein (right) using the Percutan eous technique. 15:44:29 A SHEATH, EPS, FR4 FAST CATH FR 4 was advanced into the Fem Art (left) using the Percutaneo us technique. 20 mL 1% XYLOCAINE given in lab by Emily Adler BSRN in Right Groin via Subcutaneous. Orde red by Eddie, 15:44:50 Polina. Reason: As per physicians verbal order. 15:45:02 Vascular access was obtained in the Fem Vein (right). 15:45:05 Vascular access was obtained in the Fem Vein (right). 15:45:09 A SHEATH, EPS, FR8 FAST CATH FR 8 was advanced into the Fem Vein (right) using the Percutan eous technique. 15:45:16 A SHEATH, EPS, FR6 FAST CATH FR 6 was advanced into the Fem Vein (right) using the Percutan eous technique. A CATHETER, JSN, QUAD FR 5 was advanced vis Fem Vein (left) and placed in the CS. Placement was visually 15:46:17 confirmed under fluoroscopy. A CATHETER, JSN, QUAD FR 5 was advanced vis Fem Vein (left) and placed in the HIS. Placement wa s visually 15:46:47 confirmed under fluoroscopy. 15:47:20 EP Study begun. 15:54:59 Anesthesia present for intubation. 15:58:54 CATHETER, ACUNAV FR10 ICE FR 10 Was Postioned. A SHEATH, FR8.5 STEERABLE SM 71CM 71CM was exchanged in the Fem Vein (right). This was necessar y in order for 16:01:37 catheter support. 16:02:56 Wet[place] needle inserted. 77498 units HEPARIN given in lab by Anesthesia, POLITICAL RESEARCH SCIENTIST in Right Forearm via Peripheral IV. Ordere d by Polina Morgan. 16:04:42 Reason: As per physicians verbal order. 16:06:00 Transseptal. Wetmore needle removed. 16:11:18 Mapping in progress. 16:12:14 Activated Clotting Time Drawn 1000 units/hr HEPARIN DRIP given in lab by Anesthesia, POLITICAL RESEARCH SCIENTIST via Peripheral IV. Pump/Drip Flow = 10 ml/hr using 16:16:00 D[place] [address] units in 250 ml. Ordered by Polina Morgan. 1000 units/hr HEPARIN DRIP given in lab by Anesthesia, POLITICAL RESEARCH SCIENTIST in Right Forearm via Peripheral IV. Pump/Drip Flow = 10 16:16:10 ml/hr [place] [address] units in 250 ml. Ordered by Polina Morgan. Re ason: As per physicians verbal order. 16:17:25 ACT (Normal Range 90-180) = 308 3000 units HEPARIN given in lab by Anesthesia, POLITICAL RESEARCH SCIENTIST via Peripheral IV. Ordered by Polina Morgan . Reason: As per 16:17:36 physicians verbal order. A CATHETER, TACTICATH ABLAT 65 BUNDLE was advanced vis Fem Vein (right) and placed in the LA. P lacement was 16:19:10 visually confirmed under fluoroscopy. 16:20:02 RF Ablation of the LT. ATRIUM with a CATHETER, TACTICATH ABLAT 65 BUNDLE. 16:28:06 Activated Clotting Time Drawn 16:37:29 ACT (Normal Range 90-180) = 323 2000 units HEPARIN given in lab by Anesthesia, POLITICAL RESEARCH SCIENTIST in Right Forearm via Peripheral IV. Ordered by Polina Morgan. 16:37:48 Reason: As per physicians verbal order. 16:45:00 Activated Clotting Time Drawn 16:51:26 ACT (Normal Range 90-180) = 333 2000 units HEPARIN given in lab by Anesthesia, POLITICAL RESEARCH SCIENTIST in Right Forearm via Peripheral IV. Ordered by Polina Morgan. 16:54:13 Reason: As per physicians verbal order. 16:55:10 A fib ablation completed. A SHEATH, FR9 ARMANDO 11CM FR 9 was exchanged in the Fem Vein (right). This was necessary in ord er to achieve 16:55:59 vascular hemostasis. 40 mg PROTAMINE given in lab by Anesthesia, POLITICAL RESEARCH SCIENTIST in Right Forearm via Peripheral IV. Ordered by Polina Morgan. 16:58:24 Reason: As per physicians verbal order. 16:59:43 Defibrillator and ground pads removed. Skin intact. 17:00:28 Ablation procedure performed: AFIB. 17:00:41 EP Procedure was performed. 17:01:27 Catheter(s) removed without difficulty 17:01:34 No case complications noted. 17:01:37 Cine recording checked. 17:01:40 Holding Area notified of successful intervention. 17:01:45 Bedside Report will be given. 17:04:44 PACU called. Spoke to 17:17:07 ACT (Normal Range 90-180) = 210 20 mg PROTAMINE given in lab by Anesthesia, POLITICAL RESEARCH SCIENTIST in Right Forearm via Peripheral IV. Ordered by Polina Morgan. 17:17:17 Reason: As per physicians verbal order. 17:22:00 Activated Clotting Time Drawn 17:25:00 ACT (Normal Range 90-180) = 163 17:32:24 PACU called. Spoke to Bing Assessment: Final Case, HR=76 BPM, TSJT=111/72 mmhg, Edema=None, Color=Normal, Skin = Warm, Dry 17:33:41 Neurological: State=Alert, Ox3, PORTER Respiration: Resp=20 B/min, SpO2=98 % 17:34:09 Case End 17:35:57 Patient moved to stretcher and transported to PACU in stable condition. End Study - Contrast Media Used In Study Contrast Total Opened (mL) Total Used (mL) Total Wasted (mL) Unspecified 0 0 0 End Study - Maximum Contrast Load Max Contrast Load (mL) 399.3 End Study - Radiation Exposure Fluoro Time (minutes) 4.1 End Study - Patient Disposition Complications Transferred To Interventional Outcome No Telemetry Bed successful
[2017-02-03] MEDS ORDERED: DO NOT ADM ANY ANTICOAGULANT DRUGS PRN (18:30)
[2017-02-03] MEDS: DABIGATRAN ETEXILATE 150 MG CAP PO SCH (20:31)
[2017-02-04] VITALS (16 sets, daily range): BP systolic 104–106; BP diastolic 73–80; PULSE 67–120; RESP 16–18; TEMP 97.5–98; O2SAT 92–95
[2017-02-04 07:33] LABS: APTT (PATIENT) 33.2 SEC (24.3-30.1); INTERNATIONAL NORMALIZED RATIO 1.1 RATIO; PROTHROMBIN TIME - PATIENT 11.8 SEC (9.8-11.6)
--- NOTE | 2017-02-04 08:08 | PD.CARD.PN ---
Subjective Subjective Remarks Feels okay. Objective Medications Current Medications Medications (Trade) Dose Ordered Sig/Mohan Route Start Time Stop Time Status Last Admin Sodium Chloride 500 ml @ 30 mls/hr [id number] IV 02/03/17 12:00 (Ativan) 1 mg CASE BRIEFER SL 02/03/17 11:30 02/06/17 11:29 (Lopressor) 25 mg CASE BRIEFER PRN PO 02/03/17 11:30 02/06/17 11:29 (Betadine 5% Antisepsis Kit) 1 applic CASE BRIEFER PRN EACH NARE 02/03/17 11:30 02/06/17 11:29 (Chlorhexidine 2% Cloth) 3 pack CASE BRIEFER PRN TOPICAL 02/03/17 11:30 02/06/17 11:29 (NovoLIN R INJ) See Protocol Table ... CASE BRIEFER PRN SQ 02/03/17 11:30 02/06/17 11:29 (Percocet 5-325 Mg) 1 tab Q4H PRN PO 02/03/17 17:15 (Percocet 5-325 Mg) 2 tab Q4H PRN PO 02/03/17 17:15 (Ativan Inj) 0.5 mg UNSCH PRN IV PUSH 02/03/17 17:15 02/04/17 17:14 (Atropine Inj) 0.5 mg UNSCH PRN IV PUSH 02/03/17 17:15 Sodium Chloride 250 ml @ 500 mls/hr ONCE PRN IV 02/03/17 17:15 02/04/17 17:14 (Reglan Inj) 10 mg Q4H PRN IV PUSH 02/03/17 17:15 (Zofran Inj) 4 mg Q4H PRN IV PUSH 02/03/17 17:15 (Xylocaine 1% Inj (50 ml)) 10 ml UNSCH PRN INFIL 02/03/17 17:15 02/04/17 17:14 (Cordarone) 200 mg DAILY PO 02/04/17 09:00 (Pradaxa) 150 mg BID PO 02/03/17 21:00 02/03/17 20:31 Miscellaneous Information ALL NURSING DEPARTME... UNSCH PRN .XX 02/03/17 18:30 02/04/17 18:29 (Pneumovax-23 Inj) 25 mcg ONCE ONCE IM 02/04/17 09:00 02/04/17 09:01 Vital Signs / I&O Vital Signs Date Time Temp Pulse Resp B/P (MAP) Pulse Ox O2 Delivery O2 Flow Rate FiO2 02/04/17 07:01 86 02/04/17 06:00 67 02/04/17 05:00 73 02/04/17 04:00 74 02/04/17 03:15 97.5 77 16 105/73 (84) 95 02/04/17 03:00 72 02/04/17 02:00 69 02/04/17 01:00 78 02/04/17 00:00 75 02/03/17 23:10 97.5 75 16 96/62 (73) 95 02/03/17 23:00 79 02/03/17 22:00 70 02/03/17 21:00 76 02/03/17 20:00 68 02/03/17 19:30 97.8 67 16 100/72 (81) 95 02/03/17 19:15 68 02/03/17 19:05 98.1 72 20 97/68 (78) 99 Room Air 02/03/17 18:45 72 20 97/68 (78) 99 Room Air 02/03/17 18:30 72 20 98/69 (79) 100 02/03/17 18:15 65 20 96/67 (77) 100 Nasal Cannula 2 02/03/17 18:00 66 20 105/72 (83) 100 Nasal Cannula 2 02/03/17 17:45 98.1 82 20 113/75 (88) 100 Nasal Cannula 2 02/03/17 11:51 97.9 77 16 120/72 (88) 94 I/O 02/03/17 02/03/17 02/03/17 02/04/17 02/04/17 02/04/17 07:00 15:00 23:00 07:00 15:00 23:00 Intake Total 1800 ml Output Total 875 ml Balance 925 ml Intake Oral 1800 ml Output Urine Total 875 ml # Bowel Movements 0 Physical Exam GENERAL: Well-nourished, well-developed patient. SKIN: Warm and dry. Groin sites soft with no bruising or bleeding. HEAD: Normocephalic. EYES: No scleral icterus. No injection or drainage. NECK: Supple, trachea midline. No JVD or lymphadenopathy. CARDIOVASCULAR: Regular rate and rhythm without murmurs, gallops, or rubs. RESPIRATORY: Breath sounds equal bilaterally. No accessory muscle use. GASTROINTESTINAL: Abdomen soft, non-tender, nondistended. EXTREMITIES: No cyanosis, or edema. NEUROLOGICAL: Awake, alert, and oriented x 3. Non-focal. Laboratory Laboratory Tests Test 02/03/17 11:38 02/04/17 06:59 White Blood Count 11.3 TH/MM3 Red Blood Count 4.62 MIL/MM3 Hemoglobin 14.3 GM/DL Hematocrit 42.6 % Mean Corpuscular Volume 92.3 FL Mean Corpuscular Hemoglobin 31.0 PG Mean Corpuscular Hemoglobin Concent 33.6 % Red Cell Distribution Width 12.9 % Platelet Count 274 TH/MM3 Mean Platelet Volume 8.4 FL Neutrophils (%) (Auto) 66.3 % Lymphocytes (%) (Auto) 23.3 % Monocytes (%) (Auto) 7.4 % Eosinophils (%) (Auto) 2.2 % Basophils (%) (Auto) 0.8 % Neutrophils # (Auto) 7.5 TH/MM3 Lymphocytes # (Auto) 2.6 TH/MM3 Monocytes # (Auto) 0.8 TH/MM3 Eosinophils # (Auto) 0.2 TH/MM3 Basophils # (Auto) 0.1 TH/MM3 CBC Comment DIFF FINAL Differential Comment Prothrombin Time 11.9 SEC 11.8 SEC Prothromb Time International Ratio 1.1 RATIO 1.1 RATIO Activated Partial Thromboplast Time 33.7 SEC 33.2 SEC Blood Urea Nitrogen 22 MG/DL Creatinine 1.37 MG/DL Random Glucose 95 MG/DL Calcium Level 8.8 MG/DL Sodium Level 138 MEQ/L Potassium Level 4.8 MEQ/L Chloride Level 105 MEQ/L Carbon Dioxide Level 23.9 MEQ/L Anion Gap 9 MEQ/L Estimat Glomerular Filtration Rate 53 ML/MIN Assessment and Plan Problem List: (1) S/P ablation of atrial fibrillation ICD Codes: Z98.890 - Other specified postprocedural states; Z86.79 - Personal history of other diseases of the circulatory system Status: Acute Plan: Normal sinus rhythm status post A. fib ablation. Continue amiodarone and beta Beck[place]. Follow-up with Dr. Morgan in 3 weeks. Discharge home. (2) Atrial fibrillation with RVR ICD Codes: I48.91 - Unspecified atrial fibrillation Status: Acute Plan: Normal sinus rhythm on telemetry this morning, no events seen overnight. Discussed Condition With Discussed with patient, RN, Dr. Morgan. Elsi Mulligan Feb 04, 2017 08:08
[2017-02-04] MEDS: DABIGATRAN ETEXILATE 150 MG CAP PO SCH (08:47)
[2017-02-04] MEDS ORDERED: AMIODARONE 200 MG TAB PO SCH (09:00)
[2017-02-04] MEDS ORDERED: PNEUMOCOCCAL POLYVALENT INJ 25 MCG/0.5 ML SYR IM ONE (09:00)
--- NOTE | 2017-02-04 11:17 | EKG ---
Date Performed: 02/04/2017 Time Performed: 07:50:56 PTAGE: 56 years EKG: Sinus rhythm with PVC(s) with 1st degree A-V block. Right axis deviation Right bundle branch block Anterolateral ST/T changes, consider ischemia Abnormal ECG PREVIOUS TRACING : 02/04/2017 05.54 No significant change from previous tracing noted. DOCTOR: Octavio Xavier Interpretating Date/Time 02/04/2017 11:16:25
--- NOTE | 2017-02-04 11:25 | EKG ---
Date Performed: 02/04/2017 Time Performed: 05:54:16 PTAGE: 56 years EKG: Sinus rhythm with PVC(s) with borderline 1st degree A-V block Right axis deviation Right bundle branch block Abno rmal ECG PREVIOUS TRACING : 02/03/2017 18.07 Compared to previous tracing, anterolateral T wave changes have improved. DOCTOR: Octavio Xavier Interpretating Date/Time 02/04/2017 11:23:57
--- NOTE | 2017-02-04 11:44 | EKG ---
Date Performed: 02/03/2017 Time Performed: 18:07:28 PTAGE: 56 years EKG: Sinus rhythm WITH OCCASIONAL VENTRICULAR PREMATURE COMPLEXES RIGHT BUNDLE BRANCH BLOCK LEFT POSTERIOR FASCICULAR BLOCK ANTERIOR T WAVE ABNORMALITY, CONSIDER ISCHEMIA ABNORMAL ECG PREVIOUS TRACING : 02/03/2017 11.51 Compared to previous tracing, sinus rhythm has replaced pos sible atrial fibrillation, heart rate has decreased, anterior T wave abnormality is now evident. DOCTOR: Octavio Xavier Interpretating Date/Time 02/04/2017 11:43:12
--- NOTE | 2017-02-04 11:54 | EKG ---
Date Performed: 02/03/2017 Time Performed: 11:51:56 PTAGE: 56 years EKG: Atrial fibrillation with rapid ventricular response with occasional PVC or aberrantly condu cted complex Right bundle branch block Right axis deviation Abnormal ECG PREVIOUS TRACING : 01/11/2017 11.04 Compared to previous tracing, heart rate has increased. DOCTOR: Octavio Xavier Interpretating Date/Time 02/04/2017 11:54:20
--- NOTE | 2017-02-06 14:52 | PD.CARD ---
Atrial Fibrillation Ablation PROCEDURE DATE: Feb 03, 2017 PROCEDURES PERFORMED: 1. Electrophysiology study on Isuprel infusion 2. CS cannulation 3. 3-D mapping 4. Transseptal approach 5. Right and left heart catheterization 6. Intracardiac echo 7. Radiofrequency ablation of atrial fibrillation 8. Pulmonary vein isolation 9. Posterior wall ablation 10. Mitral valve isolation 11. Mitral line creation 12. Left atrial tachycardia ablation 13. Roof line creation 14. Floor line creation 15. Anterior and posterior ablation INDICATIONS FOR THE PROCEDURE Mr. Guevara is a 56-year-old male with atrial fibrillation, CHF, tachycardia mediated cardiomyopathy, episodes of NSVT referred for electrophysiology study and ablation. The patient is symptomatic and on anticoagulation. The risks, the nature and the benefits of the procedure were clearly stated to him. The risks include pneumothorax, cardiac perforation, stroke, need for open heart surgery and even . The patient understood and agreed to proceed. DESCRIPTION OF THE PROCEDURE IN DETAIL As written informed consent was obtained prior to esophageal echocardiogram, the patient was kept on the table where he was prepped and draped in the usual sterile fashion. Conscious sedation was initiated and maintained throughout the procedure by the anesthesiologist. Once sedation was verified, the right and left inguinal areas were anesthetized with 2% Xylocaine. Using modified Seldinger technique, the left femoral vein was cannulated on three occasions, three guidewires were advanced. Over the wire a 6, 7 and a 10-[place] Hema[place] were advanced. Then the left femoral artery was cannulated on one occasion, one guidewire was advanced. Over the wire a 4-[place] Hemaquet was advanced. Then the right femoral vein was cannulated on one occasion, one guidewire was advanced. Over the wire a 8-[place] Hemaquet was advanced. Then under fluoroscopic guidance through the 6 and 7-[place] Hemaquet, two 5-[place] Rolando curved quadripolar electrophysiology catheters were advanced and placed around the His as well as coronary sinus. Basic interval was measured. The patient was in atrial fibrillation. Through the 10-[place] Hemaquet, a Cordis Mayer AcuNav intracardiac echo catheter was advanced and placed at the right atrium. Multiple view was obtained. There is no pericardial effusion, pulmonary vein was seen, atrial septal was visualized. Then the 8-[place] Hemaquet in the right femoral vein was exchanged for Agilis transseptal sheath that was placed all the way to the superior vena cava. Through the sheath a Perico needle was advanced, then the sheath, the dilator and the needle were progressed until foci engaged. Once engaged, the needle was advanced. RF was delivered for 2 seconds. I was able to cross into the left atrium. Once the needle crossed, the dilator was advanced. Once the dilator crossed, the sheath was advanced. Once the sheath crossed, the dilator and the needle were removed. At this point I did flood the system and fluid movement was seen in the left atrium the indicates the sheath is in good position. The patient already received 10,000 units of heparin. The goal is to keep an ACT around 350 during ablation. Then through the sheath a [place] 20 pulse circumferential catheter was advanced. Using Envision Blue Green endocardial solution mapping system, a two-dimensional configuration of the left atrium was obtained. Points were taken at the left superior and inferior veins, right superior and inferior veins, mitral valve, and appendages. Then through the sheath a [place] TactiCath 65cm 3.5mm irrigated tipped mapping and radiofrequency ablation catheter was advanced. Esophageal probe was placed temperature monitoring during ablation. When it increased to 0.5 degrees Celsius above baseline, I moved to a different area of the atrium. First I did isolate the left superior and inferior vein. I did make a big [place] around the veins. Posterior was ablated. Then a roof line was created, a floor line was created, a mitral line was isolated, then the mitral valve was isolated. At that point the patient was in left atrial tachycardia. I did create a line from the floor to the roof area, passing by the left atrial appendage. Then the right superior and inferior veins were isolated. Why ablating the septal area, patient converted back into sinus rhythm. Further burn was delivered in the area. I did remap the atrium. There is no significant signal in the atrium. At that point I did advance the circumferential catheter again into the vein. There was no signal into the vein , pacing from the vein showed no conduction to the atrium. At that point the procedure was complete. All catheters were removed, atrial septal sheath was exchanged for 9-[place] Hemaquet, intracardiac echo showed no pericardial effusion. There is still good flow in the pulmonary vein. The patient is going to be transferred to the recovery room. No incident report. The patient tolerated the procedure. Blood loss was minimal. FINDINGS 1. Electrocardiogram: At baseline the patient was in atrial fibrillation, post procedure the patient was in sinus rhythm. 2. Basic interval: Base cycle length was around 420. Post ablation she was around 900 milliseconds. AH at 76 and HV at 50 milliseconds. 3. Tachyarrhythmia: Atrial fibrillation was mapped and ablated. Atrial tachycardia was ablated. The ablation was successful. CONCLUSION Successful electrophysiology study, mapping, radiofrequency ablation of atrial fibrillation, left atrial tachycardia, pulmonary vein isolation, posterior ablation, mitral valve isolation, mitral line creation, roof line creation, floor line creation, left atrial tachycardia ablation. COMMENTS AND RECOMMENDATIONS The patient is going to be transferred to the telemetry unit. Will be observed and when stable can be discharged home. Polina Morgan MD Feb 06, 2017 14:52
== END 2017-02-04 12:53 | disposition home or self-care (01) ==
LOC: HDOC 10:57 → HDIC 10:57 → HCIN 19:20 → HDOC 02-04 12:53
PROVIDERS: ATTEND Internal Medicine Interventional Cardiology
DX: I47.1 Supraventricular tachycardia (principal); I48.91 Unspecified atrial fibrillation; I42.9 Cardiomyopathy, unspecified; I49.3 Ventricular premature depolarization; Z23 Encounter for immunization; Z01.818 Encounter for other preprocedural examination
CPT/HCPCS: 00537; 80048; 85002; 85025; 85610; 85730; 86850; 86900; 86901; 90471; 90732; 93005; 93613; 93656; 93662; C1730; C1731; C1732; C1759; C1766; C2630; J1644; J2250; J2720; G0009

== ENCOUNTER 2017-02-09 15:39 | Inpatient (IN) | payer BC ==
[~2017-02-09] VITALS: Ht 182.9 cm; Wt 103.5 kg
[2017-02-09] VITALS (8 sets, daily range): BP systolic 91–121; BP diastolic 59–80; PULSE 75–144; RESP 16–20; TEMP 97.4–97.6; O2SAT 94–98
[~2017-02-09 15:39] MED LIST changes: -DIGO0.12 PO; -VITAMINS
--- NOTE | 2017-02-09 16:45 | PD ---
HPI Chief Complaint: Cardiac Complaint Time Seen by Provider: 16:05 Travel History International Travel<30 days: No Contact w/Intl Traveler<30days: No Traveled to known affect area: No History of Present Illness HPI Is a 56-year-old man who presents to the emergency department complaining of palpitations and rapid heart rate. He's had a history of syncope, and what appears to be tachycardia-induced cardiomyopathy with an EF 20%. He had an ablation done last week and was discharged home with couple days ago. Over the past several days heart rate increased into the 120s and then progressively up to 140s. He went to Dr. Morgan's office and was referred here to the emergency department. We'll admitted for syncope also the heart catheter done a stress test. Found to have an EF of 20%. History Past Medical History Narrative Medical Arrhythmia and syncope Nonischemic cardiomyopathy, possibly tachycardia-induced, EF of 20% Social History Alcohol Use: Yes (2-3 A drinks usually on Tuesday and Tuesday. No alcohol over the last week) Tobacco Use: Yes Allergies-Medications (Allergen,Severity, Reaction): Coded Allergies: No Known Allergies (Verified , 01/10/17) Reported Meds & Prescriptions Reported Meds & Active Scripts Active Pradaxa (Dabigatran) 150 Mg Cap 150 Mg PO BID 30 Days Amiodarone (Amiodarone HCl) 200 Mg Tab 200 Mg PO DAILY Defibrillator Jacket (Device) 1 Ea Device 1 Ea EXTERNAL ONCE Energy = 150 Joules; VT Threshold = 150 BPM; VF Threshold = 200 BPM Use up to 90 days only Review of Systems Except as stated in HPI: all other systems reviewed are Neg Physical Exam Narrative GENERAL: Well-appearing 56-year-old man, no acute distress. SKIN: Focused skin assessment warm/dry. HEAD: Atraumatic. Normocephalic. EYES: Pupils equal and round. No scleral icterus. No injection or drainage. ENT: No nasal bleeding or discharge. Mucous membranes pink and moist. NECK: Trachea midline. No JVD. CARDIOVASCULAR: Heart rate rapid, regular, no murmurs. Weak peripheral pulses. RESPIRATORY: No accessory muscle use. Clear to auscultation. Breath sounds equal bilaterally. GASTROINTESTINAL: Abdomen soft, non-tender, nondistended. Hepatic and splenic margins not palpable. MUSCULOSKELETAL: No obvious deformities. No clubbing. No cyanosis. No edema. NEUROLOGICAL: Awake and alert. No obvious cranial nerve deficits. Motor grossly within normal limits. Normal speech. Data Data Last Documented VS Vital Signs Date Time Temp Pulse Resp B/P (MAP) Pulse Ox O2 Delivery O2 Flow Rate FiO2 02/09/17 18:08 113 118/59 02/09/17 18:00 18 97 Room Air 02/09/17 15:44 97.4 Orders Orders Complete Blood Count With Diff (02/09/17 16:33) Comprehensive Metabolic Panel (02/09/17 16:33) Magnesium (Mg) (02/09/17 16:33) Iv Access Insert/Monitor (02/09/17 16:33) Chest, Single Ap (02/09/17 ) Lorazepam Inj (Ativan Inj) (02/09/17 17:00) Vital Signs (Adult) Q15MX4,Q4H (02/09/17 17:41) Oscillograph Technician / Telemetry QUINN.Q8H (02/09/17 17:41) Cardiac Rhythm QUINN.Q8H (02/09/17 17:41) Notify Dr: Other (02/09/17 17:41) Diltiazem Inj (Cardizem Inj) (02/09/17 17:45) Diltiazem Inj (Cardizem Inj) (02/09/17 17:45) Electrocardiogram (02/09/17 16:18) Diet Heart Healthy (02/09/17 Dinner) Admit Order (Ed Use Only) (02/09/17 ) Labs Laboratory Tests Test 02/09/17 16:40 White Blood Count 9.5 TH/MM3 Red Blood Count 4.04 MIL/MM3 Hemoglobin 12.6 GM/DL Hematocrit 37.6 % Mean Corpuscular Volume 93.1 FL Mean Corpuscular Hemoglobin 31.1 PG Mean Corpuscular Hemoglobin Concent 33.4 % Red Cell Distribution Width 12.9 % Platelet Count 260 TH/MM3 Mean Platelet Volume 8.2 FL Neutrophils (%) (Auto) 65.0 % Lymphocytes (%) (Auto) 21.2 % Monocytes (%) (Auto) 9.5 % Eosinophils (%) (Auto) 3.6 % Basophils (%) (Auto) 0.7 % Neutrophils # (Auto) 6.2 TH/MM3 Lymphocytes # (Auto) 2.0 TH/MM3 Monocytes # (Auto) 0.9 TH/MM3 Eosinophils # (Auto) 0.3 TH/MM3 Basophils # (Auto) 0.1 TH/MM3 CBC Comment DIFF FINAL Differential Comment Blood Urea Nitrogen 24 MG/DL Creatinine 1.31 MG/DL Random Glucose 84 MG/DL Total Protein 7.3 GM/DL Albumin 3.7 GM/DL Calcium Level 8.4 MG/DL Magnesium Level 2.4 MG/DL Alkaline Phosphatase 65 U/L Aspartate Amino Transf (AST/SGOT) 15 U/L Alanine Aminotransferase (ALT/SGPT) 30 U/L Total Bilirubin 0.8 MG/DL Sodium Level 138 MEQ/L Potassium Level 4.2 MEQ/L Chloride Level 106 MEQ/L Carbon Dioxide Level 24.1 MEQ/L Anion Gap 8 MEQ/L Estimat Glomerular Filtration Rate 56 ML/MIN [facility] Medical Decision Making Medical Screen Exam Complete: Yes Emergency Medical Condition: Yes Interpretation(s) My review of EKG: Regular wide-complex rhythm at a rate of 144, right bundle branch block pattern, suspect a flutter, no definite evidence of acute ischemia. Differential Diagnosis A flutter, tachycardia, weakness, arrhythmia, other Narrative Course Medical decision making INITIAL: Is a 56-year-old man who presents to the emergency department complaining of palpitations and increased heart rate. Patient failed his ablation. He is a history of nonischemic cardiomyopathy, thought to be tachycardia-induced according to Dr. Morgan's notes. Diagnosis Primary Impression: Atrial fibrillation with RVR Admitting Information Admitting Physician Requests: Admit Nate Maxwell MD Feb 09, 2017 16:45
[2017-02-09 16:56] LABS: AUTOMATED NEUTROPHIL # 6.2 TH/MM3 (1.8-7.7); BASOPHIL # 0.1 TH/MM3 (0-0.2); BASOPHIL % 0.7 % (0.0-2.0); EOSINOPHIL # 0.3 TH/MM3 (0-0.4); EOSINOPHIL % 3.6 % (0.0-4.0); HEMATOCRIT 37.6 % (39.0-51.0); HEMO FLAGS DIFF FINAL; LYMPH % 21.2 % (9.0-44.0); MEAN CELL VOLUME 93.1 FL (80.0-100.0); MEAN CORPUSCULAR HEMOGLOBIN 31.1 PG (27.0-34.0); MEAN CORPUSCULAR HGB CONC 33.4 % (32.0-36.0); MONO % 9.5 % (0.0-8.0); PLATELET COUNT 260 TH/MM3 (150-450); RED BLOOD COUNT 4.04 MIL/MM3 (4.50-5.90); RED CELL DISTRIBUTION WIDTH 12.9 % (11.6-17.2); WHITE BLOOD COUNT 9.5 TH/MM3 (4.0-11.0)
[2017-02-09] MEDS ORDERED: LORazepam 2 MG/ML VIAL IV PUSH ONE (17:00)
[2017-02-09 17:16] LABS: ALT (GPT) 30 U/L (12-78); ANION GAP 8 MEQ/L (5-15); AST (GOT) 15 U/L (15-37); BICARBONATE 24.1 MEQ/L (21.0-32.0); BLOOD UREA NITROGEN 24 MG/DL (7-18); CHLORIDE 106 MEQ/L (98-107); GLOMERULAR FILTRATION RATE 56 ML/MIN (>89); MAGNESIUM 2.4 MG/DL (1.5-2.5); POTASSIUM 4.2 MEQ/L (3.5-5.1); SODIUM (NA) 138 MEQ/L (136-145)
[2017-02-09 17:18] LABS: ALKALINE PHOSPHATASE 65 U/L (45-117); TOTAL BILIRUBIN ADULT 0.8 MG/DL (0.2-1.0)
--- NOTE | 2017-02-09 17:29 | RADRPT ---
EXAM DATE/TIME: 02/09/2017 17:07 [facility] COMPARISON: CHEST SINGLE AP, January 10, 2017, 23:56. INDICATIONS : High heart rate. MEDICAL HISTORY : None. SURGICAL HISTORY : Appendectomy. Cardiac ablasion. ENCOUNTER: Initial ACUITY: 1 day PAIN SCORE: 0/10 LOCATION: Bilateral chest FINDINGS: The lungs are clear. The heart is minimally enlarged. The pulmonary vascularity is normal. There is n o evidence for infiltrate or failure. External pacer defibrillator evident The portion of the bony skeleton visualized is unremarkable. CONCLUSION: Compensated cardiomegaly otherwise negative Jevon Lozano MD FACR on February 09, 2017 at 17:27 Board Certified Radiologist. This report was verified electronically.
[2017-02-09] MEDS ORDERED: DILTIAZEM INJ 125 MG in SODIUM CHLORIDE 0.9% INJ 100 ML IV PRN (17:45)
[2017-02-09] MEDS ORDERED: DILTIAZEM HCL 25 MG/5 ML VIAL IV PUSH ONE (17:45)
[2017-02-09] MEDS: AMIODARONE 200 MG TAB PO SCH (19:15)
[2017-02-09] MEDS ORDERED: NALOXONE HCL 0.4 MG/ML AMP IV PUSH PRN (20:45)
[2017-02-09] MEDS ORDERED: SODIUM CHLORIDE 0.9% FLUSH 10 ML FLUSH IV FLUSH PRN (20:45)
[2017-02-09] MEDS: DABIGATRAN ETEXILATE 150 MG CAP PO SCH (21:00)
[2017-02-09] MEDS: SODIUM CHLORIDE 0.9% FLUSH 10 ML FLUSH IV FLUSH SCH (21:23)
--- NOTE | 2017-02-09 21:23 | MB ---
cc: ERAN GARCIA M.D. DATE OF CONSULTATION 02/09/2017 REASON FOR CONSULTATION Atrial tachycardia, atrial flutter, fast ventricular response. HISTORY OF PRESENT ILLNESS Mr. Guevara is a 56-year-old gentleman with congestive heart failure, cardiomyopathy, possible tachycardia mediated cardiomyopathy, previous atrial fibrillation ablation, defibrillatory admitted due to tachyarrhythmia. Heart rate very difficult to control. The patient already on amiodarone IV. Cardizem was initiated. I was consulted for further evaluation and management. The chart was reviewed. The patient was evaluated. ALLERGIES None SOCIAL HISTORY Negative for smoking and drinking. FAMILY HISTORY Noncontributory to his current medical condition. MEDICATIONS As mentioned before, the patient at home he is on: 1. Amiodarone 2. Pradaxa REVIEW OF SYSTEMS Currently the patient refers no chest pain, some shortness of breath, no chest discomfort, no vomiting, no fever. PHYSICAL EXAM Alert, fully oriented. VITAL SIGNS: His blood pressure 118/59, pulse on hospitalization was 144 currently is 94, respiratory rate 18 LUNGS: Ventilated. CARDIOVASCULAR: S1-S2 tachycardia. ABDOMEN: Obese. No mass. No bruit. EXTREMITIES: No edema. Electrocardiogram, atrial fibrillation versus atrial tachycardia, right bundle branch block, left anterior fascicular block, diffuse ST changes. LABORATORY DATA Hemoglobin is 12, white blood cells 9.5. Potassium 4.2, creatinine is 1.31, INR not available. ASSESSMENT AND RECOMMENDATIONS Mr. Guevara has atrial fibrillation and atrial tachycardia. Heart rate is very difficult to control. At this point, he is post-ablation. This is left atrial tachyarrhythmia. This is a recent ablation. My recommendation at this point is cardioversion and continue with current medical management. The patient's carolyn inhibitor was held because of the patient's severe low blood pressure. It will be reinitiated during hospitalization. I will try Entresto. The case extensively discussed with him. Keep him n.p.o. after midnight. Cardioversion in the morning. MD AMANDA Partida/DANIELLE /7:02 PM /9:11 PM
[2017-02-10] VITALS (25 sets, daily range): BP systolic 92–115; BP diastolic 52–77; PULSE 63–104; RESP 16–17; TEMP 97.4–97.9; O2SAT 95–97
--- NOTE | 2017-02-10 02:44 | HHI.HP ---
HPI Service [facility] Hospitalists Primary Care Physician No Primary Care Physician Admission Diagnosis Afib RVR Diagnoses: Chief Complaint: increased heart rate Travel History International Travel<30 Days: No Contact w/Intl Traveler <30 Da: No Traveled to Known Affected Are: No History of Present Illness 56 y/o male with a history of CHF (EF 20%), Cardiomyopathy, possible tachycardia mediated, and afib s/p ablation 1 week ago presented to the ED after being sent from Dr. Morgan's office for evaluation. Patient states he was discharged on and over the weekend he developed hear palpitations and his HR was in the 140s. He went to Dr. Morgan's office today and he recommended coming to the hospital. Dr. Morgan is planning a cardioversion in the am, and per Dr. Morgan's note patient's afib has been difficult to control. Patient is currently wearing a life vest and states it has not fired. He denies any chest pain, sob, dizziness, nausea, fever or chills. Review of Systems Except as stated in HPI: all other systems reviewed are Neg Past Family Social History Past Medical History CHF EF 20% Cardiomyopathy, possible tachycardia mediated Prior afib ablation Colon polyps Nephrolithiasis Past Surgical History Hernia repair as child Tympanostomy tubes as a child Appendectomy Colonoscopy 6 months ago Reported Medications Reported Meds & Active Scripts Active Pradaxa (Dabigatran) 150 Mg Cap 150 Mg PO BID 30 Days Amiodarone (Amiodarone HCl) 200 Mg Tab 200 Mg PO DAILY Defibrillator Jacket (Device) 1 Ea Device 1 Ea EXTERNAL ONCE Energy = 150 Joules; VT Threshold = 150 BPM; VF Threshold = 200 BPM Use up to 90 days only Allergies: Coded Allergies: No Known Allergies (Verified , 01/10/17) Active Ordered Medications Current Medications Medications (Trade) Dose Ordered Sig/Mohan Route Start Time Stop Time Status Last Admin Diltiazem HCl 125 mg/Sodium Chloride 125 ml @ 5 mls/hr TITRATE PRN IV 02/09/17 17:45 02/09/17 18:08 (Cordarone) 200 mg DAILY PO 02/09/17 19:15 (Pradaxa) 150 mg BID PO 02/09/17 21:00 (NS Flush) 2 ml UNSCH PRN IV FLUSH 02/09/17 20:45 (NS Flush) 2 ml BID IV FLUSH 02/09/17 21:00 02/09/17 21:23 (Narcan Inj) 0.4 mg UNSCH PRN IV PUSH 02/09/17 20:45 Family History Mother with atrial fibrillation and lung problems (had only one lung) Brother with lactose intolerance Social History Tobacco: Quit 1 month ago, Prior smoker cigarettes 1 to 2 PPD Alcohol: drinks a couple of mixed drinks mostly on weekends Illicit Drugs: denies IVD use, denies cocaine Originally from [place] Physical Exam Vital Signs Vital Signs Date Time Temp Pulse Resp B/P (MAP) Pulse Ox O2 Delivery O2 Flow Rate FiO2 02/10/17 02:05 67 02/10/17 01:01 71 02/10/17 00:49 72 02/09/17 23:11 97.6 76 16 100/71 (81) 98 02/09/17 23:00 85 02/09/17 22:45 74 16 96/64 (75) 98 02/09/17 21:00 84 18 94/65 (75) 97 Room Air 02/09/17 19:00 75 16 91/63 (72) 94 Room Air 02/09/17 18:08 113 118/59 02/09/17 18:00 115 18 118/59 (78) 97 Room Air 02/09/17 16:18 144 18 121/63 (82) 97 Room Air 02/09/17 16:18 144 18 Room Air 02/09/17 15:44 97.4 144 20 119/80 (93) 98 Room Air Physical Exam GENERAL: This is a well-nourished, well-developed patient, in no apparent distress. SKIN: No rashes, ecchymoses or lesions. Cool and dry. HEAD: Atraumatic. Normocephalic. EYES: Pupils equal round and reactive. ENT: Nose without bleeding, purulent drainage or septal hematoma.Airway patent. NECK: Trachea midline. No JVD or lymphadenopathy. CARDIOVASCULAR: Regular rate and rhythm without murmurs, gallops, or rubs. RESPIRATORY: Clear to auscultation. Breath sounds equal bilaterally. No wheezes , rales, or rhonchi. GASTROINTESTINAL: Abdomen soft, non-tender, nondistended/ MUSCULOSKELETAL: Extremities without clubbing, cyanosis, or edema. No joint tenderness, effusion, or edema noted. No calf tenderness. NEUROLOGICAL: Awake and alert. Motor and sensory grossly within normal limits. . Normal speech. Laboratory Laboratory Tests Test 02/09/17 16:40 White Blood Count 9.5 Red Blood Count 4.04 Hemoglobin 12.6 Hematocrit 37.6 Mean Corpuscular Volume 93.1 Mean Corpuscular Hemoglobin 31.1 Mean Corpuscular Hemoglobin Concent 33.4 Red Cell Distribution Width 12.9 Platelet Count 260 Mean Platelet Volume 8.2 Neutrophils (%) (Auto) 65.0 Lymphocytes (%) (Auto) 21.2 Monocytes (%) (Auto) 9.5 Eosinophils (%) (Auto) 3.6 Basophils (%) (Auto) 0.7 Neutrophils # (Auto) 6.2 Lymphocytes # (Auto) 2.0 Monocytes # (Auto) 0.9 Eosinophils # (Auto) 0.3 Basophils # (Auto) 0.1 CBC Comment DIFF FINAL Differential Comment Blood Urea Nitrogen 24 Creatinine 1.31 Random Glucose 84 Total Protein 7.3 Albumin 3.7 Calcium Level 8.4 Magnesium Level 2.4 Alkaline Phosphatase 65 Aspartate Amino Transf (AST/SGOT) 15 Alanine Aminotransferase (ALT/SGPT) 30 Total Bilirubin 0.8 Sodium Level 138 Potassium Level 4.2 Chloride Level 106 Carbon Dioxide Level 24.1 Anion Gap 8 Estimat Glomerular Filtration Rate 56 Result Diagram: 02/09/17 1640 02/09/17 1640 Imaging Last Impressions Chest X-Ray 02/09/17 0000 Signed Impressions: Service Date/Time: Thursday, February 09, 2017 17:07 - CONCLUSION: Compensated cardiomegaly otherwise negative Jevon Lozano MD FACR Caprini VTE Risk Assessment Caprini VTE Risk Assessment: Mod/High Risk (score >= 2) Caprini Risk Assessment Model Point Value = 1 Point Value = 2 Point Value = 3 Point Value = 5 Age 41-60 Minor surgery BMI > 25 kg/m2 Swollen legs Varicose veins or History of unexplained or recurrent spontaneous Oral contraceptives or hormone replacement Sepsis (< 1 month) Serious lung disease, including pneumonia (< 1 month) Abnormal pulmonary function Acute myocardial infarction Congestive heart failure (< 1 month) History of inflammatory bowel disease Medical patient at bed rest Age 61-74 Arthroscopic surgery Major open surgery (> 45 min) Laparoscopic surgery (> 45 min) Malignancy Confined to bed (> 72 hours) Immobilizing plaster cast Central venous access Age >= 75 History of VTE Family history of VTE Factor V Leiden Prothrombin [id number] Lupus anticoagulant Anticardiolipin antibodies Elevated serum homocysteine Heparin-induced thrombocytopenia Other congenital or acquired thrombophilia Stroke (< 1 month) Elective arthroplasty Hip, pelvis, or leg fracture Acute spinal cord injury (< 1 month) Prophylaxis Regimen Total Risk Factor Score Risk Level Prophylaxis Regimen 0-1 Low Early ambulation 2 Moderate Order ONE of the following: *Sequential Compression Device (SCD) *Heparin 5000 units SQ BID 3-4 Higher Order ONE of the following medications: *Heparin 5000 units SQ TID *Enoxaparin/Lovenox 40 mg SQ daily (WT < 150 kg, CrCl > 30 mL/min) *Enoxaparin/Lovenox 30 mg SQ daily (WT < 150 kg, CrCl > 10-29 mL/min) *Enoxaparin/Lovenox 30 mg SQ BID (WT < 150 kg, CrCl > 30 mL/min) AND/OR *Sequential Compression Device (SCD) 5 or more Highest Order ONE of the following medications: *Heparin 5000 units SQ TID (Preferred with Epidurals) *Enoxaparin/Lovenox 40 mg SQ daily (WT < 150 kg, CrCl > 30 mL/min) *Enoxaparin/Lovenox 30 mg SQ daily (WT < 150 kg, CrCl > 10-29 mL/min) *Enoxaparin/Lovenox 30 mg SQ BID (WT < 150 kg, CrCl > 30 mL/min) AND *Sequential Compression Device (SCD) Assessment and Plan Problem List: (1) CHF (congestive heart failure) ICD Code: I50.9 - Heart failure, unspecified Status: Chronic (2) Atrial fibrillation with RVR ICD Code: I48.91 - Unspecified atrial fibrillation Status: Acute Assessment and Plan 56 y/o male with a history of CHF (EF 20%), Cardiomyopathy, possible tachycardia mediated, and afib s/p ablation 1 week ago presented to the ED after being sent from Dr. Morgan's office for evaluation. Aflutter with RVR, s/p recent ablation EKG reviewed shows aflutter with RVR -Cont cardizem drip and amiodarone -Consult cardiology, Dr. Morgan is following -NPO for cardioversion in Am CHF, chronic, systolic, EF is 20%, BNP 199 -Maintain life vest -Monitor for fluid overload DVT prophylaxis: Pradaxa Discussed Condition With Patient and RN Physician Certification 2 Midnight Certification Type: Admission for Inpatient Services Order for Inpatient Services The services are ordered in accordance with Medicare regulations or non- Medicare payer requirements, as applicable. In the case of services not specified as inpatient-only, they are appropriately provided as inpatient services in accordance with the 2-midnight benchmark. Estimated LOS (days): 2 days is the estimated time the patient will need to remain in the hospital, assuming treatment plan goals are met and no additional complications. Post-Hospital Plan: Patt Garvey Feb 10, 2017 02:44
[2017-02-10] MEDS: SODIUM CHLORIDE 0.9% FLUSH 10 ML FLUSH IV FLUSH SCH ×2 (09:00→21:11)
[2017-02-10] MEDS: DABIGATRAN ETEXILATE 150 MG CAP PO SCH ×2 (10:51→21:11)
[2017-02-10] MEDS: AMIODARONE 200 MG TAB PO SCH (10:51)
--- NOTE | 2017-02-10 11:44 | HHI.PR ---
Subjective Remarks Feeling better. Objective Vital Signs Date Time Temp Pulse Resp B/P (MAP) Pulse Ox O2 Delivery O2 Flow Rate FiO2 02/10/17 06:15 63 02/10/17 05:05 63 02/10/17 04:00 69 02/10/17 03:25 97.4 66 16 96/52 (67) 95 02/10/17 02:05 67 02/10/17 01:01 71 02/10/17 00:49 72 02/09/17 23:11 97.6 76 16 100/71 (81) 98 02/09/17 23:00 85 02/09/17 22:45 74 16 96/64 (75) 98 02/09/17 21:00 84 18 94/65 (75) 97 Room Air 02/09/17 19:00 75 16 91/63 (72) 94 Room Air 02/09/17 18:08 113 118/59 02/09/17 18:00 115 18 118/59 (78) 97 Room Air 02/09/17 16:18 144 18 121/63 (82) 97 Room Air 02/09/17 16:18 144 18 Room Air 02/09/17 15:44 97.4 144 20 119/80 (93) 98 Room Air I/O 02/09/17 02/09/17 02/09/17 02/10/17 02/10/17 02/10/17 06:59 14:59 22:59 06:59 14:59 22:59 Intake Total 240 ml Output Total 780 ml Balance -540 ml Intake Oral 240 ml Output Urine Total 780 ml Result Diagram: 02/09/17 1640 02/09/17 1640 Imaging Alert, fully oriented, in bed Lungs: ventilated Heart: S1, S2 regular, no gallop Abdomen: soft, no mass Ext: no edema Last Impressions Chest X-Ray 02/09/17 0000 Signed Impressions: Service Date/Time: Thursday, February 09, 2017 17:07 - CONCLUSION: Compensated cardiomegaly otherwise negative Jevon Lozano MD FACR Current Medications Medications (Trade) Dose Ordered Sig/Mohan Route Start Time Stop Time Status Last Admin Diltiazem HCl 125 mg/Sodium Chloride 125 ml @ 5 mls/hr TITRATE PRN IV 02/09/17 17:45 02/09/17 18:08 (Cordarone) 200 mg DAILY PO 02/09/17 19:15 02/10/17 10:51 (Pradaxa) 150 mg BID PO 02/09/17 21:00 02/10/17 10:51 (NS Flush) 2 ml UNSCH PRN IV FLUSH 02/09/17 20:45 (NS Flush) 2 ml BID IV FLUSH 02/09/17 21:00 02/09/17 21:23 (Narcan Inj) 0.4 mg UNSCH PRN IV PUSH 02/09/17 20:45 Assessment and Plan Problem List: (1) Atrial fibrillation with RVR ICD Codes: I48.91 - Unspecified atrial fibrillation Status: Acute Plan: Back into sinus rhythm. Doing far better Patient concern about his meds I had a long conversation with him and his . I discussed his condition with him and the need to stay on his beds Apparently there was an incident with the nurse which I addressed. Will continue on amio. Cardizem PO will be added Patient aware he may need at least a second ablation (2) CHF (congestive heart failure) ICD Codes: I50.9 - Heart failure, unspecified Status: Chronic Plan: On optimal medical management Possible tachycardia mediated cardiomyopathy. Will repeat echo in 2 months Continue with Polina Abel MD Feb 10, 2017 11:44
[2017-02-10 11:47] LABS: PROTHROMBIN TIME - PATIENT 11.4 SEC (9.8-11.6)
[2017-02-10 12:07] LABS: AUTOMATED NEUTROPHIL # 5.2 TH/MM3 (1.8-7.7); BASOPHIL # 0.1 TH/MM3 (0-0.2); BASOPHIL % 0.9 % (0.0-2.0); EOSINOPHIL # 0.4 TH/MM3 (0-0.4); EOSINOPHIL % 4.6 % (0.0-4.0); HEMATOCRIT 38.2 % (39.0-51.0); HEMO FLAGS DIFF FINAL; LYMPH % 20.6 % (9.0-44.0); LYMPHOCYTE # 1.7 TH/MM3 (1.0-4.8); MEAN CELL VOLUME 93.4 FL (80.0-100.0); MEAN CORPUSCULAR HEMOGLOBIN 31.4 PG (27.0-34.0); MEAN CORPUSCULAR HGB CONC 33.6 % (32.0-36.0); MONO % 9.5 % (0.0-8.0); NEUT % 64.4 % (16.0-70.0); PLATELET COUNT 226 TH/MM3 (150-450); RED BLOOD COUNT 4.09 MIL/MM3 (4.50-5.90); RED CELL DISTRIBUTION WIDTH 12.9 % (11.6-17.2); WHITE BLOOD COUNT 8.1 TH/MM3 (4.0-11.0)
[2017-02-10] MEDS: DILTIAZEM-CD 120 MG CAP ER PO SCH (12:21)
[2017-02-10 12:33] LABS: BICARBONATE 26.2 MEQ/L (21.0-32.0); POTASSIUM 4.4 MEQ/L (3.5-5.1)
--- NOTE | 2017-02-10 14:17 | EKG ---
Date Performed: 02/09/2017 Time Performed: 16:18:31 PTAGE: 56 years EKG: Supraventricular tachycardia with rate of 144 which may be sinus tachycardia vs another par oxysmal tachycardia Right bundle branch block Left posterior fascicular block Compared to the previou s tracing heart rate is much faster ABNORMAL ECG PREVIOUS TRACING : 02/04/2017 07.50 DOCTOR: Sandro Goss Interpretating Date/Time 02/10/2017 14:16:26
--- NOTE | 2017-02-10 14:19 | EKG ---
Date Performed: 02/10/2017 Time Performed: 08:35:04 PTAGE: 56 years EKG: Sinus rhythm with PVC(s) with 1st degree A-V block. Right axis deviation Right bundle branch block Compared to th e previous tracing heart rate has changed from 144 to 71. PVCs are new. Abnormal ECG PREVIOUS TRACING : 02/09/2017 16.18 DOCTOR: Sandro Goss Interpretating Date/Time 02/10/2017 14:17:06
[2017-02-11] VITALS (28 sets, daily range): BP systolic 88–113; BP diastolic 62–77; PULSE 71–125; RESP 16–18; TEMP 97.3–98.1; O2SAT 95–98
[2017-02-11 08:05] LABS: HEMATOCRIT 36.1 % (39.0-51.0); REVIEW FLAG FINAL
[2017-02-11] MEDS: AMIODARONE 200 MG TAB PO SCH (09:54)
[2017-02-11] MEDS: DILTIAZEM-CD 120 MG CAP ER PO SCH (09:54)
[2017-02-11] MEDS: SODIUM CHLORIDE 0.9% FLUSH 10 ML FLUSH IV FLUSH SCH ×2 (09:54→21:12)
[2017-02-11] MEDS: DABIGATRAN ETEXILATE 150 MG CAP PO SCH ×2 (09:54→21:10)
--- NOTE | 2017-02-11 10:39 | HHI.PR ---
Subjective Remarks Patient reports is feeling okay. No heart palpitations. No chest pain or shortness of breath. Discussed with RN. Heart rate controlled. States he had a small amount of oozing from his hemorrhoid. Objective Vitals Vital Signs Date Time Temp Pulse Resp B/P (MAP) Pulse Ox O2 Delivery O2 Flow Rate FiO2 02/11/17 10:00 91 02/11/17 08:00 74 02/11/17 07:30 97.3 87 18 98/77 (84) 95 02/11/17 06:00 76 02/11/17 05:00 71 02/11/17 04:00 72 02/11/17 03:30 98.0 75 16 88/62 (71) 96 02/11/17 03:00 74 02/11/17 02:00 78 02/11/17 01:00 74 02/11/17 00:00 84 02/10/17 23:30 97.9 88 16 104/66 (79) 97 02/10/17 23:00 88 02/10/17 22:00 104 02/10/17 21:00 90 02/10/17 20:00 96 02/10/17 20:00 97.7 95 16 103/71 (82) 96 02/10/17 19:00 100 02/10/17 18:07 97 02/10/17 17:26 94 02/10/17 16:00 86 02/10/17 15:00 89 02/10/17 15:00 97.5 87 16 113/73 (86) 97 02/10/17 14:03 81 104/66 02/10/17 14:00 82 02/10/17 13:00 84 02/10/17 12:00 84 02/10/17 11:00 97.6 81 17 115/77 (90) 97 02/10/17 11:00 77 I/O 02/10/17 02/10/17 02/10/17 02/11/17 02/11/17 02/11/17 07:00 15:00 23:00 07:00 15:00 23:00 Intake Total 240 ml 99.8 ml 720 ml 720 ml Output Total 780 ml 850 ml 1325 ml Balance -540 ml 99.8 ml -130 ml -605 ml Intake Oral 240 ml 720 ml 720 ml IV Total 99.8 ml Output Urine Total 780 ml 850 ml 1325 ml # Voids 2 # Bowel Movements 0 Result Diagram: 02/11/17 0652 02/10/17 1028 Imaging Last Impressions Chest X-Ray 02/09/17 0000 Signed Impressions: Service Date/Time: Thursday, February 09, 2017 17:07 - CONCLUSION: Compensated cardiomegaly otherwise negative Jevon Lozano MD FACR Objective Remarks GENERAL: This is a well-nourished, well-developed patient, in no apparent distress. CARDIOVASCULAR: Normal rate and regular rhythm without murmurs, gallops, or rubs. RESPIRATORY: Good respiratory efforts. Breath sounds equal and clear to auscultation bilaterally. GASTROINTESTINAL: Abdomen soft, non-tender, non-distended. Normal active bowel sounds. Small amount of oozing from an external hemorrhoid on the left. MUSCULOSKELETAL: Extremities without cyanosis, or edema. NEURO: Alert & Oriented x4 to person, place, time, situation. Moves all ext x4 PSYCH: Appropriate mood and affect. A/P Problem List: (1) CHF (congestive heart failure) ICD Code: I50.9 - Heart failure, unspecified Status: Chronic (2) Atrial fibrillation with RVR ICD Code: I48.91 - Unspecified atrial fibrillation Status: Acute Assessment and Plan 56 y/o male with a history of CHF (EF 20%), Cardiomyopathy, possible tachycardia mediated, and afib s/p ablation 1 week ago presented to the ED after being sent from frothing machine operator, Dr. Morgan's office for evaluation. Aflutter with RVR, s/p recent ablation -Cardiology following, patient is back in sinus rhythm. Continue amiodarone and oral Cardizem per cardiology. On Pradaxa CHF, chronic, systolic, EF is 20%, BNP 199 -Maintain life vest -Monitor for fluid overload Bleeding hemorrhoid: very small amount of blood. DW RN to apply dressing and monitor. Advised the patient on high-fiber diet. Stool softener PRN. DVT prophylaxis: Pradaxa Discharge Planning Pending clearance from cardiology. Yesenia Hayes MD Feb 11, 2017 10:39
[2017-02-11] MEDS ORDERED: MAGNESIUM HYDROXIDE SUSP 30 ML CUP PO PRN (12:00)
[2017-02-11] MEDS ORDERED: BISACODYL 10 MG SUPP RECTAL PRN (12:00)
[2017-02-11] MEDS ORDERED: SENNOSIDES 8.6 MG TAB PO PRN (12:00)
[2017-02-11] MEDS ORDERED: LACTULOSE SYRUP 20 GM/30 ML CUP PO PRN (12:00)
--- NOTE | 2017-02-11 16:13 | HHI.PR ---
Subjective Remarks Feeling better. Objective Vital Signs Date Time Temp Pulse Resp B/P (MAP) Pulse Ox O2 Delivery O2 Flow Rate FiO2 02/11/17 15:27 97.4 100 16 90/65 (73) 96 02/11/17 14:01 96 02/11/17 13:00 107 02/11/17 12:00 94 02/11/17 11:30 98.1 88 18 111/65 (80) 97 02/11/17 11:11 98 02/11/17 10:00 91 02/11/17 09:00 94 02/11/17 08:00 74 02/11/17 07:30 97.3 87 18 98/77 (84) 95 02/11/17 07:00 74 02/11/17 06:00 76 02/11/17 05:00 71 02/11/17 04:00 72 02/11/17 03:30 98.0 75 16 88/62 (71) 96 02/11/17 03:00 74 02/11/17 02:00 78 02/11/17 01:00 74 02/11/17 00:00 84 02/10/17 23:30 97.9 88 16 104/66 (79) 97 02/10/17 23:00 88 02/10/17 22:00 104 02/10/17 21:00 90 02/10/17 20:00 96 02/10/17 20:00 97.7 95 16 103/71 (82) 96 02/10/17 19:00 100 02/10/17 18:07 97 02/10/17 17:26 94 I/O 02/10/17 02/10/17 02/10/17 02/11/17 02/11/17 02/11/17 07:00 15:00 23:00 07:00 15:00 23:00 Intake Total 240 ml 99.8 ml 720 ml 720 ml Output Total 780 ml 850 ml 1325 ml Balance -540 ml 99.8 ml -130 ml -605 ml Intake Oral 240 ml 720 ml 720 ml IV Total 99.8 ml Output Urine Total 780 ml 850 ml 1325 ml # Voids 2 # Bowel Movements 0 Result Diagram: 02/11/17 0652 02/10/17 1028 Imaging Alert, fully oriented Lungs: ventilated Heart: s1, S2 regular, no gallop Abdomen: soft, no mass Ext: No edema Current Medications Medications (Trade) Dose Ordered Sig/Mohan Route Start Time Stop Time Status Last Admin (Cordarone) 200 mg DAILY PO 02/09/17 19:15 02/11/17 09:54 (Pradaxa) 150 mg BID PO 02/09/17 21:00 02/11/17 09:54 (NS Flush) 2 ml UNSCH PRN IV FLUSH 02/09/17 20:45 (NS Flush) 2 ml BID IV FLUSH 02/09/17 21:00 02/11/17 09:54 (Narcan Inj) 0.4 mg UNSCH PRN IV PUSH 02/09/17 20:45 (Cardizem Cd) 120 mg DAILY PO 02/10/17 11:45 02/11/17 09:54 (Milk Of Magnesia Liq) 30 ml Q12H PRN PO 02/11/17 12:00 (Senokot) 17.2 mg Q12H PRN PO 02/11/17 12:00 (Dulcolax Supp) 10 mg DAILY PRN RECTAL 02/11/17 12:00 (Lactulose Liq) 30 ml DAILY PRN PO 02/11/17 12:00 Assessment and Plan Problem List: (1) Atrial fibrillation with RVR ICD Codes: I48.91 - Unspecified atrial fibrillation Status: Acute Plan: In sinus rhythm HR ok Can be DH I will see him at my office in 3-4 weeks. (2) CHF (congestive heart failure) ICD Codes: I50.9 - Heart failure, unspecified Status: Chronic Plan: On optimal medical management Possible tachycardia mediated cardiomyopathy. Will repeat echo in 2 months Continue with Polina Abel MD Feb 11, 2017 16:13
[2017-02-11] MEDS ORDERED: CARD120C4 PO (17:13)
--- NOTE | 2017-02-11 17:16 | HHI.DCPOC ---
Discharge Care Plan Diagnosis: (1) Atrial fibrillation with RVR (2) CHF (congestive heart failure) (3) NICM (nonischemic cardiomyopathy) Goals to Promote Your Health * To prevent worsening of your condition and complications * To maintain your health at the optimal level Directions to Meet Your Goals Take your medications as prescribed Follow your dietary instruction Follow activity as directed Keep your appointments as scheduled Take your immunizations and boosters as scheduled If your symptoms worsen call your PCP, if no PCP go to Urgent Care Center or Emergency Room Smoking is Dangerous to Your Health. Avoid second hand smoke Call the 24-hour hour crisis hotline for domestic abuse at Yesenia Hayes MD Feb 11, 2017 17:16
--- NOTE | 2017-02-11 17:18 | HHI.DS ---
Discharge Summary Admission Date Feb 09, 2017 at 18:52 Discharge Date: Feb 11, 2017 Admitting Diagnosis Afib RVR (1) CHF (congestive heart failure) ICD Code: I50.9 - Heart failure, unspecified Status: Chronic (2) Atrial fibrillation with RVR ICD Code: I48.91 - Unspecified atrial fibrillation Status: Acute Procedures None Brief History - From Admission 56 y/o male with a history of CHF (EF 20%), Cardiomyopathy, possible tachycardia mediated, and afib s/p ablation 1 week ago presented to the ED after being sent from Dr. Morgan's office for evaluation. Patient states he was discharged on and over the weekend he developed hear palpitations and his HR was in the 140s. He went to Dr. Morgan's office today and he recommended coming to the hospital. Dr. Morgan is planning a cardioversion in the am, and per Dr. Morgan's note patient's afib has been difficult to control. Patient is currently wearing a life vest and states it has not fired. He denies any chest pain, sob, dizziness, nausea, fever or chills. CBC/BMP: 02/11/17 0652 02/10/17 1028 Significant Findings Laboratory Tests Test 02/09/17 16:40 02/10/17 10:28 02/11/17 06:52 Red Blood Count 4.04 MIL/MM3 (4.50-5.90) 4.09 MIL/MM3 (4.50-5.90) Hemoglobin 12.6 GM/DL (13.0-17.0) 12.8 GM/DL (13.0-17.0) 12.1 GM/DL (13.0-17.0) Hematocrit 37.6 % (39.0-51.0) 38.2 % (39.0-51.0) 36.1 % (39.0-51.0) Monocytes (%) (Auto) 9.5 % (0.0-8.0) 9.5 % (0.0-8.0) Blood Urea Nitrogen 24 MG/DL (7-18) 20 MG/DL (7-18) Creatinine 1.31 MG/DL (0.60-1.30) Calcium Level 8.4 MG/DL (8.5-10.1) Estimat Glomerular Filtration Rate 56 ML/MIN (>89) 62 ML/MIN (>89) Eosinophils (%) (Auto) 4.6 % (0.0-4.0) PE at Discharge GENERAL: This is a well-nourished, well-developed patient, in no apparent distress. CARDIOVASCULAR: Normal rate and regular rhythm without murmurs, gallops, or rubs. RESPIRATORY: Good respiratory efforts. Breath sounds equal and clear to auscultation bilaterally. GASTROINTESTINAL: Abdomen soft, non-tender, non-distended. Normal active bowel sounds. Small amount of oozing from an external hemorrhoid on the left. MUSCULOSKELETAL: Extremities without cyanosis, or edema. NEURO: Alert & Oriented x4 to person, place, time, situation. Moves all ext x4 PSYCH: Appropriate mood and affect. Hospital Course 56 y/o male with a history of CHF (EF 20%), Cardiomyopathy, possible tachycardia mediated, and afib s/p ablation 1 week ago presented to the ED after being sent from sales expert home theater, Dr. Morgan's office for evaluation. Evaluation and treatment course detailed below: Aflutter with RVR, s/p recent ablation -Cardiology following, patient is back in sinus rhythm. Continue amiodarone and oral Cardizem per cardiology. On Pradaxa. He will follow up outpatient with cardiology. CHF, chronic, systolic, EF is 20%, BNP 199 -Maintain life vest Pt Condition on Discharge: Good Discharge Disposition: Discharge Home Discharge Time: <= 30 minutes Discharge Instructions DIET: Follow Instructions for: Heart Healthy Diet Activities you can perform: Regular-No Restrictions Follow up Referrals: Cardiology - 3 Weeks with Polina Morgan MD New Medications: Diltiazem CD 24 HR (Cardizem CD 24 HR) 120 Mg Caper 120 MG PO DAILY, #30 CAP Continued Medications: Amiodarone (Amiodarone) 200 Mg Tab 200 MG PO DAILY for afib, #30 TAB Dabigatran (Pradaxa) 150 Mg Cap 150 MG PO BID for afib for 30 Days, CAP Yesenia Hayes MD Feb 11, 2017 17:18
[2017-02-12] VITALS (10 sets, daily range): BP systolic 89–107; BP diastolic 59–78; PULSE 66–81; RESP 16–18; TEMP 97.6–97.7; O2SAT 93–97
[2017-02-12] MEDS ORDERED: PRAD150C PO ×2 (07:46→07:50)
[2017-02-12] MEDS ORDERED: AMIO200T PO ×2 (07:46→07:50)
[2017-02-12] MEDS: AMIODARONE 200 MG TAB PO SCH (08:38)
[2017-02-12] MEDS: SODIUM CHLORIDE 0.9% FLUSH 10 ML FLUSH IV FLUSH SCH (08:38)
[2017-02-12] MEDS: DILTIAZEM-CD 120 MG CAP ER PO SCH (08:38)
[2017-02-12] MEDS: DABIGATRAN ETEXILATE 150 MG CAP PO SCH (08:38)
== END 2017-02-12 10:43 | disposition home or self-care (01) | DRG 309 ==
LOC: NEPE 15:39 → NEDA 18:52 → HCIN 22:48
PROVIDERS: ADMIT Family Medicine; ATTEND Family Medicine
DX: I48.91 Unspecified atrial fibrillation (principal); I50.22 Chronic systolic (congestive) heart failure; I42.9 Cardiomyopathy, unspecified; I47.1 Supraventricular tachycardia; I48.92 Unspecified atrial flutter; I45.2 Bifascicular block; K64.9 Unspecified hemorrhoids; Z87.891 Personal history of nicotine dependence
CPT/HCPCS: 71010; 80048; 80053; 83735; 85014; 85018; 85025; 85610; 93005; 96374

== ENCOUNTER 2017-03-01 13:18 | Inpatient (IN) | payer BC ==
[2017-03-01] VITALS (14 sets, daily range): BP systolic 76–125; BP diastolic 51–79; PULSE 76–133; RESP 16–20; TEMP 97.7–98.9; O2SAT 93–99
[~2017-03-01] VITALS: Ht 182.9 cm; Wt 105.0 kg
[~2017-03-01 13:18] MED LIST changes: +CARD120C4 PO
--- NOTE | 2017-03-01 13:27 | PD ---
HPI Chief Complaint: Cardiac Complaint Time Seen by Provider: 13:27 Travel History International Travel<30 days: No Contact w/Intl Traveler<30days: No Traveled to known affect area: No History of Present Illness HPI 56-year-old male with history of irregular heart rate and tachycardia is sent in by the motor inspection mechanic Dr. Morgan, for irregular heartbeat. Patient has been under his care since December of this year. Patient recently had a appointment with Dr. Morgan this morning who requested he be seen in the emergency department for admission for his ongoing irregular heart rate. Patient states she's had 2 cardiac catheter without stent and ablations performed. He was then scheduled for a pacemaker which was not placed at his last hospitalization. Patient states he is not having any significant pain or shortness of breath. Patient is currently wearing his Holter monitor. Patient has no known drug allergies. PFSH Past Medical History Hx Anticoagulant Therapy: Yes Blood Disorders: No Anxiety: Yes Depression: No Heart Rhythm Problems: Yes (afib, pvc, AFLUTTER) Cancer: No Cardiovascular Problems: Yes High Cholesterol: No Chest Pain: Yes Congestive Heart Failure: Yes Diminished Hearing: No Endocrine: No Gastrointestinal Disorders: No Genitourinary: Yes (kidney stones) Hypertension: Yes Immune Disorder: No Implanted Vascular Access Dvce: No Kidney Stones: Yes (KIDNEY STONES REMOVED) Musculoskeletal: No Neurologic: Yes (syncope) Psychiatric: Yes Reproductive: No Respiratory: No Immunizations Current: Yes Sleep Apnea: No Past Surgical History Appendectomy: Yes Genitourinary Surgery: Yes (KIDNEY STONES OUT) Tonsillectomy: Yes Tympanostomy Tube: Yes Social History Alcohol Use: Yes (2-3 A drinks usually on Tuesday and Tuesday. No alcohol over the last week) Tobacco Use: Yes Substance Use: No Allergies-Medications (Allergen,Severity, Reaction): Coded Allergies: No Known Allergies (Verified , 03/01/17) Reported Meds & Prescriptions Reported Meds & Active Scripts Active Pradaxa (Dabigatran) 150 Mg Cap 150 Mg PO BID Amiodarone (Amiodarone HCl) 200 Mg Tab 200 Mg PO DAILY Defibrillator Jacket (Device) 1 Ea Device 1 Ea EXTERNAL ONCE Energy = 150 Joules; VT Threshold = 150 BPM; VF Threshold = 200 BPM Use up to 90 days only Review of Systems Except as stated in HPI: all other systems reviewed are Neg General / Constitutional: No: Fever Eyes: No: Visual changes HENT: No: Headaches Cardiovascular: Positive: Palpitations, Irregular Rhythm, Tachycardia, No: Chest Pain or Discomfort, Diaphoresis, Syncope, Dyspnea on exertion, Varicosities, Edema, Cyanosis, Varicosities, Phlebitis, Claudication, Other Respiratory: No: Shortness of Breath Gastrointestinal: No: Abdominal Pain Genitourinary: No: Dysuria Musculoskeletal: No: Pain Skin: No Rash Neurologic: No: Weakness Psychiatric: No: Depression Endocrine: No: Polydipsia Hematologic/Lymphatic: No: Easy Bruising Physical Exam Narrative GENERAL: Patient appears in no acute distress. SKIN: Warm and dry. Normal color. Normal turgor. HEAD: Atraumatic. Normocephalic. EYES: Pupils equal and round. No scleral icterus. No injection or drainage. ENT: No nasal bleeding or discharge. Mucous membranes pink and moist. Pharynx is clear. Airway is patent. NECK: Trachea midline. No JVD. CARDIOVASCULAR: Irregularly irregular rate and rhythm. Rate currently 96 bpm. RESPIRATORY: No accessory muscle use. Clear to auscultation. Breath sounds equal bilaterally. GASTROINTESTINAL: Abdomen soft, non-tender, nondistended. Hepatic and splenic margins not palpable. MUSCULOSKELETAL: Extremities without clubbing, cyanosis, or edema. No obvious deformities. NEUROLOGICAL: Awake and alert. No obvious cranial nerve deficits. Motor grossly within normal limits. Five out of 5 muscle strength in the arms and legs. Normal speech. PSYCHIATRIC: Appropriate mood and affect; insight and judgment normal. Data Data Last Documented VS Vital Signs Date Time Temp Pulse Resp B/P (MAP) Pulse Ox O2 Delivery O2 Flow Rate FiO2 03/01/17 15:30 108 16 97/66 (76) 99 Nasal Cannula 2.00 03/01/17 13:20 98.9 Orders Orders Electrocardiogram (03/01/17 13:50) B-Type Natriuretic Peptide (03/01/17 13:50) Ckmb (Isoenzyme) Profile (03/01/17 13:50) Complete Blood Count With Diff (03/01/17 13:50) Comprehensive Metabolic Panel (03/01/17 13:50) Magnesium (Mg) (03/01/17 13:50) Prothrombin Time / Inr (Pt) (03/01/17 13:50) Act Partial Throm Time (Ptt) (03/01/17 13:50) Troponin I (03/01/17 13:50) Chest, Single Ap (03/01/17 13:50) Ecg Monitoring (03/01/17 13:50) Bilateral Bp Monitoring (03/01/17 13:50) Iv Access Insert/Monitor (03/01/17 13:50) Oximetry (03/01/17 13:50) Oxygen Administration (03/01/17 13:50) Sodium Chloride 0.9% Flush (Ns Flush) (03/01/17 14:00) Diltiazem Inj (Cardizem Inj) (03/01/17 14:43) Sodium Chlorid 0.9% 500 Ml Inj (Ns 500 M (03/01/17 14:45) Diltiazem Inj (Cardizem Inj) (03/01/17 14:45) Vital Signs (Adult) Q15MX4,Q4H (03/01/17 15:17) Panel Machine Tender / Telemetry QUINN.Q8H (03/01/17 15:17) Cardiac Rhythm QUINN.Q8H (03/01/17 15:17) Notify Dr: Other (03/01/17 15:17) Diltiazem Inj (Cardizem Inj) (03/01/17 15:30) Admit Order (Ed Use Only) (03/01/17 15:57) Consult Cardiology (03/01/17 ) Labs Laboratory Tests Test 03/01/17 13:50 White Blood Count 11.1 TH/MM3 Red Blood Count 4.90 MIL/MM3 Hemoglobin 15.4 GM/DL Hematocrit 45.4 % Mean Corpuscular Volume 92.7 FL Mean Corpuscular Hemoglobin 31.5 PG Mean Corpuscular Hemoglobin Concent 34.0 % Red Cell Distribution Width 13.1 % Platelet Count 318 TH/MM3 Mean Platelet Volume 8.1 FL Neutrophils (%) (Auto) 67.6 % Lymphocytes (%) (Auto) 21.6 % Monocytes (%) (Auto) 7.9 % Eosinophils (%) (Auto) 2.1 % Basophils (%) (Auto) 0.8 % Neutrophils # (Auto) 7.5 TH/MM3 Lymphocytes # (Auto) 2.4 TH/MM3 Monocytes # (Auto) 0.9 TH/MM3 Eosinophils # (Auto) 0.2 TH/MM3 Basophils # (Auto) 0.1 TH/MM3 CBC Comment DIFF FINAL Differential Comment Prothrombin Time 12.3 SEC Prothromb Time International Ratio 1.1 RATIO Activated Partial Thromboplast Time 47.2 SEC Blood Urea Nitrogen 16 MG/DL Creatinine 1.38 MG/DL Random Glucose 86 MG/DL Total Protein 8.3 GM/DL Albumin 4.2 GM/DL Calcium Level 9.0 MG/DL Magnesium Level 2.3 MG/DL Alkaline Phosphatase 73 U/L Aspartate Amino Transf (AST/SGOT) 12 U/L Alanine Aminotransferase (ALT/SGPT) 24 U/L Total Bilirubin 1.1 MG/DL Sodium Level 138 MEQ/L Potassium Level 4.7 MEQ/L Chloride Level 104 MEQ/L Carbon Dioxide Level 25.2 MEQ/L Anion Gap 9 MEQ/L Estimat Glomerular Filtration Rate 53 ML/MIN Total Creatine Kinase 69 U/L Troponin I LESS THAN 0.02 NG/ML B-Type Natriuretic Peptide 308 PG/ML MDM Medical Decision Making Medical Screen Exam Complete: Yes Emergency Medical Condition: Yes Differential Diagnosis Palpitations. Irregular heart rate. Tachycardia. Narrative Course Patient is medically stable at time of exam. EKG showed A. fib with RVR with a right bundle branch block. This is reviewed with Dr. Castro. Labs ordered including CBC, CMP, coagulation studies, cardiac panel, and proBNP. Chest x-ray is ordered. Patient is given 15 mg Cardizem IV with the rate slowing from the 120s to 90 to 100 beats per minute. Patient is then started on Cardizem drip per Dr. Castro. Labs show CBC normal except for slight leukocytosis of 11.1. Coagulation studies show PT of 12.3, INR 1.1, APTT of 47.2. Chemistries are unremarkable except for creatinine of 1.38, GFR 53, AST of 12, BNP is 308. Troponin is less than 0.02. Total protein is 8.3. 1540 hrs. call was placed to the hospitalist for admission. Consult was placed for Dr. Morgan. Diagnosis Primary Impression: Atrial fibrillation with RVR Admitting Information Admitting Physician Requests: Admit Condition: Stable Gavin Smith Mar 01, 2017 13:27
[2017-03-01] MEDS ORDERED: SODIUM CHLORIDE 0.9% FLUSH 10 ML FLUSH IVF PRN (14:00)
--- NOTE | 2017-03-01 14:19 | RADRPT ---
EXAM DATE/TIME: 03/01/2017 14:11 [facility] COMPARISON: CHEST SINGLE AP, February 09, 2017, 17:07. INDICATIONS : Chest pain. MEDICAL HISTORY : Congestive heart failure. A-fib SURGICAL HISTORY : ENCOUNTER: Initial ACUITY: 1 day PAIN SCORE: 8/10 LOCATION: Left chest FINDINGS: The cardiac silhouette is enlarged in transverse diameter. The lungs are free of acute parenchymal op acity. No effusions are identified. Osseous structures are intact. CONCLUSION: Cardiomegaly. No acute cardiopulmonary disease. Yaron Roper MD on March 01, 2017 at 14:18 Board Certified Radiologist. This report was verified electronically.
[2017-03-01] MEDS ORDERED: DILTIAZEM HCL 25 MG/5 ML VIAL ONE (14:43)
[2017-03-01] MEDS ORDERED: DILTIAZEM HCL 25 MG/5 ML VIAL IV ONE (14:45)
[2017-03-01] MEDS ORDERED: SODIUM CHLORID 0.9% 500 ML INJ 500 ML IV ONE (14:45)
--- NOTE | 2017-03-01 14:58 | PD ---
Physical Exam Date Seen by Provider: Mar 01, 2017 Time Seen by Provider: 14:56 Narrative 56-year-old male came to the emergency room for tachycardia. He has history of atrial fibrillation and his sleeping car conductor is Dr. Morgan. Patient had gone to see him yesterday and he noticed that the heart rate was high. He wanted the patient to come to the emergency room yesterday but the patient is here today instead. He has been short of breath upon ambulation. No history of chest pain. Patient is on Eliquis. He's been seen by my PA and I'm supervising him. His heart rate is in 120s to 130s. The sleeping car conductor wants the patient to be admitted. Patient does not appear to be in any significant distress. I have asked him to be started on Cardizem bolus and drip. The PA has been waiting to talk to Dr. Morgan after putting the call out. Patient will require admission. Data Data Last Documented VS Vital Signs Date Time Temp Pulse Resp B/P (MAP) Pulse Ox O2 Delivery O2 Flow Rate FiO2 03/01/17 15:30 108 16 97/66 (76) 99 Nasal Cannula 2.00 03/01/17 13:20 98.9 Orders Orders Electrocardiogram (03/01/17 13:50) B-Type Natriuretic Peptide (03/01/17 13:50) Ckmb (Isoenzyme) Profile (03/01/17 13:50) Complete Blood Count With Diff (03/01/17 13:50) Comprehensive Metabolic Panel (03/01/17 13:50) Magnesium (Mg) (03/01/17 13:50) Prothrombin Time / Inr (Pt) (03/01/17 13:50) Act Partial Throm Time (Ptt) (03/01/17 13:50) Troponin I (03/01/17 13:50) Chest, Single Ap (03/01/17 13:50) Ecg Monitoring (03/01/17 13:50) Bilateral Bp Monitoring (03/01/17 13:50) Iv Access Insert/Monitor (03/01/17 13:50) Oximetry (03/01/17 13:50) Oxygen Administration (03/01/17 13:50) Sodium Chloride 0.9% Flush (Ns Flush) (03/01/17 14:00) Diltiazem Inj (Cardizem Inj) (03/01/17 14:43) Sodium Chlorid 0.9% 500 Ml Inj (Ns 500 M (03/01/17 14:45) Diltiazem Inj (Cardizem Inj) (03/01/17 14:45) Vital Signs (Adult) Q15MX4,Q4H (03/01/17 15:17) Logistics Center Manager / Telemetry QUINN.Q8H (03/01/17 15:17) Cardiac Rhythm QUINN.Q8H (03/01/17 15:17) Notify Dr: Other (03/01/17 15:17) Diltiazem Inj (Cardizem Inj) (03/01/17 15:30) Admit Order (Ed Use Only) (03/01/17 15:57) Consult Cardiology (03/01/17 ) Labs Laboratory Tests Test 03/01/17 13:50 White Blood Count 11.1 TH/MM3 Red Blood Count 4.90 MIL/MM3 Hemoglobin 15.4 GM/DL Hematocrit 45.4 % Mean Corpuscular Volume 92.7 FL Mean Corpuscular Hemoglobin 31.5 PG Mean Corpuscular Hemoglobin Concent 34.0 % Red Cell Distribution Width 13.1 % Platelet Count 318 TH/MM3 Mean Platelet Volume 8.1 FL Neutrophils (%) (Auto) 67.6 % Lymphocytes (%) (Auto) 21.6 % Monocytes (%) (Auto) 7.9 % Eosinophils (%) (Auto) 2.1 % Basophils (%) (Auto) 0.8 % Neutrophils # (Auto) 7.5 TH/MM3 Lymphocytes # (Auto) 2.4 TH/MM3 Monocytes # (Auto) 0.9 TH/MM3 Eosinophils # (Auto) 0.2 TH/MM3 Basophils # (Auto) 0.1 TH/MM3 CBC Comment DIFF FINAL Differential Comment Prothrombin Time 12.3 SEC Prothromb Time International Ratio 1.1 RATIO Activated Partial Thromboplast Time 47.2 SEC Blood Urea Nitrogen 16 MG/DL Creatinine 1.38 MG/DL Random Glucose 86 MG/DL Total Protein 8.3 GM/DL Albumin 4.2 GM/DL Calcium Level 9.0 MG/DL Magnesium Level 2.3 MG/DL Alkaline Phosphatase 73 U/L Aspartate Amino Transf (AST/SGOT) 12 U/L Alanine Aminotransferase (ALT/SGPT) 24 U/L Total Bilirubin 1.1 MG/DL Sodium Level 138 MEQ/L Potassium Level 4.7 MEQ/L Chloride Level 104 MEQ/L Carbon Dioxide Level 25.2 MEQ/L Anion Gap 9 MEQ/L Estimat Glomerular Filtration Rate 53 ML/MIN Total Creatine Kinase 69 U/L Troponin I LESS THAN 0.02 NG/ML B-Type Natriuretic Peptide 308 PG/ML MDM Supervised Visit with MIRIAM: Yes Critical Care Narrative Aggregate critical care time was 30 minutes. Time to perform other separately billable procedures was not included in the critical care time. My time did not include minutes spent treating any other patients simultaneously or on activities that did not directly contribute to the patient's treatment. The services I provided to this patient were to treat and/or prevent clinically significant deterioration that could result in: A. fib with RVR. Cardizem bolus and drip. I provided critical care services requiring my management, as noted below: Chart data review, documentation time, medication orders and management, vital sign assessments/reviewing monitor data, ordering and reviewing lab tests, ordering and interpreting/reviewing x-rays and diagnostic studies, care of the patient and discussion of the patient with the admitting physicians. Condition: Stable Kamran Castro MD Mar 01, 2017 14:58
[2017-03-01 14:59] LABS: AUTOMATED NEUTROPHIL # 7.5 TH/MM3 (1.8-7.7); BASOPHIL # 0.1 TH/MM3 (0-0.2); BASOPHIL % 0.8 % (0.0-2.0); EOSINOPHIL # 0.2 TH/MM3 (0-0.4); EOSINOPHIL % 2.1 % (0.0-4.0); HEMATOCRIT 45.4 % (39.0-51.0); HEMO FLAGS DIFF FINAL; LYMPH % 21.6 % (9.0-44.0); LYMPHOCYTE # 2.4 TH/MM3 (1.0-4.8); MEAN CELL VOLUME 92.7 FL (80.0-100.0); MEAN CORPUSCULAR HEMOGLOBIN 31.5 PG (27.0-34.0); MONO % 7.9 % (0.0-8.0); NEUT % 67.6 % (16.0-70.0); PLATELET COUNT 318 TH/MM3 (150-450); RED CELL DISTRIBUTION WIDTH 13.1 % (11.6-17.2); WHITE BLOOD COUNT 11.1 TH/MM3 (4.0-11.0)
[2017-03-01 15:17] LABS: ALT (GPT) 24 U/L (12-78); ANION GAP 9 MEQ/L (5-15); AST (GOT) 12 U/L (15-37); BICARBONATE 25.2 MEQ/L (21.0-32.0); BLOOD UREA NITROGEN 16 MG/DL (7-18); CHLORIDE 104 MEQ/L (98-107); GLOMERULAR FILTRATION RATE 53 ML/MIN (>89); MAGNESIUM 2.3 MG/DL (1.5-2.5); POTASSIUM 4.7 MEQ/L (3.5-5.1); SODIUM (NA) 138 MEQ/L (136-145)
[2017-03-01] MEDS ORDERED: DILTIAZEM INJ 125 MG in SODIUM CHLORIDE 0.9% INJ 100 ML IV PRN (15:30)
[2017-03-01 15:32] LABS: ALKALINE PHOSPHATASE 73 U/L (45-117); TOTAL BILIRUBIN ADULT 1.1 MG/DL (0.2-1.0)
[2017-03-01 15:33] LABS: APTT (PATIENT) 47.2 SEC (24.3-30.1); INTERNATIONAL NORMALIZED RATIO 1.1 RATIO; PROTHROMBIN TIME - PATIENT 12.3 SEC (9.8-11.6)
[2017-03-01 15:41] LABS: CREATINE KINASE 69 U/L (39-308)
--- NOTE | 2017-03-01 16:14 | HHI.HP ---
[facility] Service [facility] Primary Care Physician Francoise Pereira MD Admission Diagnosis AFIB WITH RVR Diagnoses: (1) Atrial fibrillation with RVR Diagnosis: Principal Chief Complaint: rapid heart rate Travel History International Travel<30 Days: No Contact w/Intl Traveler <30 Da: No Traveled to Known Affected Are: No History of Present Illness patient is a 56 y/o male with history of atrial fibrillation- s/p ablation about three weeks ago who presented to ER with rapid heart rate. he says that he was doing fine till yesterday when he started to have tachycardia. he was seen by and was advised to come to the hospital yesterday but he says that he wanted to wait at the time. this morning he started to have rapid heart rate again for which he came to ER. he denies any chest pain, sob, dizziness or palpitations. Review of Systems Constitutional: DENIES: Fever, Weight loss, Chills, Night Sweats Eyes: DENIES: Blurred vision, Diplopia, Vision loss, Double Vision Ears, nose, mouth, throat: DENIES: Tinnitus, Vertigo, Throat pain, Epistaxis Respiratory: DENIES: Apneas, Cough, Snoring, Wheezing, Hemoptysis, Sputum production, Shortness of breath Cardiovascular: DENIES: Chest pain, Palpitations, Syncope, Dyspnea on Exertion , PND, Lower Extremity Edema, Orthopnea, Claudication Gastrointestinal: DENIES: Abdominal pain, Black stools, Bloody stools, Constipation, Diarrhea, Nausea, Vomiting, Difficulty Swallowing, Anorexia Genitourinary: DENIES: Urinary frequency, Urgency, Hematuria, Dysuria Musculoskeletal: DENIES: Joint pain, Muscle aches, Stiffness, Joint Swelling Integumentary: DENIES: Rash Neurologic: DENIES: Abnormal gait, Headache, Localized weakness, Paresthesias, Seizures, Speech Problems, Tremor, Poor Balance Psychiatric: DENIES: Anxiety, Confusion, Mood changes, Depression, Hallucinations, Agitation, Suicidal Ideation, Homicidal Ideation, Delusions Past Family Social History Past Medical History atrial fibrillation Past Surgical History appendectomy Reported Medications Pradaxa (Dabigatran) 150 Mg Cap 150 Mg PO BID Amiodarone (Amiodarone HCl) 200 Mg Tab 200 Mg PO DAILY Defibrillator Jacket (Device) 1 Ea Device 1 Ea EXTERNAL ONCE Energy = 150 Joules; VT Threshold = 150 BPM; VF Threshold = 200 BPM Use up to 90 days only Allergies: Coded Allergies: No Known Allergies (Verified , 03/01/17) Active Ordered Medications Current Medications Sodium Chloride (NS Flush) 2 ml UNSCH PRN IVF FLUSH AFTER USING IV ACCESS; Start 03/01/17 at 14:00 Diltiazem HCl (Cardizem Inj) 25 mg STK-MED ONCE .ROUTE ; Start 03/01/17 at 14:43 ; Stop 03/01/17 at 14:44; Status DC Sodium Chloride 500 ml @ 500 mls/hr BOLUS ONCE IV Last administered on 14:52; Start 03/01/17 at 14:45; Stop 03/01/17 at 15:44; Status DC Diltiazem HCl (Cardizem Inj) 15 mg ONCE ONCE IV Last administered on 14:52; Start 03/01/17 at 14:45; Stop 03/01/17 at 14:46; Status DC Diltiazem HCl 125 mg/Sodium Chloride 125 ml @ 5 mls/hr TITRATE PRN IV Tachycardia Last administered on 03/01/17 16:04; Start 03/01/17 at 15:30 Family History CHF in mother Social History quit smoking and drinking. Physical Exam Vital Signs Vital Signs Date Time Temp Pulse Resp B/P (MAP) Pulse Ox O2 Delivery O2 Flow Rate FiO2 03/01/17 16:04 129 125/58 03/01/17 16:02 123 16 125/58 (80) 99 Nasal Cannula 2.00 03/01/17 15:30 108 16 97/66 (76) 99 Nasal Cannula 2.00 03/01/17 14:45 108 16 97/56 (70) 99 Room Air 83/51 (62) 03/01/17 14:43 108 16 76/59 (65) 99 Room Air 113/76 (88) 03/01/17 14:41 112 16 113/62 (79) 99 Nasal Cannula 2.00 03/01/17 13:40 98 Nasal Cannula 2.00 03/01/17 13:40 16 99 Room Air 03/01/17 13:20 98.9 133 20 109/79 (89) 95 Room Air Physical Exam GENERAL: This is a well-nourished, well-developed patient, in no apparent distress. SKIN: No rashes, ecchymoses or lesions. Cool and dry. HEAD: Atraumatic. Normocephalic. No temporal or scalp tenderness. EYES: Pupils equal round and reactive. Extraocular motions intact. No scleral icterus. No injection or drainage. ENT: Nose without bleeding, purulent drainage or septal hematoma. Throat without erythema, tonsillar hypertrophy or exudate. Uvula midline. Airway patent. NECK: Trachea midline. No JVD or lymphadenopathy. Supple, nontender, no meningeal signs. CARDIOVASCULAR: irregular and tachycardic RESPIRATORY: Clear to auscultation. Breath sounds equal bilaterally. No wheezes , rales, or rhonchi. GASTROINTESTINAL: Abdomen soft, non-tender, nondistended. No hepato-splenomegaly , or palpable masses. No guarding. MUSCULOSKELETAL: Extremities without clubbing, cyanosis, or edema. No joint tenderness, effusion, or edema noted. No calf tenderness. Negative Homans sign bilaterally. NEUROLOGICAL: Awake and alert. Cranial nerves II through XII intact. Motor and sensory grossly within normal limits. Five out of 5 muscle strength in all muscle groups. Normal speech. Laboratory Laboratory Tests Test 03/01/17 13:50 White Blood Count 11.1 Red Blood Count 4.90 Hemoglobin 15.4 Hematocrit 45.4 Mean Corpuscular Volume 92.7 Mean Corpuscular Hemoglobin 31.5 Mean Corpuscular Hemoglobin Concent 34.0 Red Cell Distribution Width 13.1 Platelet Count 318 Mean Platelet Volume 8.1 Neutrophils (%) (Auto) 67.6 Lymphocytes (%) (Auto) 21.6 Monocytes (%) (Auto) 7.9 Eosinophils (%) (Auto) 2.1 Basophils (%) (Auto) 0.8 Neutrophils # (Auto) 7.5 Lymphocytes # (Auto) 2.4 Monocytes # (Auto) 0.9 Eosinophils # (Auto) 0.2 Basophils # (Auto) 0.1 CBC Comment DIFF FINAL Differential Comment Prothrombin Time 12.3 Prothromb Time International Ratio 1.1 Activated Partial Thromboplast Time 47.2 Blood Urea Nitrogen 16 Creatinine 1.38 Random Glucose 86 Total Protein 8.3 Albumin 4.2 Calcium Level 9.0 Magnesium Level 2.3 Alkaline Phosphatase 73 Aspartate Amino Transf (AST/SGOT) 12 Alanine Aminotransferase (ALT/SGPT) 24 Total Bilirubin 1.1 Sodium Level 138 Potassium Level 4.7 Chloride Level 104 Carbon Dioxide Level 25.2 Anion Gap 9 Estimat Glomerular Filtration Rate 53 Total Creatine Kinase 69 Troponin I LESS THAN 0.02 B-Type Natriuretic Peptide 308 Result Diagram: 03/01/17 1350 03/01/17 1350 Caprini VTE Risk Assessment Caprini VTE Risk Assessment: Mod/High Risk (score >= 2) Caprini Risk Assessment Model Point Value = 1 Point Value = 2 Point Value = 3 Point Value = 5 Age 41-60 Minor surgery BMI > 25 kg/m2 Swollen legs Varicose veins or History of unexplained or recurrent spontaneous Oral contraceptives or hormone replacement Sepsis (< 1 month) Serious lung disease, including pneumonia (< 1 month) Abnormal pulmonary function Acute myocardial infarction Congestive heart failure (< 1 month) History of inflammatory bowel disease Medical patient at bed rest Age 61-74 Arthroscopic surgery Major open surgery (> 45 min) Laparoscopic surgery (> 45 min) Malignancy Confined to bed (> 72 hours) Immobilizing plaster cast Central venous access Age >= 75 History of VTE Family history of VTE Factor V Leiden Prothrombin [id number] Lupus anticoagulant Anticardiolipin antibodies Elevated serum homocysteine Heparin-induced thrombocytopenia Other congenital or acquired thrombophilia Stroke (< 1 month) Elective arthroplasty Hip, pelvis, or leg fracture Acute spinal cord injury (< 1 month) Prophylaxis Regimen Total Risk Factor Score Risk Level Prophylaxis Regimen 0-1 Low Early ambulation 2 Moderate Order ONE of the following: *Sequential Compression Device (SCD) *Heparin 5000 units SQ BID 3-4 Higher Order ONE of the following medications: *Heparin 5000 units SQ TID *Enoxaparin/Lovenox 40 mg SQ daily (WT < 150 kg, CrCl > 30 mL/min) *Enoxaparin/Lovenox 30 mg SQ daily (WT < 150 kg, CrCl > 10-29 mL/min) *Enoxaparin/Lovenox 30 mg SQ BID (WT < 150 kg, CrCl > 30 mL/min) AND/OR *Sequential Compression Device (SCD) 5 or more Highest Order ONE of the following medications: *Heparin 5000 units SQ TID (Preferred with Epidurals) *Enoxaparin/Lovenox 40 mg SQ daily (WT < 150 kg, CrCl > 30 mL/min) *Enoxaparin/Lovenox 30 mg SQ daily (WT < 150 kg, CrCl > 10-29 mL/min) *Enoxaparin/Lovenox 30 mg SQ BID (WT < 150 kg, CrCl > 30 mL/min) AND *Sequential Compression Device (SCD) Assessment and Plan Assessment and Plan A/P - atrial fibrillation with rapid ventricular response- s/p recent ablation continue with cardizem drip- resume Amiodarone and Pradaxa- will consult cardiology. -DVT prophylaxis; on Pradaxa Discussed Condition With ER and the patient- RN. Physician Certification 2 Midnight Certification Type: Admission for Inpatient Services Order for Inpatient Services The services are ordered in accordance with Medicare regulations or non- Medicare payer requirements, as applicable. In the case of services not specified as inpatient-only, they are appropriately provided as inpatient services in accordance with the 2-midnight benchmark. Estimated LOS (days): 2 days is the estimated time the patient will need to remain in the hospital, assuming treatment plan goals are met and no additional complications. Post-Hospital Plan: Home Physician Certification 2 Midnight Certification Type: Admission for Inpatient Services Order for Inpatient Services The services are ordered in accordance with Medicare regulations or non- Medicare payer requirements, as applicable. In the case of services not specified as inpatient-only, they are appropriately provided as inpatient services in accordance with the 2-midnight benchmark. Estimated LOS (days): 2 days is the estimated time the patient will need to remain in the hospital, assuming treatment plan goals are met and no additional complications. Post-Hospital Plan: Home Louis Andrews MD Mar 01, 2017 16:14
[2017-03-01] MEDS ORDERED: ONDANSETRON HCL 4 MG/2 ML VIAL IV PUSH PRN (16:15)
[2017-03-01] MEDS: DABIGATRAN ETEXILATE 150 MG CAP PO SCH (20:54)
[2017-03-02] VITALS (31 sets, daily range): BP systolic 92–109; BP diastolic 60–74; PULSE 57–112; RESP 14–20; TEMP 97.5–98.4; O2SAT 96–99
--- NOTE | 2017-03-02 07:48 | HHI.PR ---
Subjective Remarks in no acute distress. denies chest pain or dizziness. off the cardizem drip since last night. d/w the RN and no acute issues over night. Objective Vitals Vital Signs Date Time Temp Pulse Resp B/P (MAP) Pulse Ox O2 Delivery O2 Flow Rate FiO2 03/02/17 06:00 62 03/02/17 05:00 67 03/02/17 04:00 57 03/02/17 03:00 97.6 59 16 92/60 (71) 96 03/02/17 03:00 58 03/02/17 02:00 60 03/02/17 01:00 62 03/02/17 00:00 66 03/02/17 00:00 66 93/64 (74) 03/01/17 23:15 97.9 76 16 87/65 (72) 93 03/01/17 23:00 81 03/01/17 22:00 82 03/01/17 21:00 86 03/01/17 20:00 97.7 94 16 103/62 (76) 96 03/01/17 20:00 84 03/01/17 19:00 94 03/01/17 18:02 90 03/01/17 17:52 98.3 90 20 100/64 (76) 98 03/01/17 17:35 03/01/17 16:04 129 125/58 03/01/17 16:02 123 16 125/58 (80) 99 Nasal Cannula 2.00 03/01/17 15:30 108 16 97/66 (76) 99 Nasal Cannula 2.00 03/01/17 14:45 108 16 97/56 (70) 99 Room Air 83/51 (62) 03/01/17 14:43 108 16 76/59 (65) 99 Room Air 113/76 (88) 03/01/17 14:41 112 16 113/62 (79) 99 Nasal Cannula 2.00 03/01/17 13:40 98 Nasal Cannula 2.00 03/01/17 13:40 16 99 Room Air 03/01/17 13:20 98.9 133 20 109/79 (89) 95 Room Air I/O 03/01/17 03/01/17 03/01/17 03/02/17 03/02/17 03/02/17 07:00 15:00 23:00 07:00 15:00 23:00 Intake Total 500 ml 552 ml Output Total 1675 ml Balance 500 ml -1123 ml Intake Oral 480 ml IV Total 500 ml 72 ml Output Urine Total 1675 ml # Bowel Movements 0 Result Diagram: 03/01/17 1350 03/01/17 1350 Imaging Last Impressions Chest X-Ray 03/01/17 1350 Signed Impressions: Service Date/Time: Wednesday, March 01, 2017 14:11 - CONCLUSION: Cardiomegaly. No acute cardiopulmonary disease. Yaron Roper MD Objective Remarks GENERAL: This is a well-nourished, well-developed patient, in no apparent distress. CARDIOVASCULAR: Regular rate and regular rhythm without murmurs, gallops, or rubs. RESPIRATORY: Clear to auscultation. Breath sounds equal bilaterally. No wheezes , rales, or rhonchi. GASTROINTESTINAL: Abdomen soft, non-tender, nondistended. Normal, active bowel sounds MUSCULOSKELETAL: Extremities without clubbing, cyanosis, or edema. NEURO: Alert & Oriented x4 to person, place, time, situation. Moves all ext x4 Procedures none Medications and IVs Current Medications Sodium Chloride (NS Flush) 2 ml UNSCH PRN IVF FLUSH AFTER USING IV ACCESS; Start 03/01/17 at 14:00 Diltiazem HCl (Cardizem Inj) 25 mg STK-MED ONCE .ROUTE ; Start 03/01/17 at 14:43 ; Stop 03/01/17 at 14:44; Status DC Sodium Chloride 500 ml @ 500 mls/hr BOLUS ONCE IV Last administered on 14:52; Start 03/01/17 at 14:45; Stop 03/01/17 at 15:44; Status DC Diltiazem HCl (Cardizem Inj) 15 mg ONCE ONCE IV Last administered on 14:52; Start 03/01/17 at 14:45; Stop 03/01/17 at 14:46; Status DC Diltiazem HCl 125 mg/Sodium Chloride 125 ml @ 5 mls/hr TITRATE PRN IV Tachycardia Last administered on 03/01/17 16:04; Start 03/01/17 at 15:30; Stop 03/01/17 at 23:46; Status DC Amiodarone HCl (Cordarone) 200 mg DAILY PO ; Start 03/02/17 at 09:00 Dabigatran (Pradaxa) 150 mg BID PO Last administered on 03/01/17t 20:54; Start 03/01/17 at 21:00 Ondansetron HCl (Zofran Inj) 4 mg Q8HR PRN IV PUSH NAUSEA; Start 03/01/17 at 16 :15 A/P Assessment and Plan - atrial fibrillation with rapid ventricular response- s/p recent ablation now HR controlled- off the cardizem drip. continue Amiodarone and Pradaxa- cardiology consult pending. -DVT prophylaxis; on Pradaxa Discharge Planning awaiting cardiology evaluation. d/w the patient and RN. Louis Andrews MD Mar 02, 2017 07:48
[2017-03-02] MEDS: AMIODARONE 200 MG TAB PO SCH (08:26)
[2017-03-02] MEDS: DABIGATRAN ETEXILATE 150 MG CAP PO SCH ×2 (08:44→21:17)
--- NOTE | 2017-03-02 14:23 | EKG ---
Date Performed: 03/01/2017 Time Performed: 14:30:50 PTAGE: 56 years EKG: ATRIAL FIBRILLATION WITH RAPID VENTRICULAR RESPONSE RIGHT BUNDLE BRANCH BLOCK LEFT POSTERIO R FASCICULAR BLOCK ABNORMAL ECG PREVIOUS TRACING : 02/10/2017 08.35 DOCTOR: Nate Trujillo Interpretating Date/Time 03/02/2017 14:21:36
--- NOTE | 2017-03-02 20:47 | MB ---
cc: ERAN GARCIA M.D. DATE OF CONSULTATION 03/02/17 ELECTROPHYSIOLOGY CONSULTATION HISTORY OF PRESENT ILLNESS Mr. Guevara is a 56-year-old gentleman with congestive heart failure, cardiomyopathy, atrial fibrillation, tachycardia, mediated cardiomyopathy, previous atrial fibrillation ablation, on multiple medications, heart rate still high, possible atrial tachycardia, admitted due to atrial fibrillation, atrial tachycardia with biventricular response. IV Cardizem was initiated. Heart rate very difficult still to control. I was consulted for further evaluation and management. The chart was reviewed. The patient was evaluated. ALLERGIES None. SOCIAL HISTORY The patient is negative for smoking and drinking currently. FAMILY HISTORY Noncontributory to his current medical condition. MEDICATIONS He is on: 1. Pradaxa 150 milligrams twice a day. 2. Amiodarone 200 milligrams a day. 3. Cardizem CD 120 milligrams a day. REVIEW OF SYSTEMS He refers palpitation, shortness of breath but no chest pain, no chest discomfort. No fever. PHYSICAL EXAMINATION GENERAL: Alert, fully oriented. VITAL SIGNS: His blood pressure 94/60, pulse 98 on telemetry, respiratory rate 18. LUNGS: Ventilated. CARDIOVASCULAR: S1-S2, irregular, tachycardic. ABDOMEN: Obese. No mass. No bruits. EXTREMITIES: No edema. CARDIOLOGY STUDIES Electrocardiogram on hospitalization for atrial fibrillation, atrial tachycardia with biventricular response. Currently, telemetry showed a rate of around 99 beats per minute. LABORATORY DATA Hemoglobin 15.4, white blood cell 11.1, potassium 4.7, creatinine 1.38, troponin less than 0.02. INR 1.1. ASSESSMENT AND RECOMMENDATIONS Mr. Guevara has cardiomyopathy. He has atrial fibrillation. He has previous ablation, heart rate very difficult to control. He has a defibrillatory vest to prevent sudden . The gentleman is not on MOHAN inhibitor nor ARBs because systolic blood pressure dropped in the 70s. At this point my recommendation continue with IV Cardizem. He will need electrophysiology study and ablation. The risks, the nature and the benefit of the procedure are clearly stated to him. The risks include pneumothorax, cardiac perforation, stroke and even . He understood and agreed to proceed. I will keep him n.p.o. after breakfast. Possible ablation tomorrow afternoon. Case extensively discussed with him. MD LO Partida /6:02 PM /8:29 PM
[2017-03-03] VITALS (26 sets, daily range): BP systolic 94–117; BP diastolic 64–77; PULSE 62–94; RESP 16; TEMP 97.1–97.9; O2SAT 95–100
--- NOTE | 2017-03-03 07:57 | HHI.PR ---
Subjective Remarks in no distress. no chest pain or dizziness. Objective Vitals Vital Signs Date Time Temp Pulse Resp B/P (MAP) Pulse Ox O2 Delivery O2 Flow Rate FiO2 03/03/17 06:00 64 03/03/17 05:00 64 03/03/17 04:44 97.5 69 94/64 (74) 98 03/03/17 04:00 62 03/03/17 02:00 64 03/03/17 01:00 70 03/03/17 00:00 66 03/03/17 00:00 97.9 73 98/67 (77) 98 03/02/17 22:00 74 03/02/17 21:00 86 03/02/17 20:00 78 03/02/17 20:00 97.9 79 104/72 (83) 97 03/02/17 18:00 108 03/02/17 17:00 82 03/02/17 16:00 80 03/02/17 15:00 78 03/02/17 15:00 98.4 84 20 109/74 (86) 98 03/02/17 14:00 88 03/02/17 13:00 74 03/02/17 12:51 72 03/02/17 12:00 112 03/02/17 11:13 85 03/02/17 11:10 97.5 85 20 94/60 (71) 99 03/02/17 11:00 87 03/02/17 10:59 97.5 85 20 94/60 (71) 03/02/17 10:13 79 03/02/17 10:00 78 03/02/17 09:00 82 03/02/17 08:43 73 03/02/17 08:00 64 I/O 03/02/17 03/02/17 03/02/17 03/03/17 03/03/17 03/03/17 07:00 15:00 23:00 07:00 15:00 23:00 Intake Total 552 ml 600 ml 480 ml Output Total 1675 ml 650 ml Balance -1123 ml 600 ml -170 ml Intake Oral 480 ml 600 ml 480 ml IV Total 72 ml Output Urine Total 1675 ml 650 ml # Voids 4 # Bowel Movements 0 Result Diagram: 03/01/17 1350 03/01/17 1350 Imaging Last Impressions Chest X-Ray 03/01/17 1350 Signed Impressions: Service Date/Time: Wednesday, March 01, 2017 14:11 - CONCLUSION: Cardiomegaly. No acute cardiopulmonary disease. Yaron Roper MD Objective Remarks GENERAL: This is a well-nourished, well-developed patient, in no apparent distress. CARDIOVASCULAR: Regular rate and regular rhythm without murmurs, gallops, or rubs. RESPIRATORY: Clear to auscultation. Breath sounds equal bilaterally. No wheezes , rales, or rhonchi. GASTROINTESTINAL: Abdomen soft, non-tender, nondistended. Normal, active bowel sounds MUSCULOSKELETAL: Extremities without clubbing, cyanosis, or edema. NEURO: Alert & Oriented x4 to person, place, time, situation. Moves all ext x4 Medications and IVs Current Medications Sodium Chloride (NS Flush) 2 ml UNSCH PRN IVF FLUSH AFTER USING IV ACCESS; Start 03/01/17 at 14:00 Diltiazem HCl (Cardizem Inj) 25 mg STK-MED ONCE .ROUTE ; Start 03/01/17 at 14:43 ; Stop 03/01/17 at 14:44; Status DC Sodium Chloride 500 ml @ 500 mls/hr BOLUS ONCE IV Last administered on 14:52; Start 03/01/17 at 14:45; Stop 03/01/17 at 15:44; Status DC Diltiazem HCl (Cardizem Inj) 15 mg ONCE ONCE IV Last administered on 14:52; Start 03/01/17 at 14:45; Stop 03/01/17 at 14:46; Status DC Diltiazem HCl 125 mg/Sodium Chloride 125 ml @ 5 mls/hr TITRATE PRN IV Tachycardia Last administered on 03/01/17 16:04; Start 03/01/17 at 15:30; Stop 03/01/17 at 23:46; Status DC Amiodarone HCl (Cordarone) 200 mg DAILY PO Last administered on 03/02/17 08:26 ; Start 03/02/17 at 09:00 Dabigatran (Pradaxa) 150 mg BID PO Last administered on 03/02/17 21:17; Start 03/01/17 at 21:00; Stop 03/03/17 at 05:00; Status DC Ondansetron HCl (Zofran Inj) 4 mg Q8HR PRN IV PUSH NAUSEA; Start 03/01/17 at 16 :15 A/P Assessment and Plan - atrial fibrillation with rapid ventricular response- s/p recent ablation now HR controlled- off the cardizem drip. continue Amiodarone - cardiology consult appreciated and plan for EP study and ablation. -DVT prophylaxis; resume Pradaxa when ok with cardiology. Discharge Planning when cleared by cardiology. Louis Andrews MD Mar 03, 2017 07:57
[2017-03-03] MEDS: AMIODARONE 200 MG TAB PO SCH (08:14)
--- NOTE | 2017-03-03 16:58 | HHI.PR ---
Subjective Remarks Feeling ok Objective Vital Signs Date Time Temp Pulse Resp B/P (MAP) Pulse Ox O2 Delivery O2 Flow Rate FiO2 03/03/17 14:06 80 03/03/17 13:06 76 03/03/17 12:00 75 03/03/17 11:30 94 16 108/72 (84) 99 03/03/17 11:01 90 03/03/17 10:00 94 03/03/17 09:00 84 03/03/17 08:00 74 03/03/17 08:00 97.1 74 16 109/77 (88) 100 03/03/17 07:00 67 03/03/17 06:00 64 03/03/17 05:00 64 03/03/17 04:44 97.5 69 94/64 (74) 98 03/03/17 04:00 62 03/03/17 03:00 62 03/03/17 02:00 64 03/03/17 01:00 70 03/03/17 00:00 66 03/03/17 00:00 97.9 73 98/67 (77) 98 03/02/17 23:00 63 03/02/17 22:00 74 03/02/17 21:00 86 03/02/17 20:00 78 03/02/17 20:00 97.9 79 104/72 (83) 97 03/02/17 19:00 81 03/02/17 18:00 108 03/02/17 17:00 82 I/O 03/02/17 03/02/17 03/02/17 03/03/17 03/03/17 03/03/17 07:00 15:00 23:00 07:00 15:00 23:00 Intake Total 552 ml 600 ml 480 ml Output Total 1675 ml 650 ml Balance -1123 ml 600 ml -170 ml Intake Oral 480 ml 600 ml 480 ml IV Total 72 ml Output Urine Total 1675 ml 650 ml # Voids 4 # Bowel Movements 0 Result Diagram: 03/01/17 1350 03/01/17 135 Imaging Alert, fully oriented Lungs: ventilated Heart: S1, S2 irregular, tachycardia, irregular Abdomen: soft, no mass Ext: no edema Last Impressions Chest X-Ray 03/01/17 1350 Signed Impressions: Service Date/Time: Wednesday, March 01, 2017 14:11 - CONCLUSION: Cardiomegaly. No acute cardiopulmonary disease. Yaron Roper MD Current Medications Medications (Trade) Dose Ordered Sig/Mohan Route Start Time Stop Time Status Last Admin (NS Flush) 2 ml UNSCH PRN IVF 03/01/17 14:00 (Cordarone) 200 mg DAILY PO 03/02/17 09:00 03/03/17 08:14 (Zofran Inj) 4 mg Q8HR PRN IV PUSH 03/01/17 16:15 Assessment and Plan Problem List: (1) Atrial fibrillation with RVR ICD Codes: I48.91 - Unspecified atrial fibrillation Status: Acute Plan: In atrial fibrillation HR high EPS and ablation tomorrow Case discussed with patient (2) CHF (congestive heart failure) ICD Codes: I50.9 - Heart failure, unspecified Status: Chronic Plan: CHF II On optimal medical management Polina Morgan MD Mar 03, 2017 16:58
[2017-03-04] VITALS (20 sets, daily range): BP systolic 88–102; BP diastolic 63–86; PULSE 64–104; TEMP 97.7–98.5; O2SAT 91–99
[2017-03-04] MEDS ORDERED: HEPARIN-NS/PF INJ 2,000 ML ONE (07:29)
[2017-03-04] MEDS ORDERED: ISOPROTERENOL HCL 1 MG/5 ML AMP ONE (07:48)
[2017-03-04] MEDS ORDERED: LEVOFLOXACIN 500 MG PREMIX INJ 100 ML IV ONE (07:48)
[2017-03-04] MEDS ORDERED: HEPARIN SODIUM - IV 10,000 UNITS/10 ML VIAL ONE (07:48)
[2017-03-04] MEDS ORDERED: HEPARIN-D5W 25,000 U/250 ML 250 ML ONE (07:48)
[2017-03-04] MEDS: AMIODARONE 200 MG TAB PO SCH (09:00)
[2017-03-04] MEDS ORDERED: SODIUM CHLOR 0.9% 250 ML INJ 250 ML ONE (09:47)
[2017-03-04] MEDS ORDERED: PROTAMINE SULFATE 50 MG/5 ML VIAL ONE ×2 (10:15→10:32)
[2017-03-04] MEDS ORDERED: FUROSEMIDE 40 MG/4 ML VIAL ONE (10:15)
[2017-03-04] MEDS ORDERED: METOCLOPRAMIDE HCL 10 MG/2 ML VIAL IV PUSH PRN (10:30)
[2017-03-04] MEDS ORDERED: oxyCODONE/ACETAMINOPHEN 5 MG/325 MG TAB PO PRN ×2 (10:30)
[2017-03-04] MEDS ORDERED: LIDOCAINE HCL 1% 50 ML VIAL INFIL PRN (10:30)
[2017-03-04] MEDS ORDERED: ATROPINE SULFATE 1 MG/ML VIAL IV PUSH PRN (10:30)
[2017-03-04] MEDS ORDERED: SODIUM CHLOR 0.9% 250 ML INJ 250 ML IV PRN (10:30)
[2017-03-04] MEDS ORDERED: LORazepam 2 MG/ML VIAL IV PUSH PRN (10:30)
[2017-03-04] MEDS ORDERED: ONDANSETRON HCL 4 MG/2 ML VIAL IV PUSH PRN (10:30)
--- NOTE | 2017-03-04 10:42 | CATHPROC ---
[employer] HIS Report Study Information Study Number Scheduled Start Study Start [id number] 03/04/2017 Mar 04 2017 7:10AM Referring Institution Admit Source Facility Department 1 Other [facility] Physician and Clinical Staff Initial Polina Christianson Color Maker Michelle Otero RCIS TECH2 Other Anesthesia, IRONWORKER WIRE FENCE ERECTOR Recorder Charlene Avery,BREANN Scrub Geri Mendez,VALUE STREAM COACH TECH2 Procedures Performed Procedure Location (Site) Vessel Name Ablation Procedure ICE CATHETER INSERT RA Atruim RF Ablation LT. ATRIUM LT. ATRIUM Equipment Time Automation Controls Specialist Description Size Mfg Part Number Used/Scraped NEEDLE, TRANSSEPTAL NRG 98 07:53 [facility] [id number] Used C1 [employer]/ EP 07:53 KIT, TRANSDUCER / AFIB [id number] Used PACER [id number] CATHETER, TACTICATH ABLAT BUNDLE 07:53 [facility] Used 65 BUNDLE *[id number]- BUNDLE [id number] CATHETER, FR7 OPTIMA SPIRAL 07:53 [facility] FR7 *[id number]- Used BUNDLE BUNDLE [id number] 07:53 [facility] CATHETER, JSN, QUAD BUNDLE FR 5 *[id number]- Used BUNDLE [id number] 07:53 [facility] CATHETER, JSN, QUAD BUNDLE FR 5 *[id number]- Used BUNDLE [id number] SET, COOL POINT TUBING 07:53 [facility]UND[facility] *[id number]- Used BUNDLE BUNDLE SHEATH, FR8.5 STEERABLE SM 07:53 [facility]UN[facility] 71CM [id number] Used 71CM BUNDLE COVER, TRANSDUCER CABLE 07:53 [employer] [id number] Used ACUNAV 07:53 CORDIS/PACER SHEATH, FR10 ARMANDO 11CM FR 10 [id number] Used 07:53 CORDIS/PACER SHEATH, FR9 ARMANDO 11CM FR 9 [id number] Used [id number] 07:53 [employer] PACK, CCL CUSTOM * Used *[id number] 07:53 MEDLINE PACER NGUYEN, LIMB * 2530 *[id number] Used [id number] 07:53 [employer] MEDICAL SHEATH, FR4.5 PRELUDE 11CM FR 4.5 Used [id number] 07:53 NAMIC TUBING, HIGH PRESSURE 48" 48" Used *[id number] 07:53 NAMIC TUBING, HIGH PRESSURE 48" 48" Used *[id number] 07:53 [facility],WARM AIR CCL * Used *[id number] 07:53 [facility] MEDICAL ELECTRODE KIT, MARGARITA X SURFACE * [id number] Used [id number] 07:53 [facility] MEDICAL SHEATH, EPS, FR6 FAST CATH FR 6 Used *[id number] 07:53 [facility] MEDICAL SHEATH, EPS, FR7 FAST CATH FR 7 [id number] Used 195739 07:53 [facility] MEDICAL SHEATH, EPS, FR8 FAST CATH FR 8 Used *[id number] CATHETER, ACUNAV FR10 ICE [id number] 08:36 MOO FR 10 Used (MOO) *[id number] [facility] PAD, ELECTROSURGICAL 07:53 * [id number] *[id number] Used SURGICAL GROUNDING (BLUE) History: Allergies Allergy Reaction No Known Allergies History: Risk Factors Previous Heart Failure Yes Labs Hgb (g/dl) Hct (%) RBC (MIL/MM3) WBC (l/cumm) Platelets (thousands) 11.60-17.00 35.00-51.00 4.00-5.90 4.00-11.00 150.00-450.00 15.0 45 4.9 11 318 Glucose (mg/dl) BUN (mg/dl) Creatinine (mg/dl) BUN:Creatinine (1:x) 74.00-106.00 7.00-18.00 0.50-1.30 10.00-20.00 86 16 1.4 11.4 Na (meq/l) K (meq/l) 136.00-145.00 3.50-5.10 138 4.7 INR (PTT:PT) 0.90-1.10 1.1 Medication Medication Total Dose (Bolus/Oral) Medication Total Dosage/Unit 1% XYLOCAINE 40 mL HEPARIN 75307 units LASIX 40 mg METOPROLOL 5 units/hr PROTAMINE 40 mg Medications (Bolus/Oral) Medication Time Given Dosage/Unit Administered By Reason 1% XYLOCAINE 03/04/2017 8:20:19 AM 20 mL Polina Morgan 20 mL 1% XYLOCAINE given in lab by Polina Morgan in Left Groin via Subcutaneous. 1% XYLOCAINE 03/04/2017 8:27:33 AM 20 mL Polian Morgan 20 mL 1% XYLOCAINE given in lab by Polina Morgan in Right Groin via Subcutaneous. HEPARIN 03/04/2017 8:36:36 AM 18590 units Anesthesia, IRONWORKER WIRE FENCE ERECTOR As per physicians v erbal order 61428 units HEPARIN given in lab by Anesthesia, IRONWORKER WIRE FENCE ERECTOR via Peripheral IV. Ordered by Polina Morgan. [place] son: As per physicians verbal order. HEPARIN 03/04/2017 8:52:20 AM 4000 units Anesthesia, IRONWORKER WIRE FENCE ERECTOR As per physicians ve rbal order 4000 units HEPARIN given in lab by Anesthesia, IRONWORKER WIRE FENCE ERECTOR via Peripheral IV. Ordered by Polina Morgan. Reas on: As per physicians verbal order. HEPARIN 03/04/2017 9:09:00 AM 2000 units Anesthesia, IRONWORKER WIRE FENCE ERECTOR As per physicians ve rbal order 2000 units HEPARIN given in lab by Anesthesia, IRONWORKER WIRE FENCE ERECTOR via Peripheral IV. Ordered by Polina Morgan. Reas on: As per physicians verbal order. HEPARIN 03/04/2017 9:27:44 AM 2000 units Anesthesia, IRONWORKER WIRE FENCE ERECTOR As per physicians ve rbal order 2000 units HEPARIN given in lab by Anesthesia, IRONWORKER WIRE FENCE ERECTOR via Peripheral IV. Ordered by Polina Morgan. Reas on: As per physicians verbal order. HEPARIN 03/04/2017 9:43:41 AM 2000 units Anesthesia, IRONWORKER WIRE FENCE ERECTOR 2000 units HEPARIN given in lab by Anesthesia, IRONWORKER WIRE FENCE ERECTOR via Peripheral IV. Ordered by Polina Morgan. METOPROLOL 03/04/2017 10:14:19 AM 5 units/hr Anesthesia, IRONWORKER WIRE FENCE ERECTOR As per physicians verbal order 5 units/hr METOPROLOL given in lab by Anesthesia, IRONWORKER WIRE FENCE ERECTOR via Peripheral IV. Pump/Drip Flow = 0 ml/hr us ing [Solution Name]. Ordered by Polina Morgan. Reason: As per physicians verbal order. PROTAMINE 03/04/2017 10:16:11 AM 40 mg Anesthesia, IRONWORKER WIRE FENCE ERECTOR As per physicians dru bal order 40 mg PROTAMINE given in lab by Anesthesia, IRONWORKER WIRE FENCE ERECTOR via Peripheral IV. Ordered by Polina Morgan. Reason: As per physicians verbal order. LASIX 03/04/2017 10:16:27 AM 40 mg Anesthesia, IRONWORKER WIRE FENCE ERECTOR As per physicians verba l order 40 mg LASIX given in lab by Anesthesia, IRONWORKER WIRE FENCE ERECTOR via Peripheral IV. Ordered by Polina Morgan. Reason: As per physicians verbal order. Medication (Drip) Medication Time Given Dosage/Unit Concentration/Unit Diluent (ml) Solution HEPARIN DRIP 03/04/2017 8:52:21 AM 1000 units/hr 68193 units 250 D5W 1000 units/hr HEPARIN DRIP given in lab by Anesthesia, IRONWORKER WIRE FENCE ERECTOR via Peripheral IV. Pump/Drip Flow = 10 ml /hr [place] [address] units in 250 ml. Ordered by Polina Morgan. Reason: As per physicians verbal order. ISUPREL 03/04/2017 9:55:52 AM 8 mcg/min 1 mg 250 NaCl .9 8 mcg/min ISUPREL given in lab by Anesthesia, IRONWORKER WIRE FENCE ERECTOR via Peripheral IV. Pump/Drip Flow = 120 ml/hr usin g NaCl .9 with a concentration of 1 mg in 250 ml. Ordered by Polina Morgan. Reason: As per physicians verbal order. LEVAQUIN 03/04/2017 8:00:20 AM 100 mL/hr 500 100 NaCl .9 100 mL/hr LEVAQUIN given in lab by Anesthesia, IRONWORKER WIRE FENCE ERECTOR via Peripheral IV. Pump/Drip Flow = 0 ml/hr using NaCl .9 with a concentration of 500 in 100 ml. Ordered by Polina Morgan. Reason: As per physicians verbal order. palomo insertion Initial Case Assessment Final Case Assessment Cardiovascular HR Rhythm NIBP 96 sr 120/70 Edema Present Skin color Skin None Normal Warm Dry Circulatory - Right Pulses Dorsalis Pedis 2 Scale (0,1,2,3,4,d) Circulatory - Left Pulses Dorsalis Pedis 2 Scale (0,1,2,3,4,d) Circulatory - Lower Extremities Color Lower Right Color Lower Left Normal Normal Neurological State Oriented to time-place- Lethargic Moves all extremities person Respiration - General Respiration Rate SpO2 (%) (B/min) 12 99 Chronological Log Time Study Chronological Log 7:26:56 Patient arrived via Bed. 7:26:57 Patient Name, D.O.B, / Armband Verified By R.N. 7:26:58 Consent signed by the physician and the patient and verified by the [facility] staff. 7:26:58 Pre-op and post- op instructions given; patient acknowledges understanding of instructions. 7:26:59 Verbal Stimulation=2 Physical Stimulation=2 Airway=2 Respiration=2 TOTAL=8. (0=absent, 1=li mited, 2=present) 7:27:11 Anesthesia at bedside. Assumes care of patient. 7:27:13 Patient has been NPO for More than 6Hrs. 7:27:14 Skin Breakdown- none per pt 7::21 Patient Warmer Placed on the Table. 7::23 Disposable Defibrillator Pads Placed On Patient. 7::25 Adrianne Prominences Protected 7::26 A # 18 IV was noted in the Antecubital (right). Grade = 0 0.9ns kvo 7::27 A # 20 IV was noted in the Antecubital (left). Grade = 0 0.9ns kvo 7:27:28 History and physical on the chart or being dictated. 7:28:00 Life vest off when defib pads on. 7:49:46 Assessment: Initial Case 7:49:47 Table restraints applied according to hospital policy 7:52:59 Reference ECG taken 7:53:13 [facility] rep present 100 mL/hr LEVAQUIN given in lab by Anesthesia, IRONWORKER WIRE FENCE ERECTOR via Peripheral IV. Pump/Drip Flow = 0 ml/hr using NaCl .9 with 8:00:20 a concentration of 500 in 100 ml. Ordered by Polina Morgan. Reason: As per physicians verbal ord er. palomo insertion 8:00:55 Bilateral groins prepped with 2% chlorhexidine, and draped after a 3 minute waiting time. 8:14:18 MD arrived. Time Out. Correct patient, procedure, procedure equipment, site and side verified with physician present. Time 8:16:00 concurred by MD, individual staff and IRONWORKER WIRE FENCE ERECTOR. Time Out #2 - Consents verified, patient in correct position, all results are labled and display ed, safety precautions 8:16:13 taken, antibiotics administered. Time out concurred by MD, individual staff and IRONWORKER WIRE FENCE ERECTOR in procedur e 8:16:44 Case Start 8:16:48 SAMIRA in progress 8:19:29 SAMIRA complete. 8:20:19 20 mL 1% XYLOCAINE given in lab by Polina Morgan in Left Groin via Subcutaneous. 8:20:43 Vascular access was obtained in the Fem Vein (left). 8:20:49 Vascular access was obtained in the Fem Vein (left). 8:20:54 Vascular access was obtained in the Fem Vein (left). 8:21:00 Vascular access was obtained in the Fem Art (left). A SHEATH, FR4.5 PRELUDE 11CM FR 4.5 was advanced into the Fem Art (right) using the Modified Dipti ezra technique. 8:21:16 0.9ns pressure bag connected. 8:22:27 A SHEATH, EPS, FR6 FAST CATH FR 6 was advanced into the Fem Vein (left) using the Modified S eldinger technique. 8:22:34 A SHEATH, EPS, FR7 FAST CATH FR 7 was advanced into the Fem Vein (left) using the Modified S eldinger technique. 8:22:48 A SHEATH, FR10 ARMANDO 11CM FR 10 was advanced into the Fem Vein (left) using the Modified Se jasvir technique. 8:27:33 20 mL 1% XYLOCAINE given in lab by Polina Morgan in Right Groin via Subcutaneous. 8:27:47 A SHEATH, EPS, FR8 FAST CATH FR 8 was advanced into the Fem Vein (right) using the Modified Seldinger technique. A CATHETER, JSN, QUAD BUNDLE FR 5 was advanced vis Fem Vein (left) and placed in the CS. Placeme nt was visually 8:29:09 confirmed under fluoroscopy. A CATHETER, JSN, QUAD BUNDLE FR 5 was advanced vis Fem Vein (left) and placed in the HIS. Placem ent was 8:29:22 visually confirmed under fluoroscopy. 8:30:00 CATHETER, ACUNAV FR10 ICE (MOO) FR 10 Was Postioned. A SHEATH, FR8.5 STEERABLE SM 71CM BUNDLE 71CM was exchanged in the Fem Vein (right). This was ne cessary in 8:34:26 order to accomodate a larger catheter. 8:34:37 baylis needle in 8:34:42 transeptal, baylis out A CATHETER, FR7 OPTIMA SPIRAL BUNDLE FR7 was advanced vis Fem Vein (right) and placed in the LA. Placement 8:36:04 was visually confirmed under fluoroscopy. 49012 units HEPARIN given in lab by Anesthesia, IRONWORKER WIRE FENCE ERECTOR via Peripheral IV. Ordered by Polina Morgan . Reason: As per 8:36:36 physicians verbal order. 8:39:09 mapping in progress 8:42:20 Activated Clotting Time Drawn 8:46:09 Activated Clotting Time redrawn 8:47:00 Mapping complete. Catheter removed A CATHETER, TACTICATH ABLAT 65 BUNDLE was advanced vis Fem Vein (right) and placed in the LA. P lacement was 8:47:34 visually confirmed under fluoroscopy. 8:48:18 RF Ablation of the LT. ATRIUM with a CATHETER, TACTICATH ABLAT 65 BUNDLE. 8:50:11 ACT (Normal Range 90-180) = 294 4000 units HEPARIN given in lab by Anesthesia, IRONWORKER WIRE FENCE ERECTOR via Peripheral IV. Ordered by Polina Morgan Reason: As per 8:52:20 physicians verbal order. 1000 units/hr HEPARIN DRIP given in lab by Anesthesia, IRONWORKER WIRE FENCE ERECTOR via Peripheral IV. Pump/Drip Flow = 10 ml/hr using 8:52:21 [place] [address] units in 250 ml. Ordered by Hanscy. Eddie Reason: As per juli allen verbal order. 9:00:44 Activated Clotting Time Drawn 9:07:22 ACT (Normal Range 90-180) = 321 2000 units HEPARIN given in lab by Anesthesia, IRONWORKER WIRE FENCE ERECTOR via Peripheral IV. Ordered by Polina Morgan Reason: As per 9:09:00 physicians verbal order. 9:09:50 EPS in progress 9::44 Activated Clotting Time Drawn 9:27:03 ACT (Normal Range 90-180) = 341 2000 units HEPARIN given in lab by Anesthesia, IRONWORKER WIRE FENCE ERECTOR via Peripheral IV. Ordered by Polina Morgan Reason: As per 9:27:44 physicians verbal order. 9:36:00 Activated Clotting Time Drawn 9:37:44 Ablation catheter out. Mapping catheter in . 9:39:39 Mapping catheter out. Ablation catheter in. 9:41:39 ACT (Normal Range 90-180) = 345 9:43:41 2000 units HEPARIN given in lab by Anesthesia, IRONWORKER WIRE FENCE ERECTOR via Peripheral IV. Ordered by Helio Morgan. 9:55:37 Activated Clotting Time Drawn 8 mcg/min ISUPREL given in lab by Anesthesia, IRONWORKER WIRE FENCE ERECTOR via Peripheral IV. Pump/Drip Flow = 120 ml/h r using NaCl .9 with 9:55:52 a concentration of 1 mg in 250 ml. Ordered by Polina Morgan. Reason: As per physicians verbal o rder. 10:01:17 ACT (Normal Range 90-180) = 391 10:07:22 Isuprel off. 10:08:53 Ablation Catheter was removed 10:09:38 EPS in progress 10:11:21 Catheters removed without difficulty A SHEATH, FR9 ARMANDO 11CM FR 9 was exchanged in the Fem Vein (right). This was necessary in ord er to achieve 10:12:15 vascular hemostasis. 10:13:31 PACU called. Spoke to Bing 10:13:48 Bedside Report will be given. 5 units/hr METOPROLOL given in lab by Anesthesia, IRONWORKER WIRE FENCE ERECTOR via Peripheral IV. Pump/Drip Flow = 0 ml /hr using [Solution 10:14:19 Name]. Ordered by Polina Morgan. Reason: As per physicians verbal order. 10:14:47 Case End 10:14:50 No case complications noted. 10:14:54 Cine recording checked. 10:15:41 Sheath(s) left in place, secured, 0.9ns kvo connected and will be removed in Holding Area 40 mg PROTAMINE given in lab by Anesthesia, IRONWORKER WIRE FENCE ERECTOR via Peripheral IV. Ordered by Polina Morgan. R uriah: As per 10:16:11 physicians verbal order. 40 mg LASIX given in lab by Anesthesia, IRONWORKER WIRE FENCE ERECTOR via Peripheral IV. Ordered by Polina Morgan. Reaso n: As per physicians 10:16:27 verbal order. 10:29:38 Activated Clotting Time Drawn 10::48 ACT (Normal Range 90-180) = 241 10:34:12 Sterile dressing applied to site 10:34:19 Defibrillator and ground pads removed. Skin intact. 10:34:33 Ablation procedure performed: AFIB. 10:34:40 EP Procedure was performed. Assessment: Final Case, HR=96 BPM, Rhythm=sr, BPMN=523/70 mmhg, Edema=None, Color=Normal, Skin = Warm, Dry Right Pulses: Brent Ped=2 Left Pulses: Brent Ped=2 10:35:07 Lower Right Extremities: Color=Normal Lower Left Extremities: Color=Normal Neurological: State=Lethargic, Ox3, PORTER Respiration: Resp=12 B/min, SpO2=99 % 10:38:21 Patient moved to stretcher 10:40:42 Life vest back on pt 10:43:19 Activated Clotting Time Drawn 10:47:00 ACT (Normal Range 90-180) = 175 End Study - Contrast Media Used In Study Contrast Total Opened (mL) Total Used (mL) Total Wasted (mL) Unspecified 0 0 0 End Study - Maximum Contrast Load Max Contrast Load (mL) 375.0 End Study - Radiation Exposure Fluoro Time (minutes) 0.9 End Study - Patient Disposition Complications Transferred To Interventional Outcome No Telemetry Bed successful
[2017-03-04] MEDS ORDERED: DO NOT ADM ANY ANTICOAGULANT DRUGS PRN (10:50)
--- NOTE | 2017-03-04 11:16 | MA ---
cc: BRADY COSME MD, HANSCY M.D. MINOUEI, MOHAMMADREZA MD DATE: 03/04/2017 PROCEDURE Electrophysiology study, CS cannulation, 3-D mapping, transeptal approach, right and left heart catheterization, intracardiac echo, radiofrequency ablation of atrial fibrillation, pulmonary vein isolation, posterior ablation, anterior ablation, roof line creation, left atrial tachycardia ablation, repeat electrophysiology study on Isuprel infusion. INDICATION Mr. 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 The decision for electrophysiology study and ablation was taken. The risks, the nature and the benefit of the procedure were clearly stated to him. The risks include pneumothorax, cardiac perforation, stroke and even . The patient understood and agreed to proceed. DETAILS OF PROCEDURE As written informed consent was obtained prior to electrophysiology study, the patient was kept on the table where he was prepped and draped in the usual sterile fashion. Conscious sedation was initiated and maintained throughout the procedure by the anesthesiologist. Once sedation was verified, the right and left inguinal area was anesthetized with 2% Xylocaine. Using modified Seldinger technique, the left femoral vein was cannulated on three occasions and three guidewires were advanced. Over the wires a 6, 7 and 10 [place] Hemaquet were advanced. Then the left femoral artery was cannulated on one occasion and one guidewire was advanced. Over the wire a 4 [place] Hema[place] was advanced. Then the right femoral vein was cannulated on one occasion and one guidewire was advanced. Over the wire an 8 [place] Hema[place] was advanced. Then under fluoroscopic guidance through the 5 and 6 [place] H[place], two 5 [place] Rolando curved quadripolar electrophysiology catheters were advanced and positioned on the His as well as coronary sinus. The patient converted into sinus rhythm. Through the 10 [place] Hema[place], a Cordis-Mayer AcuNav intracardiac echo catheter was advanced and placed at the right atrium. Multiple views were obtained. There was no pericardial effusion. The pulmonary vein was seen. The atrial septal visualized. Then the 8 [place] Hemaquet in the right femoral vein was exchanged for an Agilis septal sheath that was placed all the way to the superior vena cava. Through the sheath a Raccoon needle was advanced. Then the sheath, the dilator and the needle were progressively advanced until foci engaged. Once engaged, the needle was advanced and RF was delivered for two seconds. I was able to cross into the left atrium. Once the needle completely crossed the dilator was advanced. Once the dilator crossed the sheath was advanced. Once the sheath crossed the dilator and the needle were removed. Intracardiac echo showed the sheath in good position. The patient already received 10,000 units of heparin. The goal was to keep an ACT around 250 seconds. Then through the sheath a [facility] 20-post circumferential catheter was advanced. Using the [employer] mapping system a three-dimensional configuration of the left atrium was obtained. Gallegos were taken at the left superior and inferior vein, right superior and inferior mitral valve and appendage. There was some signal in the left superior as well as the right inferior vein. Through the sheath a [facility] TactiCath 65 cm, 3.5 mm irrigated-tip mapping and radiofrequency ablation catheter was advanced. An esophageal probe was placed for comparative monitoring during ablation. I first isolated the left superior then the mitral area was ablated. The mitral valve was isolated again and lateral was ablated. I then isolated the right inferior vein. The roof line was created. At this point I did proceed with atrial pacing protocol. During atrial pacing protocol, atrial tachyarrhythmia was induced. I did re-map the atrium using the 20-post circumferential catheter. Early activation was at the level of the left atrial appendage. I subsequently mapped around the appendage progressively. The tachycardia cycle length was prolonged from 260, 300 to 410, and subsequently converted into sinus rhythm. Further burn was delivered in the area. Atrial pacing protocol was repeated again and no tachyarrhythmia was induced. Isuprel infusion was instilled at 10 mcg. No tachyarrhythmia was induced. Some junctional beats were observed. At that point the procedure was complete. The intracardiac echo showed no pericardial effusion. The transeptal sheath was replaced by a 9 [place] Hemaquet. No incident report. The patient tolerated the procedure. Blood loss minimal. FINDINGS 1. Electrocardiogram: At baseline the patient was in sinus rhythm. Post-procedure electrocardiogram was unchanged. 2. Basic interval: The basic cycle length was around 640 milliseconds at baseline. Post ablation it was around 1100 milliseconds. AH was around 140 and HV was around 62 milliseconds. 3. Tachyarrhythmia: Atrial fibrillation was mapped and ablated. Left atrial tachycardia was mapped and ablated. Ablation was successful. CONCLUSIONS Status electrophysiology study, mapping and radiofrequency ablation of atrial fibrillation, left atrial tachyarrhythmia, pulmonary vein isolation, posterior ablation, mitral line creation, left atrial appendage isolation. COMMENT/RECOMMENDATION The patient is going to be transferred to the telemetry unit. Be will be observed and when stable will be discharged home. Systolic blood pressure is 88. MOHAN inhibitor and Crestor cannot be added for heart failure management. Polina Morgan MD HS/BT /10:33 AM /10:45 AM
--- NOTE | 2017-03-04 11:45 | HHI.PR ---
Subjective Remarks had EP study earlier. in no distress. denies chest pain or sob. d/w the RN. Objective Vitals Vital Signs Date Time Temp Pulse Resp B/P (MAP) Pulse Ox O2 Delivery O2 Flow Rate FiO2 03/04/17 10:51 97.9 83 20 111/72 (85) 98 Nasal Cannula 2 03/04/17 04:21 97.8 75 88/63 (71) 97 03/04/17 04:00 68 03/04/17 03:00 68 03/04/17 02:00 64 03/04/17 01:00 68 03/04/17 00:00 66 03/04/17 00:00 97.7 75 89/68 (75) 95 03/03/17 23:00 68 03/03/17 22:00 80 03/03/17 21:00 88 03/03/17 20:00 97.8 84 101/71 (81) 95 03/03/17 20:00 88 03/03/17 19:00 85 03/03/17 18:00 84 03/03/17 17:00 88 03/03/17 16:00 74 03/03/17 15:00 78 03/03/17 15:00 97.8 77 16 117/68 (84) 96 03/03/17 14:06 80 03/03/17 13:06 76 03/03/17 12:00 75 I/O 03/03/17 03/03/17 03/03/17 03/04/17 03/04/17 03/04/17 07:00 15:00 23:00 07:00 15:00 23:00 Intake Total 480 ml 600 ml 462 ml Output Total 650 ml 725 ml 1150 ml Balance -170 ml -125 ml -688 ml Intake Oral 480 ml 600 ml 462 ml Output Urine Total 650 ml 725 ml 1150 ml # Bowel Movements 1 Result Diagram: 03/01/17 1350 03/01/17 1350 Imaging Last Impressions Chest X-Ray 03/01/17 135 Signed Impressions: Service Date/Time: Wednesday, March 01, 2017 14:11 - CONCLUSION: Cardiomegaly. No acute cardiopulmonary disease. Yaron Roper MD Objective Remarks GENERAL: This is a well-nourished, well-developed patient, in no apparent distress. CARDIOVASCULAR: Regular rate and regular rhythm without murmurs, gallops, or rubs. RESPIRATORY: Clear to auscultation. Breath sounds equal bilaterally. No wheezes , rales, or rhonchi. GASTROINTESTINAL: Abdomen soft, non-tender, nondistended. Normal, active bowel sounds MUSCULOSKELETAL: Extremities without clubbing, cyanosis, or edema. NEURO: Alert & Oriented x4 to person, place, time, situation. Moves all ext x4 Procedures EP study/ ablation Medications and IVs Current Medications Sodium Chloride (NS Flush) 2 ml UNSCH PRN IVF FLUSH AFTER USING IV ACCESS; Start 03/01/17 at 14:00 Diltiazem HCl (Cardizem Inj) 25 mg STK-MED ONCE .ROUTE ; Start 03/01/17 at 14:43 ; Stop 03/01/17 at 14:44; Status DC Sodium Chloride 500 ml @ 500 mls/hr BOLUS ONCE IV Last administered on 14:52; Start 03/01/17 at 14:45; Stop 03/01/17 at 15:44; Status DC Diltiazem HCl (Cardizem Inj) 15 mg ONCE ONCE IV Last administered on 14:52; Start 03/01/17 at 14:45; Stop 03/01/17 at 14:46; Status DC Diltiazem HCl 125 mg/Sodium Chloride 125 ml @ 5 mls/hr TITRATE PRN IV Tachycardia Last administered on 03/01/17 16:04; Start 03/01/17 at 15:30; Stop 03/01/17 at 23:46; Status DC Amiodarone HCl (Cordarone) 200 mg DAILY PO Last administered on 03/03/17 08:14 ; Start 03/02/17 at 09:00 Dabigatran (Pradaxa) 150 mg BID PO Last administered on 03/02/17 21:17; Start 03/01/17 at 21:00; Stop 03/03/17 at 05:00; Status DC Ondansetron HCl (Zofran Inj) 4 mg Q8HR PRN IV PUSH NAUSEA; Start 03/01/17 at 16 :15 Heparin Sodium/ Sodium Chloride 2,000 ml @ As Directed STK-MED ONCE .ROUTE Last administered on 03/04/17 07:29; Start 03/04/17 at 07:29; Stop 03/04/17 at 07:30; Status DC Heparin Sodium/ Dextrose 250 ml @ As Directed STK-MED ONCE .ROUTE ; Start 03/04 at 07:48; Stop 03/04/17 at 07:49; Status DC Isoproterenol HCl (Isuprel Inj) 1 mg STK-MED ONCE .ROUTE ; Start 03/04/17 at 07: 48; Stop 03/04/17 at 07:49; Status DC Levofloxacin/ Dextrose 100 ml @ As Directed STK-MED ONCE IV Last administered on 03/04/17t 08:00; Start 03/04/17 at 07:48; Stop 03/04/17 at 07:49; Status DC Heparin Sodium (Porcine) (Heparin Inj) 20,000 units STK-MED ONCE .ROUTE ; Start 03/04/17 at 07:48; Stop 03/04/17 at 07:49; Status DC Sodium Chloride 250 ml @ As Directed STK-MED ONCE .ROUTE ; Start 03/04/17 at 09 :47; Stop 03/04/17 at 09:48; Status DC Furosemide (Lasix Inj) 40 mg STK-MED ONCE .ROUTE ; Start 03/04/17 at 10:15; Stop 03/04/17 at 10:16; Status DC Protamine Sulfate (Protamine Sulfate Inj) 50 mg STK-MED ONCE .ROUTE ; Start 03/04/17 at 10:15; Stop 03/04/17 at 10:16; Status DC Oxycodone/ Acetaminophen (Percocet 5-325 Mg) 1 tab Q4H PRN PO PAIN SCALE 1 TO 4; Start 03/04/17 at 10:30 Oxycodone/ Acetaminophen (Percocet 5-325 Mg) 2 tab Q4H PRN PO PAIN SCALE 5 TO 10; Start 03/04/17 at 10:30 Lorazepam (Ativan Inj) 0.5 mg UNSCH PRN IV PUSH ANXIETY; Start 03/04/17 at 10: 30; Stop 03/05/17 at 10:29 Atropine Sulfate (Atropine Inj) 0.5 mg UNSCH PRN IV PUSH VAGAL REPONSE; Start 03/04/17 at 10:30 Sodium Chloride 250 ml @ 500 mls/hr ONCE PRN IV VAGAL REPONSE; Start 03/04/17 at 10:30; Stop 03/05/17 at 10:29 Metoclopramide HCl (Reglan Inj) 10 mg Q4H PRN IV PUSH NAUSEA; Start 03/04/17 at 10:30 Ondansetron HCl (Zofran Inj) 4 mg Q4H PRN IV PUSH NAUSEA; Start 03/04/17 at 10: 30 Lidocaine HCl (Xylocaine 1% Inj (50 ml)) 10 ml UNSCH PRN INFIL SHEATH REMOVAL; Start 03/04/17 at 10:30; Stop 03/05/17 at 10:29 Bacitracin (Bacitracin Oint Packet) 0.9 gm ONCE ONCE TOP ; Start 03/04/17 at 12 :00; Stop 03/04/17 at 12:01 Protamine Sulfate (Protamine Sulfate Inj) 50 mg STK-MED ONCE .ROUTE ; Start 03/04/17 at 10:32; Stop 03/04/17 at 10:33; Status DC A/P Assessment and Plan - atrial fibrillation with rapid ventricular response- s/p ablation today continue Amiodarone - cardiology following. -DVT prophylaxis; resume Pradaxa when ok with cardiology. Discharge Planning when cleared by cardiology. Louis Andrews MD Mar 04, 2017 11:45
[2017-03-04] MEDS ORDERED: ROCURONIUM INJ 50 MG/5 ML SYRINGE IV PUSH ONE (12:00)
[2017-03-04] MEDS ORDERED: ePHEDrine/NS 25 MG/5 ML SYR IV ONE (12:00)
[2017-03-04] MEDS ORDERED: LIDOCAINE HCL 1% PF 5 ML AMPULE OTHER ONE (12:00)
[2017-03-04] MEDS ORDERED: SODIUM CHLOR 0.9% 250 ML INJ 250 ML IV ONE (12:00)
[2017-03-04] MEDS ORDERED: METOPROLOL TARTRATE 5 MG/5 ML VIAL IV PUSH ONE (12:00)
[2017-03-04] MEDS ORDERED: PHENYLEPH/NS 1000 MCG/10 ML SYR IV ONE ×2 (12:00)
[2017-03-04] MEDS ORDERED: PHENYLEPHRINE HCL 10 MG/ML VIAL IV ONE (12:00)
[2017-03-04] MEDS ORDERED: SODIUM CHLORIDE 0.9% 20 ML VIAL IV ONE (12:00)
[2017-03-04] MEDS ORDERED: SODIUM CHLORID 0.9% 500 ML INJ 1,000 ML IV ONE (12:00)
[2017-03-04] MEDS ORDERED: BACITRACIN OINT 0.9 GM PKT TOP ONE (12:00)
[2017-03-04] MEDS ORDERED: MIDAZOLAM HCL 2 MG/2 ML VIAL IV ONE ×2 (12:00)
[2017-03-04] MEDS ORDERED: GLYCOPYRROLATE 1 MG/5 ML SYRINGE IV PUSH ONE (12:00)
[2017-03-04] MEDS ORDERED: PROPOFOL 200 MG/20 ML AMP IV ONE ×2 (12:00)
[2017-03-04] MEDS ORDERED: MORPHINE SULFATE 4 MG/ML INJ IV ONE (12:00)
[2017-03-05] VITALS (13 sets, daily range): BP systolic 93–109; BP diastolic 64–71; PULSE 79–110; RESP 16–18; TEMP 97.1–98.7; O2SAT 91–95
--- NOTE | 2017-03-05 05:23 | EKG ---
Date Performed: 03/04/2017 Time Performed: 11:13:53 PTAGE: 56 years EKG: Sinus rhythm WITH FIRST DEGREE AV BLOCK RIGHT BUNDLE BRANCH BLOCK LEFT POSTERIOR FASCICULAR BLOCK ABNORMAL ECG PREVIOUS TRACING : 03/01/2017 14.30 DOCTOR: Panfilo Saucedo Interpretating Date/Time 03/05/2017 05:15:27
[2017-03-05 05:36] LABS: APTT (PATIENT) 28.1 SEC (24.3-30.1); PROTHROMBIN TIME - PATIENT 11.3 SEC (9.8-11.6)
--- NOTE | 2017-03-05 08:01 | HHI.PR ---
Subjective Remarks in no acute distress. no chest pain, sob or dizziness. d/w the RN and no acute issues over night. Objective Vitals Vital Signs Date Time Temp Pulse Resp B/P (MAP) Pulse Ox O2 Delivery O2 Flow Rate FiO2 03/05/17 06:02 86 03/05/17 05:01 87 03/05/17 04:00 84 03/05/17 03:26 98.7 85 93/66 (75) 91 03/05/17 03:00 96 03/05/17 02:00 88 03/05/17 01:00 94 03/05/17 00:00 100 03/04/17 23:00 98.5 90 91/67 (75) 91 03/04/17 23:00 104 03/04/17 22:00 88 03/04/17 21:00 104 03/04/17 20:00 88 03/04/17 20:00 98.2 88 90/70 (77) 93 03/04/17 19:00 87 03/04/17 18:00 73 03/04/17 17:00 86 03/04/17 16:00 85 03/04/17 16:00 98.2 72 93/64 (74) 99 03/04/17 16:00 72 03/04/17 15:00 74 03/04/17 14:00 82 03/04/17 13:00 80 03/04/17 12:05 84 101/71 (81) 03/04/17 12:00 98.4 86 97/86 (90) 98 03/04/17 12:00 84 03/04/17 11:50 82 102/72 (82) 03/04/17 11:30 97.9 85 20 101/65 (77) 94 Room Air 03/04/17 11:15 82 20 102/66 (78) 98 03/04/17 11:00 80 20 102/68 (79) 97 Nasal Cannula 2 03/04/17 10:51 97.9 83 20 111/72 (85) 98 Nasal Cannula 2 I/O 03/04/17 03/04/17 03/04/17 03/05/17 03/05/17 03/05/17 07:00 15:00 23:00 07:00 15:00 23:00 Intake Total 462 ml 600 ml 480 ml Output Total 1150 ml 1250 ml 1575 ml Balance -688 ml -650 ml -1095 ml Intake Oral 462 ml 600 ml 480 ml Output Urine Total 1150 ml 1250 ml 1575 ml # Bowel Movements 0 Result Diagram: 03/01/17 1350 03/01/17 1350 Imaging Last Impressions Chest X-Ray 03/01/17 1350 Signed Impressions: Service Date/Time: Wednesday, March 01, 2017 14:11 - CONCLUSION: Cardiomegaly. No acute cardiopulmonary disease. Yaron Roper MD Objective Remarks GENERAL: This is a well-nourished, well-developed patient, in no apparent distress. CARDIOVASCULAR: Regular rate and regular rhythm without murmurs, gallops, or rubs. RESPIRATORY: Clear to auscultation. Breath sounds equal bilaterally. No wheezes , rales, or rhonchi. GASTROINTESTINAL: Abdomen soft, non-tender, nondistended. Normal, active bowel sounds MUSCULOSKELETAL: Extremities without clubbing, cyanosis, or edema. NEURO: Alert & Oriented x4 to person, place, time, situation. Moves all ext x4 Procedures EP study/ ablation Medications and IVs Current Medications Sodium Chloride (NS Flush) 2 ml UNSCH PRN IVF FLUSH AFTER USING IV ACCESS; Start 03/01/17 at 14:00 Diltiazem HCl (Cardizem Inj) 25 mg STK-MED ONCE .ROUTE ; Start 03/01/17 at 14:43 ; Stop 03/01/17 at 14:44; Status DC Sodium Chloride 500 ml @ 500 mls/hr BOLUS ONCE IV Last administered on 14:52; Start 03/01/17 at 14:45; Stop 03/01/17 at 15:44; Status DC Diltiazem HCl (Cardizem Inj) 15 mg ONCE ONCE IV Last administered on 14:52; Start 03/01/17 at 14:45; Stop 03/01/17 at 14:46; Status DC Diltiazem HCl 125 mg/Sodium Chloride 125 ml @ 5 mls/hr TITRATE PRN IV Tachycardia Last administered on 03/01/17 16:04; Start 03/01/17 at 15:30; Stop 03/01/17 at 23:46; Status DC Amiodarone HCl (Cordarone) 200 mg DAILY PO Last administered on 03/03/17 08:14 ; Start 03/02/17 at 09:00 Dabigatran (Pradaxa) 150 mg BID PO Last administered on 03/02/17 21:17; Start 03/01/17 at 21:00; Stop 03/03/17 at 05:00; Status DC Ondansetron HCl (Zofran Inj) 4 mg Q8HR PRN IV PUSH NAUSEA; Start 03/01/17 at 16 :15 Heparin Sodium/ Sodium Chloride 2,000 ml @ As Directed STK-MED ONCE .ROUTE Last administered on 03/04/17 07:29; Start 03/04/17 at 07:29; Stop 03/04/17 at 07:30; Status DC Heparin Sodium/ Dextrose 250 ml @ As Directed STK-MED ONCE .ROUTE ; Start 03/04 at 07:48; Stop 03/04/17 at 07:49; Status DC Isoproterenol HCl (Isuprel Inj) 1 mg STK-MED ONCE .ROUTE ; Start 03/04/17 at 07: 48; Stop 03/04/17 at 07:49; Status DC Levofloxacin/ Dextrose 100 ml @ As Directed STK-MED ONCE IV Last administered on 03/04/17 08:00; Start 03/04/17 at 07:48; Stop 03/04/17 at 07:49; Status DC Heparin Sodium (Porcine) (Heparin Inj) 20,000 units STK-MED ONCE .ROUTE ; Start 03/04/17 at 07:48; Stop 03/04/17 at 07:49; Status DC Sodium Chloride 250 ml @ As Directed STK-MED ONCE .ROUTE ; Start 03/04/17 at 09 :47; Stop 03/04/17 at 09:48; Status DC Furosemide (Lasix Inj) 40 mg STK-MED ONCE .ROUTE ; Start 03/04/17 at 10:15; Stop 03/04/17 at 10:16; Status DC Protamine Sulfate (Protamine Sulfate Inj) 50 mg STK-MED ONCE .ROUTE ; Start 03/04/17 at 10:15; Stop 03/04/17 at 10:16; Status DC Oxycodone/ Acetaminophen (Percocet 5-325 Mg) 1 tab Q4H PRN PO PAIN SCALE 1 TO 4; Start 03/04/17 at 10:30 Oxycodone/ Acetaminophen (Percocet 5-325 Mg) 2 tab Q4H PRN PO PAIN SCALE 5 TO 10; Start 03/04/17 at 10:30 Lorazepam (Ativan Inj) 0.5 mg UNSCH PRN IV PUSH ANXIETY; Start 03/04/17 at 10: 30; Stop 03/05/17 at 10:29 Atropine Sulfate (Atropine Inj) 0.5 mg UNSCH PRN IV PUSH VAGAL REPONSE; Start 03/04/17 at 10:30 Sodium Chloride 250 ml @ 500 mls/hr ONCE PRN IV VAGAL REPONSE; Start 03/04/17 at 10:30; Stop 03/05/17 at 10:29 Metoclopramide HCl (Reglan Inj) 10 mg Q4H PRN IV PUSH NAUSEA; Start 03/04/17 at 10:30 Ondansetron HCl (Zofran Inj) 4 mg Q4H PRN IV PUSH NAUSEA; Start 03/04/17 at 10: 30 Lidocaine HCl (Xylocaine 1% Inj (50 ml)) 10 ml UNSCH PRN INFIL SHEATH REMOVAL; Start 03/04/17 at 10:30; Stop 03/05/17 at 10:29 Bacitracin (Bacitracin Oint Packet) 0.9 gm ONCE ONCE TOP ; Start 03/04/17 at 12 :00; Stop 03/04/17 at 12:01; Status DC Protamine Sulfate (Protamine Sulfate Inj) 50 mg STK-MED ONCE .ROUTE ; Start 03/04/17 at 10:32; Stop 03/04/17 at 10:33; Status DC Miscellaneous Information ALL NURSING DEPARTME... UNSCH PRN .XX SEE LABEL COMMENTS; Start 03/04/17 at 10:50; Stop 03/05/17 at 10:49 A/P Problem List: (1) Atrial fibrillation with RVR ICD Code: I48.91 - Unspecified atrial fibrillation Status: Acute Assessment and Plan - atrial fibrillation with rapid ventricular response- s/p ablation. continue Amiodarone - cardiology following. -DVT prophylaxis; resume Pradaxa when ok with cardiology. Discharge Planning when cleared by cardiology. d/w the patient and Louis Johnson MD Mar 05, 2017 08:01
[2017-03-05] MEDS: AMIODARONE 200 MG TAB PO SCH (08:37)
--- NOTE | 2017-03-05 11:15 | HHI.DS ---
Discharge Summary Admission Date Mar 01, 2017 at 15:59 Discharge Date: Mar 05, 2017 Admitting Diagnosis AFIB WITH RVR (1) Atrial fibrillation with RVR ICD Code: I48.91 - Unspecified atrial fibrillation Diagnosis: Principal Status: Acute Procedures EP study/ ablation Brief History - From Admission patient is a 56 y/o male with history of atrial fibrillation- s/p ablation about three weeks ago who presented to ER with rapid heart rate. he says that he was doing fine till yesterday when he started to have tachycardia. he was seen by and was advised to come to the hospital yesterday but he says that he wanted to wait at the time. this morning he started to have rapid heart rate again for which he came to ER. he denies any chest pain, sob, dizziness or palpitations. CBC/BMP: 03/01/17 1350 03/01/17 1350 Significant Findings Laboratory Tests Test 03/05/17 04:57 Imaging Last Impressions Chest X-Ray 03/01/17 1350 Signed Impressions: Service Date/Time: Wednesday, March 01, 2017 14:11 - CONCLUSION: Cardiomegaly. No acute cardiopulmonary disease. Yaron Roper MD PE at Discharge GENERAL: This is a well-nourished, well-developed patient, in no apparent distress. CARDIOVASCULAR: Regular rate and regular rhythm without murmurs, gallops, or rubs. RESPIRATORY: Clear to auscultation. Breath sounds equal bilaterally. No wheezes , rales, or rhonchi. GASTROINTESTINAL: Abdomen soft, non-tender, nondistended. Normal, active bowel sounds MUSCULOSKELETAL: Extremities without clubbing, cyanosis, or edema. NEURO: Alert & Oriented x4 to person, place, time, situation. Moves all ext x4 Hospital Course - atrial fibrillation with rapid ventricular response- s/p ablation. continue Amiodarone - cardiology following. -DVT prophylaxis; resume Pradaxa when ok with cardiology. Pt Condition on Discharge: Stable Discharge Disposition: Discharge Home Discharge Time: <= 30 minutes Discharge Instructions DIET: Follow Instructions for: Heart Healthy Diet Activities you can perform: Regular-No Restrictions Follow up Referrals: Cardiology PCP Follow-up Continued Medications: Amiodarone (Amiodarone) 200 Mg Tab 200 MG PO DAILY for afib, #30 TAB Dabigatran (Pradaxa) 150 Mg Cap 150 MG PO BID for afib, #60 CAP Discontinued Medications: Diltiazem CD 24 HR (Cardizem CD 24 HR) 120 Mg Caper 120 MG PO DAILY, #30 CAP Louis Andrews MD Mar 05, 2017 11:14
--- NOTE | 2017-03-05 14:21 | EKG ---
Date Performed: 03/05/2017 Time Performed: 05:29:32 PTAGE: 56 years EKG: Sinus rhythm with 1st degree A-V block Right axis deviation Right bundle branch block Abnormal ECG PREVIOUS TRACING : 03/04/2017 11.13 DOCTOR: Panfilo Saucedo Interpretating Date/Time 03/05/2017 14:15:27
== END 2017-03-05 12:05 | disposition home or self-care (01) | DRG 274 ==
LOC: NEPE 13:18 → NEDA 15:59 → HCIN 17:43
PROVIDERS: ADMIT Internal Medicine; ATTEND Internal Medicine
PROC: 02K83ZZ Map Conduction Mechanism, Percutaneous Approach (ICD-10-PCS; 2017-03-04)
PROC: 4A023FZ Measurement of Cardiac Rhythm, Percutaneous Approach (ICD-10-PCS; 2017-03-04)
PROC: 4A0234Z Measurement of Cardiac Electrical Activity, Percutaneous Approach (ICD-10-PCS; 2017-03-04)
PROC: B246ZZZ Ultrasonography of Right and Left Heart (ICD-10-PCS; 2017-03-04)
PROC: 02583ZZ Destruction of Conduction Mechanism, Percutaneous Approach (ICD-10-PCS; principal; 2017-03-04 07:30)
DX: I48.91 Unspecified atrial fibrillation (principal); I11.0 Hypertensive heart disease with heart failure; I50.9 Heart failure, unspecified; I42.9 Cardiomyopathy, unspecified; F41.9 Anxiety disorder, unspecified; Z79.01 Long term (current) use of anticoagulants; Z87.442 Personal history of urinary calculi; I45.10 Unspecified right bundle-branch block
CPT/HCPCS: 71010; 76937; 80053; 82550; 83735; 83880; 84484; 85002; 85025; 85610; 85730; 93005; 93312; 93320; 93325; 93613; 93623; 93656; 93662; C1730; C1731; C1732; C1759; C1766; C2630; J1644; J1940; J1956; J2250; J2270; J2370; J2720; J3010; J7040; J7050